=== PATIENT | female | born 1950 | race Caucasian/White ===

== ENCOUNTER 2016-08-26 09:42 | Inpatient (IN) | payer OTHER ==
[~2016-08-26] VITALS: Ht 165.1 cm; Wt 75.7 kg
--- NOTE | ~2016-08-26 | EKG ---
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 08/27/16 0828 04 04 Ulises Paniagua MD, FAC /EPI
--- NOTE | ~2016-08-26 | HC ---
[facility] [place] [address] CONSULTATION Name: LUPE DOSHI Room #: 459-P ADM IN M.R.#: [id number] Admission: 08/26/16 Attend Phys: Mahamed Garnett MD Discharge: Date of : 50 Report #: [id number] THIS REPORT FOR: //name// CC: Mir Garnett HISTORY OF PRESENT ILLNESS: The patient was 66-year-old with cavitary left lung lesion. The patient was a 66-year-old diagnosed in April with systemic lupus erythematosus. Placed on prednisone and has been slowly weaning down to 10 mg a day. She still has not felt well since her hospitalization. She has intermittent night sweats and low grade fever. Over the last several weeks, she has had progressive pain in her left shoulder. Imaging studies showed a cavitary lesion in her left lung. I have not been able to visualize this CT scan. She was scheduled to have another CT scan with contrast today, but her creatinine was up to 1.8 and this was put on hold. She has had mild weight loss. No hemoptysis. Minimal cough, no sputum production. ALLERGIES: NAPROSYN, DOXYCYCLINE. MEDICATIONS: As noted on her OCT. She was on oral antibiotics. She did not know the nature of it. She has been on that for approximately 2 weeks. PAST MEDICAL HISTORY, FAMILY HISTORY, AND SOCIAL HISTORY: Unchanged from her history and physical. It is noted that she did have right lung biopsy in 2013, which revealed diffuse nodular lymphoid, hyperplasia involving the right upper lobe. She also at that time grew Aspergillus from her bronchoscopy. There was no positive pathology for fungus or AFB and cultures of lymph node from that surgery was negative as well. The patient lives around [place], [place]. She is a past smoker with minimal alcohol intake. She was also diagnosed with hepatitis C genotype 1a, but has not been on any treatment nor she had any further workup for this. FAMILY HISTORY: Noncontributory. SOCIAL HISTORY: As noted above, has remained fairly active. No HIV risk factors. Her HIV antibody in 2013 was negative. REVIEW OF SYSTEMS: She has had no peripheral edema. No nausea, vomiting, diarrhea, dysuria or frequency. PHYSICAL EXAMINATION: VITAL SIGNS: She is afebrile, hemodynamically stable. GENERAL: She is alert and cooperative and pleasant, in no acute distress. SKIN: Unremarkable. LYMPH: Unremarkable. [address] [address] CONSULTATION Name: LUPE DOSHI Room #: 459-P [facility] IN [facility].#: [id number] Admission: 08/26/16 Attend Phys: Mahamed Garnett MD Discharge: Date of : 50 Report #: [id number] HEENT: Unremarkable. NECK: Supple. LUNGS: Clear. HEART: Regular without murmur, gallop or rub. ABDOMEN: Soft, nontender, no hepatosplenomegaly or mass. EXTREMITIES: Unremarkable. LABORATORY STUDIES: Troponin negative. Lactic acid 1.1. Sedimentation rate 55. Legionella urine antigen and strep pneumo urine antigen negative. Ultrasound of the right upper extremity was negative for DVT. Urinalysis unremarkable. Chest x-ray, no acute pulmonary infiltrates. ABG showed a pO2 of 68, pCO2 of 46, pH 7.37, creatinine 1.8. Liver function test normal, no CBC has been ordered yet. IMPRESSION: A 66-year-old with by report a cavitary left lung lesion with ongoing left shoulder pain, etiology is yet to be determined. She has been on corticosteroids for lupus. Recommend further workup for infectious causes. We will repeat her serologic studies. Check a T-SPOT and repeat her human immunodeficiency virus studies. Likely need tissue diagnosis. <ELECTRONICALLY SIGNED> By: Robin Shpiley MD 08/27/16 1045 24 [id number] Robin Shipley MD /nt
--- NOTE | ~2016-08-26 | 2DMMODE ---
[facility] [place] [address] 2 D/M-MODE ECHOCARDIOGRAM Name: JADA ALFORDNEVALUPE Gagandeep Room #: 459-P ADM IN M.R.#: [id number] Admission: 08/26/16 Attend Phys: Lizzette Daley Discharge: Date of : 50 Date of Service: 08/27/16 1541 Report #: [id number] THIS REPORT FOR: //name// Transthoracic Echocardiography Ordering physician: Mario Quintana Referring physician: Mario Quintana Richard R. Smith, Timothy W. Improvement Leader: Maribel Yap Indications/History: Septic emboli to lungs. Hx: HOCM, COPD, DM BP: 160 / HR: 72bpm Height: 65in Weight: 167.6lb 54 Study data: M-mode, complete 2D, complete spectral Doppler, and color Doppler. Location: Bedside. Routine. Image quality was adequate. 2D measurements Normal Normal LVID ED 45mm 36-57 IVS ED 14.3mm 6-11 LVID ES 26.5mm 23-40 LVPW ED 11.8mm 6-11 LA volume 26ml/m2 16-28 AoRoot diam 35.1mm 21-37 index ED LVOT diameter 21mm 18-23 Findings: Left ventricle: The cavity size was normal. Wall thickness was increased in a pattern of moderate LVH. Systolic function was hyperdynamic. The estimated ejection fraction was in the range of 70% to 75%. Wall motion was normal. Dynamic left ventricular outflow tract gradient with a peak velocity at rest 6.3m/s (158mmHg) increasing with valsalva to 200mmHg. Right ventricle: The cavity size was normal. Systolic function was normal. Right atrium: The atrium was normal in size. Left atrium: The atrium was normal in size. Volume index: [facility] [address] [place] [address] 2 D/M-MODE ECHOCARDIOGRAM Name: LUPE DOSHI Room #: 459-P [facility] IN ..#: [id number] Admission: 08/26/16 Attend Phys: Lizzette Daley Discharge: Date of : 50 Date of Service: 08/27/16 1541 Report #: [id number] 26ml/m2 (S). Aortic valve: Mildly calcified leaflets. Doppler: There was no stenosis. No regurgitation. Peak velocity: 229.2cm/s (S). Peak gradient: 21mm Hg (S). Mitral valve: Structurally normal valve. There was systolic anterior motion of the mitral valve. Doppler: There was no evidence for stenosis. Difficult to assess due to eccentric jet; mild to moderate regurgitation. Peak E-wave velocity: 127.8cm/s. Peak gradient: 6.5mm Hg (D). Peak A-wave velocity: 158cm/s. Tricuspid valve: Structurally normal valve. Doppler: There was no evidence for stenosis. Trivial regurgitation. Regurgitant peak velocity: 325.8cm/s. Peak RV-RA gradient: 42mm Hg (S). Pulmonic valve: Structurally normal valve. Doppler: There was no evidence for stenosis. Trivial regurgitation. Pericardium: There was no pericardial effusion. Aorta: Aortic root: The aortic root was normal in size. Pulmonary artery: Systolic pressure was estimated to be 45mm Hg. Diastolic function: Doppler parameters are consistent with abnormal left ventricular relaxation (grade 1 diastolic dysfunction). Systemic veins: Inferior vena cava: The vessel was normal in size; the respirophasic diameter changes were in the normal range (= 50%). Conclusions 1. Left ventricle: The cavity size was normal. Wall thickness was increased in a pattern of moderate LVH. Systolic function was hyperdynamic. The estimated ejection fraction was in the range of 70% to 75%. Wall motion was normal. Dynamic left ventricular outflow tract gradient with a peak velocity at rest 6.3m/s (158mmHg) increasing with valsalva to 200mmHg. Doppler parameters are consistent with abnormal left ventricular relaxation (grade 1 diastolic dysfunction). 2. Aortic valve: Mildly calcified leaflets. There was no stenosis. No regurgitation. 3. Mitral valve: Structurally normal valve. There was systolic anterior motion of the mitral valve. Difficult to assess due to eccentric jet; mild to moderate [facility] [address] [place] [address] 2 D/M-MODE ECHOCARDIOGRAM Name: LUPE DOSHI Gagandeep Room #: 459-P [facility] IN ..#: [id number] Admission: 08/26/16 Attend Phys: Lizzette Daley Discharge: Date of : 50 Date of Service: 08/27/16 1541 Report #: [id number] regurgitation. 4. Pericardium, extracardiac: There was no pericardial effusion. 5. Pulmonary arteries: Systolic pressure was estimated to be 45mm Hg. <ELECTRONICALLY SIGNED> By: Ulises Paniagua MD, [facility] 08/27/16 1737 1541 1737 Ulises Paniagua MD, FACC /denny
--- NOTE | ~2016-08-26 | HC ---
[facility] [place] [address] CONSULTATION Name: LUPE DOSHI Room #: 459-P [facility] IN M.R.#: [id number] Admission: 08/26/16 Attend Phys: Mahamed Garnett MD Discharge: 09/04/16 Date of : 50 Report #: [id number] THIS REPORT FOR: //name// CC: Mir Garnett DATE OF SERVICE: 08/26/2016 REASON FOR CONSULTATION: Cavitary infiltrates. IMPRESSION: Cavitary infiltrates. The main infiltrate is better than prior. On 08/11/2016 there are a few areas that are worse. She complains of pain in left upper chest, occasional fevers, no hemoptysis. No history of DVT or PE. Anemia. HOME MEDICATIONS: Included magnesium, ____, Augmentin, prednisone, lisinopril, hydrocodone, lorazepam, Adderall, amlodipine, ____, Requip, Symbicort, albuterol. PAST MEDICAL HISTORY: Included COPD, RUBIN, asthma, rheumatoid arthritis, lupus, thyroid disease, a lung biopsy showed diffuse nodular lymphoid hyperplasia, chronic pain, restless legs, diabetes, hypertension, depression, neuropathy, hypothyroidism. PAST SURGICAL HISTORY: In the past included tonsillectomy, adenoidectomy, hysterectomy, spine surgery, appendectomy, 10/2012 showed right upper lobe biopsy. FAMILY HISTORY: Lung CA, hyperlipidemia. SOCIAL HISTORY: Positive tobacco in past. No significant ETOH. 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 ALLERGIES: ALEVE AND DOXYCYCLINE. REVIEW OF SYSTEMS: Decreased hearing, sore tongue, wears glasses, short of breath, cough, occasional whitish phlegm, may have had an episode of hemoptysis a week ago. Heart was irregular, positive peripheral edema, some difficulty swallowing, negative nocturia, positive headache. FVC was 1.85, FEV1 of 1.06, 43% predicted. On 08/18, white count 11.08, hemoglobin 8.7, platelets 304, sed rate 55. ____ sed rate was 28, magnesium 1.5. Sed rate on 06/10 showed 18. C-reactive protein was 2. ABG showed pH 7.375, pCO2 of 46, pO2 of 69 on room air. Echo did not show regurgitation. Dr. Bentley's note from 07/21 showed history of systemic lupus, on Plaquenil, meloxicam, and prednisone when last seen. [address] [address] CONSULTATION Name: LUPE DOSHI Room #: 459-P DIS IN M.R.#: [id number] Admission: 08/26/16 Attend Phys: Mahamed Ganrett MD Discharge: 09/04/16 Date of : 50 Report #: [id number] We will follow closely with you. <ELECTRONICALLY SIGNED> By: Kylee Ludwig MD 09/16/16 2234 1559 13 Kylee Ludwig MD /jose m
--- NOTE | ~2016-08-26 | HC ---
[facility] [address] [place] [address] CONSULTATION Name: LUPE DOSHI Room #: 459-P ADM IN M.R.#: [id number] Admission: 08/26/16 Attend Phys: Mahamed Garnett MD Discharge: Date of : 50 Report #: [id number] THIS REPORT FOR: //name// CC: Oly Garnett MD REASON FOR CONSULTATION: Anemia. 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 She eats red meat two to three times per week. She is aware of some slight hemorrhoidal bleed in her tissue paper, but no melena, hematochezia, hemoptysis or hematuria. Last EGD and colonoscopy was done in [place] about 10 years ago, reportedly normal. No family history of anemia. Note that in reviewing the lab, her hemoglobin, which have been so in the lows over the last several years, maybe in the 10 range, has dropped down to 8.5; MCV that had been maybe 92 and 88 is now down to 79. Recent iron levels show a percent saturation of 6, iron 19, TIBC of 341, very consistent with severe iron deficiency, also ferritin of 19, folic acid 14.4, vitamin B12 of 383. Recent CMP showed a creatinine of 1.4 with an EGFR between 38 and 55. Bilirubin normal, retic count not available. The patient has been more fatigued lately, was admitted with a finding of cavitary infiltrate. She also has gram negative rods in her blood and is concerned that this may be septic emboli. REVIEW OF SYSTEMS: The patient had had some slight may be not exactly fevers, but it felt slightly warm, has had shortness of air related to her sleep apnea and COPD and asthma. No significant weight loss recently. No new skin rashes. FAMILY MEDICAL HISTORY: Father had dementia and hypertension. Mother had lung cancer. One brother from a motor vehicle accident. One sister with hypertension. Four children, some have asthma. Currently, she lives in [place] and stopped smoking in 2002. No significant alcohol, no street drugs. ALLERGIES: To ALEVE and DOXYCYCLINE. PAST MEDICAL HISTORY: Notable for the obstructive sleep apnea that she uses oxygen at night, not CPAP, also COPD, rheumatoid arthritis/lupus overlapped, hypothyroidism, past lung biopsy showing nodular lymphoid hyperplasia, restless legs, type 2 diabetes, hypertension, neuropathy, history of [facility] [address] [place] [address] CONSULTATION Name: JADA AYALALUPE Gagandeep Room #: 459-P [facility] IN M.R.#: [id number] Admission: 08/26/16 Attend Phys: Mahamed Garnett MD Discharge: Date of : 50 Report #: [id number] spotted fever. PAST SURGICAL HISTORY: Included tonsillectomy and adenoidectomy, oophorectomy and hysterectomy for large ovarian cyst, appendectomy, right lung biopsy October 2012. CURRENT MEDICATIONS: Include amelioride 10 mg daily, Zosyn 3.375 mg IV q. 6 hours, pantoprazole 40 daily, prednisone 10 daily, Lovenox 40 mg at bedtime, docusate 100 b.i.d., magnesium 120 mg b.i.d., ropinirole 4 mg b.i.d., amitriptyline 10 mg at bedtime p.r.n., lorazepam 1 mg at bedtime p.r.n., ipratropium and albuterol q. 4 hours 3 mL respiratory therapy, albuterol q.i.d. p.r.n., MiraLax 17 grams p.r.n., Dulcolax p.r.n., fentanyl p.r.n. PHYSICAL EXAMINATION: VITAL SIGNS: Weight is 167 pounds, which is 75.7 kilograms, height is 5 feet 5 inches or 165 cm. The patient currently is using 3 liters of oxygen at night. NEUROLOGICAL: The patient is alert, appears to be a reliable historian. LUNGS: Clear. HEART: Regular rate. ABDOMEN: Soft. EXTREMITIES: Without clubbing, cyanosis or edema. ASSESSMENT AND PLAN: 1. Anemia, iron deficient. Discussed with patient will make plans for IV iron and consult GI, this is consistent with iron deficiency anemia. We will also check EPO level. She may be having a chronic kidney component. 2. Gram-negative rods and cavitary lesion, per infectious disease. 3. Hypertension. Meds per others. 4. Asthma, obstructive sleep apnea, chronic obstructive pulmonary disease. Meds per others. 5. Question of rheumatoid arthritis and lupus. Prednisone, Tien Box to see the patient. 6. Neuropathy. Continues meds for that. We will follow with you. <ELECTRONICALLY SIGNED> By: Mir Rosas MD 08/31/16 0737 0841 1046 Mir Rosas MD /nt
--- NOTE | ~2016-08-26 | S ---
[facility] [place] [address] SURGICAL PATH RPT PROCEDURE Name: LUPE DOSHI Room #: 459-P ADM IN M.R.#: [id number] Admission: 08/26/16 Date of : 50 Discharge: Report #: [id number] Path Case #: [id number] PATHOLOGY REPORT COLLECTION DATE: 08/27/2016 RECEIVED DATE: 08/27/2016 SUBMITTING PHYS: Dr. Kylee Ludwig OTHER PHYS: Dr. Mahamed Dumont SPECIMEN(S) RECEIVED: A.Peripheral smear * * * * * * * * * * * * FINAL DIAGNOSIS: Peripheral blood smear: - Moderate to severe microcytic anemia. (see comment) COMMENT: Overall the peripheral blood has moderate to severe microcytic anemia. WBC and platelets are within the normal reference ranges. The etiology of the findings is unclear based entirely on slide review. Potential causes of microcytic anemia include iron deficiency and thalassemia. Other potential causes of anemia include anemia of chronic disease, treated and/or compensated vitamin and mineral deficiencies, acute blood loss, dilutional and primary bone marrow disorders. Correlation with clinical history and additional laboratory data is recommended. (CLW:all; d/t: 08/27/2016) PATHOLOGIST: Bela Kaur M.D. REPORT ELECTRONICALLY SIGNED BY: Bela Kaur M.D. DATE/TIME: 08/27/2016 16:43 * * * * * * * * * * * * MICROSCOPIC DESCRIPTION: CBC Data (08/27/16): WBC 8,300/uL, RBC 3.48, Hgb 8.5 g/dL, Hct 27.5%, MCV 79.0 fl, MCH 24.5 pg, MCHC 31.0, RDW 15.8%, platelet count 200K/uL. Automated white blood cell differential: segs 75.4%, lymphs 18.4%, monos 4.9%, eos 0.3%, and basos 1.0%. Peripheral Blood Smear: Cytomorphological examination of the Ness's stained peripheral blood smear confirms the provided data. Red blood cells show moderate to severe microcytic anemia with mild anisocytosis. No significant [address] [address] SURGICAL PATH RPT PROCEDURE Name: LUPE DOSHI Room #: 459-P [facility] IN [facility].#: [id number] Admission: 08/26/16 Date of : 50 Discharge: Report #: [id number] Path Case #: [id number] poikilocytosis is identified. No schistocytes or microspherocytes are seen. White blood cells are predominantly segmented neutrophils and are without significant dyspoiesis or significant left shift. Lymphocytes are predominantly small, round and mature appearing with condensed chromatin and scant cytoplasm with admixed large granular lymphocytes. Monocytes are mature. Platelets are adequate in number and mainly normal in morphology with rare larger platelets noted. Occasional hypersegmented neutrophils are noted. CLINICAL HISTORY: 66-year-old woman with anemia. Morphologic review of the peripheral blood smear is requested by the patient's physician. INITIAL CPT CODE(S): A; [place] Professional services performed by [facility] at [facility] [address], [place] [address] Technical services performed by [facility] at [address] [place] [address], [address], [place] [address]. [facility] [address] [place] [address] PHONE: [phone] DIRECTOR: Eduardo Cruz M.D. * * * END OF REPORT * * *
--- NOTE | ~2016-08-26 | S ---
[facility] [place] [address] SURGICAL PATH RPT PROCEDURE Name: LUPE HENSON Room #: 459-P ADM IN M.R.#: [id number] Admission: 08/26/16 Date of : 50 Discharge: Report #: [id number] Path Case #: [id number] PATHOLOGY REPORT COLLECTION DATE: 09/02/2016 RECEIVED DATE: 09/03/2016 SUBMITTING PHYS: Dr. Slime Ruiz OTHER PHYS: Dr. Mir Garnett SPECIMEN(S) RECEIVED: A.Bx gastritis B.Polyp rectum * * * * * * * * * * * * FINAL DIAGNOSIS: A. "Bx gastritis", biopsy: - Gastric mucosa with mild reactive changes and mild chronic inflammation. - Negative H. pylori immunohistochemical stain (block A1); control reacted appropriately. B. "Polyp rectum", biopsy: - Hyperplastic polyp. (CLW:jaelyn; d/t: 09/04/2016) PATHOLOGIST: Bela Kaur M.D. REPORT ELECTRONICALLY SIGNED BY: Bela Kaur M.D. DATE/TIME: 09/04/2016 12:20 * * * * * * * * * * * * GROSS PATHOLOGY: A. Received in formalin labeled "Lupe Henson and bx gastritis," are 2 segments of alejandro soft tissue measuring 0.9 x 0.2 x 0.2 cm in aggregate dimensions and measuring 0.4 and 0.5 cm in maximum dimension. The specimen is submitted entirely in cassette A1. B. Received in formalin labeled "Lupe Henson and polyp rectum," is a segment of alejandro soft tissue measuring 0.5 cm in maximum dimension. The specimen is submitted entirely in cassette B1. (TTL; 09/03/2016) CLINICAL HISTORY: Anemia, positive C. difficile INITIAL CPT CODE(S): A; 445[address], [address] [facility] [address] [place] [address] SURGICAL PATH RPT PROCEDURE Name: LUPE HENSON Room #: 459-P ADM IN ..#: [id number] Admission: 08/26/16 Date of : 50 Discharge: Report #: [id number] Path Case #: [id number]; [id number] Professional services performed by [facility] at [address] , [place] [address] Technical services performed by [facility] at [address] [place] [address], [place] [address]. [facility] [address] [place] [address] PHONE: [phone] DIRECTOR: Eduardo Cruz M.D. * * * END OF REPORT * * *
--- NOTE | ~2016-08-26 | P ---
[facility] [place] [address] PROCEDURE REPORT Name: LUPE DOSHI Room #: 459-P ADM IN M.R.#: [id number] Admission: 08/26/16 Attend Phys: Mahamed Garnett MD Discharge: Date of : 50 Report #: [id number] THIS REPORT FOR: //name// CC: Mir Linares MD DATE OF SERVICE: 09/02/2016 PROCEDURE #1: EGD with biopsies. PATIENT OF: Mir Dumont DO and Mahamed Garnett MD. INDICATION FOR PROCEDURE: Evaluate for possible sources of iron deficiency anemia. CONSENT: An informed consent for this procedure was obtained prior to the administration of any medication. The risks of the procedure, which include bleeding, perforation, infection, complications of sedation, and the possibility I could miss something, have been explained to the patient, and she has indicated her consent by signing. DESCRIPTION OF PROCEDURE: Propofol was slowly titrated before and during this procedure for the patient's comfort by the anesthesia service. The [employer] upper videoscope was introduced through the upper esophageal sphincter and advanced under direct visualization to the descending duodenum. Findings are noted on withdrawal of the scope. The duodenal mucosa appears normal, throughout its entirety. No source of blood loss was seen here. Pylorus, normal mucosa. Antrum, mild patchy erythema. Body, mild patchy erythema. Cardia and fundus, normal mucosa. Retroflexed view did not reveal any hiatal hernia at this time. Biopsies were obtained from the antrum and body of the stomach for histopathology to evaluate for possible Helicobacter pylori infection. The scope was withdrawn into the esophagus. The z-line is appropriately located at the top of the gastric folds and appears normal. The esophageal mucosa appears normal throughout its entirety. The scope was withdrawn. The patient was turned for colonoscopy. IMPRESSION: 1. Diffuse patchy gastric erythema, some nodularity. Biopsies pending for histopathology. 2. Normal esophagus. 3. Normal duodenum. RECOMMENDATIONS: To await those biopsy results and we will proceed with colonoscopy at this time. [facility] [address] [place] [address] PROCEDURE REPORT Name: LUPE DOSHI Room #: 459-P [facility] IN .R.#: [id number] Admission: 08/26/16 Attend Phys: Mahamed Garnett MD Discharge: Date of : 50 Report #: [id number] Thank you very much once again for allowing me to participate in her care. PROCEDURE #2: Colonoscopy with biopsy. CONSENT: An informed consent for this procedure was obtained prior to the administration of any medication. The risks of the procedure which include bleeding, perforation, infection, complications of sedation, and the possibility I could miss something have been explained to the patient, and she has indicated her consent by signing. DESCRIPTION OF PROCEDURE: Propofol was slowly titrated before and during this procedure, and the EGD that preceded it. The [employer] colonoscope was introduced through the anal sphincter and advanced under direct visualization to the terminal ileum. Findings are noted on withdrawal of the scope. Terminal ileum: Mucosa appears normal. Cecum: Normal mucosa. Ascending colon: Normal mucosa. Hepatic flexure: Normal mucosa. Transverse colon: Normal mucosa. Splenic flexure: Normal mucosa. Descending colon: Normal mucosa. Sigmoid colon: A few uncomplicated diverticula noted in the sigmoid colon. Rectum: There is a small 4 mm polyp removed in toto with the regular biopsy forceps, and sent to pathology lab. Good hemostasis was noted after that polypectomy. Retroflexed view in the rectum did not reveal any other abnormalities. The scope was withdrawn. The patient went to the recovery area in stable condition. She tolerated the procedure well. IMPRESSION: 1. Normal colonoscopic exam to the terminal ileum except for a few uncomplicated sigmoid diverticula and a single rectal polyp, sized 4 mm, removed as above. The etiology of the patient's iron deficiency anemia is not clear from this exam. I would recommend proceeding with an M2A capsule study now to evaluate for small bowel source of blood loss and to await the biopsy results. Thank you very much once again for allowing me to participate in her care. <ELECTRONICALLY SIGNED> By: Slime Ruiz DO 09/03/16 1054 [id number] [id number] Slime Ruiz DO /nt
[~2016-08-26 09:42] MED LIST: ACCUNEB SO1.25 MG/1 INH; ACETAMINOPHEN325 M1 PO; ADDERALL 30 MG30 MG PO; AMITRIPTYLINE H10 M1 PO; AMLODIPINE BESY10 MG PO; ATIVAN1 MG PO; B COMPLETE1 EAC1 PO; BACLOFEN 10MG T10 MG PO; BACTRIM 400-801 EACH PO; BUDESONIDE0.25 MG/2 INH; CELEXA 20 MG TA20 M1 PO; DALIRESP500 MCG PO; DIFLUCAN100 MG PO; DOCUSATE SODIU100 MG PO; DUONEB 2.5-0.5 M3 ML INH; ESTRACE1 MG PO; FENTANYL PA50 MCG/HR TP; FISH OIL 1,0001 EAC5 PO; FLAXSEED OIL1000 M2; GLIPIZIDE5 MG PO; GLUCOPHAGE1000 MG PO; GLYCOLAX POWDER17 G1 PO; HUMALOG100 UNIT/1 SUBQ; HYDROCHLOROTHIA50 MG PO; HYDROCODON-ACE1 EAC5 PO; KLOR-CON 1010 MEQ PO; LASIX 20 MG TAB20 MG PO; LEVAQUIN 500 M500 M2 PO; LISINOPRIL20 MG PO; MAG DELAY64 MG PO; MAG6464 MG PO; MELOXICAM7.5 MG PO; METFORMIN HCL1000 MG PO; MIRTAZAPINE15 M2 PO; MUCINEX600 MG PO; MULTI VITAMIN1 EACH PO; NEURONTIN 300300 M1 PO; NEXIUM20 M1 PO; NYSTATIN 1100000 U/M SW&SWALLOW; OXYCODONE HCL15 MG PO; PREDNISONE 20 M20 M1 PO; PROAIR HFA8.5 GM INH; REQUIP 0.25 M0.25 M1 PO; REQUIP 0.25 M0.25 MG PO; SENNA-LAX8.6 MG PO; SLOW-MAG64 MG PO; SPIRIVA INH; SYNTHROID100 MCG PO; TEMAZEPAM30 MG PO; VENTOLIN HFA INH8 GM INH; VITAMIN D1000 UNI1 PO
[2016-08-26 13:25] VITALS: BP 116/48
[2016-08-26 13:57] LABS: ABG SAMPLE TYPE ARTERIAL; FIO2 21 %; HCO3 26.6 mmol/L (22.0-26.0); LACTATE 2.09 mmol/L (0.5-2.0); O2(CT) 13.4 mL/dL (15.0-23.0); PCO2 46.5 mmHg (35.0-45.0); PO2 68.7 mmHg (80.0-100.0); STICK SITE L.RADIAL; pH 7.375 (7.360-7.450); sO2 93.3 % (92.0-98.0)
[2016-08-26 14:41] LABS: URINE BILIRUBIN NEGATIVE (Negative); URINE BLOOD NEGATIVE (Negative); URINE COLOR YELLOW; URINE GLUCOSE-RANDOM* NEGATIVE (Negative); URINE KETONES NEGATIVE (Negative); URINE LEUKOCYTES-REFLEX NEGATIVE (Negative); URINE PROTEIN (DIPSTICK) NEGATIVE (Negative); URINE UROBILINOGEN 0.2 E.U./dl (0.2-1.0)
[2016-08-26] MEDS ORDERED: ALBUTEROL2.5 MG/0.5 INH (14:44)
[2016-08-26] MEDS ORDERED: SYMBICORT160 MCG/4. INH (14:45)
[2016-08-26] MEDS ORDERED: DULCOLAX5 MG PO (14:46)
[2016-08-26] MEDS ORDERED: MAG6464 MG PO (14:52)
[2016-08-26] MEDS ORDERED: PREDNISONE 10 M10 MG PO (14:53)
[2016-08-26 16:55] LABS: ALBUMIN 3.1 g/dL (3.4-5.0); CALCIUM 9.4 mg/dL (8.5-10.1); CREATININE 1.8 mg/dL (0.6-1.3); POTASSIUM 4.7 mmol/L (3.5-5.1); TOTAL BILIRUBIN 0.2 mg/dL (<0.1-1.0); TOTAL PROTEIN 7.5 g/dL (6.4-8.2)
[2016-08-26 20:00] VITALS: BP 117/46
[2016-08-27] VITALS: BP 135/45
[2016-08-27 00:12] VITALS: BP 113/50
[2016-08-27 05:52] LABS: ABSOLUTE NEUTROPHILS 6.3 thou/uL (1.4-8.2); EOSINOPHILS 0.3 % (0.0-3.0); HEMATOCRIT 27.5 % (37.0-47.0); HEMOGLOBIN 8.5 gm/dL (12.0-15.0); LYMPHOCYTES 18.4 % (24.0-44.0); MCH 24.5 pg (26.0-34.0); MONOCYTES 4.9 % (1.0-8.0); PLATELET COUNT 200 thou/uL (150-400); POLYS 75.4 % (36.0-66.0); RBC 3.48 mil/uL (4.20-5.00); RDW 15.8 % (10.5-14.5); WBC 8.3 thou/uL (4.0-11.0)
[2016-08-27 05:59] LABS: MANUAL DIFF NO
[2016-08-27 06:10] LABS: ALBUMIN 2.9 g/dL (3.4-5.0); CALCIUM 9.1 mg/dL (8.5-10.1); CREATININE 1.4 mg/dL (0.6-1.3); MAGNESIUM 1.5 mg/dL (1.8-2.4); POTASSIUM 4.2 mmol/L (3.5-5.1); TOTAL BILIRUBIN 0.2 mg/dL (<0.1-1.0); TOTAL PROTEIN 6.9 g/dL (6.4-8.2)
[2016-08-27 09:37] VITALS: BP 144/64
[2016-08-27 13:34] VITALS: BP 160/54
[2016-08-27 14:10] LABS: HIV ANTIBODY Non Reactive (Non Reactive)
[2016-08-27 14:45] VITALS: BP 146/72
[2016-08-27 19:08] LABS: % SATURATION 6 % (15-55); FOLIC ACID 14.4 ng/mL (>3.0); IRON 19 ug/dL (27-139); TIBC 341 ug/dL (250-450); UIBC 322 ug/dL (118-369)
[2016-08-27 21:23] VITALS: BP 153/50
[2016-08-28 05:19] VITALS: BP 128/60
[2016-08-28 07:07] LABS: ALBUMIN 2.6 g/dL (3.4-5.0); CALCIUM 8.7 mg/dL (8.5-10.1); CREATININE 1.2 mg/dL (0.6-1.3); PHOSPHORUS 2.4 mg/dL (2.5-4.9); POTASSIUM 4.3 mmol/L (3.5-5.1)
[2016-08-28 07:21] VITALS: BP 146/60
[2016-08-28 08:47] LABS: MAGNESIUM 1.8 mg/dL (1.8-2.4)
[2016-08-28 12:10] VITALS: BP 147/58
[2016-08-28 15:07] LABS: c-ANCA <1:20 titer (Neg:<1:20); p-ANCA <1:20 titer (Neg:<1:20)
[2016-08-28 16:09] VITALS: BP 157/62
[2016-08-28 18:06] LABS: BLASTOMYCES-IMMUNODIFF Negative (Neg:<1:1); COCCIDIOIDES-IMMUNODIFF Negative (Neg:<1:1); HISTOPLASMA-IMMUNODIFF Negative (Neg:<1:1)
[2016-08-28 21:10] VITALS: BP 168/69
[2016-08-29 04:44] VITALS: BP 170/76
[2016-08-29 05:07] LABS: URINE MAGNESIUM-mg/24hr 178.2 mg/24 hr (12.0-293.0); URINE MAGNESIUM-mg/dl 8.1 mg/dL (Not Estab.)
[2016-08-29 08:45] LABS: ALBUMIN 2.7 g/dL (3.4-5.0); CALCIUM 9.1 mg/dL (8.5-10.1); CREATININE 1.1 mg/dL (0.6-1.3); MAGNESIUM 1.5 mg/dL (1.8-2.4); POTASSIUM 4.8 mmol/L (3.5-5.1)
[2016-08-29 09:48] VITALS: BP 157/74
[2016-08-29 12:08] VITALS: BP 145/65
[2016-08-29 15:33] VITALS: BP 144/72
[2016-08-29 17:10] LABS: ASPERGILLUS FLAVUS-ID Negative (Neg:<1:1); ASPERGILLUS FUMIGATUS-ID Negative (Neg:<1:1); ASPERGILLUS NIGER-ID Negative (Neg:<1:1)
[2016-08-29 20:35] VITALS: BP 174/92
[2016-08-30 04:18] VITALS: BP 145/67
[2016-08-30 05:45] LABS: HEMATOCRIT 30.4 % (37.0-47.0); HEMOGLOBIN 9.6 gm/dL (12.0-15.0); MCH 24.6 pg (26.0-34.0); MCHC 31.5 % (28.0-37.0); RBC 3.9 mil/uL (4.20-5.00); RDW 15.8 % (10.5-14.5); WBC 7.4 thou/uL (4.0-11.0)
[2016-08-30 08:30] VITALS: BP 138/67
[2016-08-30 09:09] LABS: ALBUMIN 3.1 g/dL (3.4-5.0); CALCIUM 9.6 mg/dL (8.5-10.1); CREATININE 1.1 mg/dL (0.6-1.3); MAGNESIUM 1.8 mg/dL (1.8-2.4); PHOSPHORUS 2.5 mg/dL (2.5-4.9); POTASSIUM 5.5 mmol/L (3.5-5.1)
[2016-08-30 12:00] VITALS: BP 141/67
[2016-08-30 16:30] VITALS: BP 141/67
[2016-08-30 20:00] VITALS: BP 148/74
[2016-08-31 04:00] VITALS: BP 127/61
[2016-08-31 07:35] VITALS: BP 109/59
[2016-08-31 07:44] LABS: CALCIUM 9.1 mg/dL (8.5-10.1); CREATININE 1.1 mg/dL (0.6-1.3); PHOSPHORUS 3.6 mg/dL (2.5-4.9); POTASSIUM 4.7 mmol/L (3.5-5.1)
[2016-08-31 09:20] LABS: NIL (NEGATIVE) CONTROL SPOT CT 1; PANEL A SPOT CT 1; PANEL B SPOT CT 0; T-SPOT.TB Negative
[2016-08-31 09:21] LABS: POSITIVE CONTROL SPOT COUNT > 20
[2016-08-31 11:18] VITALS: BP 114/94
[2016-08-31 15:56] VITALS: BP 136/61
[2016-08-31 20:26] VITALS: BP 155/60
[2016-09-01 03:08] VITALS: BP 151/54
[2016-09-01 06:57] LABS: ALBUMIN 3.1 g/dL (3.4-5.0); CALCIUM 9.3 mg/dL (8.5-10.1); CREATININE 0.9 mg/dL (0.6-1.3); MAGNESIUM 1.5 mg/dL (1.8-2.4); PHOSPHORUS 3.6 mg/dL (2.5-4.9); POTASSIUM 5.1 mmol/L (3.5-5.1)
[2016-09-01 08:14] VITALS: BP 133/75
[2016-09-01 13:09] VITALS: BP 144/58
[2016-09-01 15:24] VITALS: BP 123/53
[2016-09-01 20:09] VITALS: BP 141/59
[2016-09-02 05:30] VITALS: BP 149/62
[2016-09-02 08:00] VITALS: BP 133/66
[2016-09-02 16:14] VITALS: BP 142/95
[2016-09-02 19:29] VITALS: BP 154/78
[2016-09-03 04:16] VITALS: BP 152/55
[2016-09-03 08:00] VITALS: BP 153/66
[2016-09-03] MEDS ORDERED: FLAGYL500 MG PO ×2 (10:56→11:52)
[2016-09-03] MEDS ORDERED: BENAZEPRIL HCL20 MG PO (10:56)
[2016-09-03] MEDS ORDERED: OXYCODONE HCL15 MG PO (10:56)
[2016-09-03] MEDS ORDERED: MIDAMOR 5MG TABL5 M1 PO (10:57)
[2016-09-03] MEDS ORDERED: PREDNISONE 5 MG5 M1 PO (10:57)
[2016-09-03] MEDS ORDERED: MAGNESIUM OXID400 MG PO (10:57)
[2016-09-03] MEDS ORDERED: CIPRO500 MG PO ×2 (10:58→11:52)
[2016-09-03 11:54] LABS: ALBUMIN 3.4 g/dL (3.4-5.0); CALCIUM 10.1 mg/dL (8.5-10.1); CREATININE 1.1 mg/dL (0.6-1.3); MAGNESIUM 1.6 mg/dL (1.8-2.4); POTASSIUM 5.8 mmol/L (3.5-5.1)
[2016-09-03 12:50] VITALS: BP 146/53
[2016-09-03 18:13] LABS: CALCIUM 10.2 mg/dL (8.5-10.1); CREATININE 1.1 mg/dL (0.6-1.3); POTASSIUM 5.8 mmol/L (3.5-5.1)
[2016-09-03 19:34] VITALS: BP 134/83
[2016-09-04 04:05] VITALS: BP 114/67; BP 129/54
[2016-09-04 05:41] LABS: HEMATOCRIT 30.7 % (37.0-47.0); HEMOGLOBIN 9.7 gm/dL (12.0-15.0); MCH 25.5 pg (26.0-34.0); MCHC 31.6 % (28.0-37.0); MCV 80.5 fL (80.0-100.0); RBC 3.82 mil/uL (4.20-5.00); RDW 16.9 % (10.5-14.5); WBC 7.1 thou/uL (4.0-11.0)
[2016-09-04 06:33] LABS: CALCIUM 9.2 mg/dL (8.5-10.1); CREATININE 1.1 mg/dL (0.6-1.3); MAGNESIUM 1.4 mg/dL (1.8-2.4); PHOSPHORUS 3.7 mg/dL (2.5-4.9); TOTAL BILIRUBIN 0.2 mg/dL (<0.1-1.0)
[2016-09-04 08:30] VITALS: BP 119/47
[2016-09-04] MEDS ORDERED: LOPRESSOR25 PO (10:32)
[2016-09-04 11:26] VITALS: BP 124/55
[2016-09-04 12:05] VITALS: BP 124/55
[2016-09-08] MEDS ORDERED: REQUIP2 MG PO ×2 (00:55→01:00)
[2016-09-16] MEDS ORDERED: LANTUS100 UNIT/M SUBQ (10:48)
[2016-09-16] MEDS ORDERED: PREDNISONE10 MG PO (10:48)
[2016-09-16] MEDS ORDERED: HYDROCODONE-CH473 M1 PO (10:48)
[2016-09-16] MEDS ORDERED: OXYCODONE HCL 55 MG PO (10:48)
[2016-09-16] MEDS ORDERED: ATIVAN1 MG PO (10:48)
[2016-09-16] MEDS ORDERED: NYSTATIN 1100000 U/M SW&SWALLOW (10:48)
[2016-09-16] MEDS ORDERED: ADDERALL 20 MG20 M1 PO (10:48)
[2016-09-16] MEDS ORDERED: PIPERACIL-TA3.375 G1 IV (15:24)
[2016-09-16] MEDS ORDERED: VANCO 1 GR1 GM/250 M IVPB (15:25)
[2016-09-16] MEDS ORDERED: VANCOMYCIN100 MG/ML PO (15:26)
== END 2016-09-04 12:53 | disposition home or self-care (01) | DRG 871 ==
LOC: 4W 09:42
PROVIDERS: Hospitalist; Internal Medicine; Internal Medicine Pulmonary Disease; Nurse Practitioner Adult Health; Specialist
DX: A41.9 Sepsis, unspecified organism (principal); J15.1 Pneumonia due to Pseudomonas; N17.0 Acute kidney failure with tubular necrosis; A04.7 Enterocolitis due to Clostridium difficile; E44.0 Moderate protein-calorie malnutrition; B19.20 Unspecified viral hepatitis C without hepatic coma; K59.00 Constipation, unspecified; M48.06 Spinal stenosis, lumbar region; E87.5 Hyperkalemia; D63.8 Anemia in other chronic diseases classified elsewhere; K62.1 Rectal polyp; K57.30 Diverticulosis of large intestine without perforation or abscess without bleeding; K29.50 Unspecified chronic gastritis without bleeding; J44.9 Chronic obstructive pulmonary disease, unspecified; G47.33 Obstructive sleep apnea (adult) (pediatric); D50.9 Iron deficiency anemia, unspecified; E11.22 Type 2 diabetes mellitus with diabetic chronic kidney disease; J45.909 Unspecified asthma, uncomplicated; M79.7 Fibromyalgia; F41.9 Anxiety disorder, unspecified; E83.42 Hypomagnesemia; N18.3 Chronic kidney disease, stage 3 (moderate); M06.9 Rheumatoid arthritis, unspecified; G25.81 Restless legs syndrome; I12.9 Hypertensive chronic kidney disease with stage 1 through stage 4 chronic kidney disease, or unspecified chronic kidney disease; M32.9 Systemic lupus erythematosus, unspecified; F32.9 Major depressive disorder, single episode, unspecified; E11.42 Type 2 diabetes mellitus with diabetic polyneuropathy; E03.9 Hypothyroidism, unspecified; Z87.891 Personal history of nicotine dependence; Z90.710 Acquired absence of both cervix and uterus; Z90.49 Acquired absence of other specified parts of digestive tract; Z98.890 Other specified postprocedural states; Z88.8 Allergy status to other drugs, medicaments and biological substances; Z80.1 Family history of malignant neoplasm of trachea, bronchus and lung; Z83.49 Family history of other endocrine, nutritional and metabolic diseases; Z68.27 Body mass index [BMI] 27.0-27.9, adult
CPT/HCPCS: 10045; 62110; 62900

== ENCOUNTER 2017-03-29 17:41 | Inpatient (IN) | payer OTHER ==
[~2017-03-29] VITALS: Ht 162.6 cm; Wt 76.7 kg
--- NOTE | ~2017-03-29 | HC ---
[facility] [address] [place] [address] CONSULTATION Name: LUPE DOSHI Room #: 311-P ADM IN M.R.#: [id number] Admission: 03/29/17 Attend Phys: Demarcus Weinberg MD Discharge: Date of : 50 Report #: [id number] THIS REPORT FOR: //name// CC: Demarcus Dumont DATE OF SERVICE: 04/07/2017 Glucoses decreasing with insulin readjustment including higher dose of bedtime Glargine. FBS lower at 189. Highest glucose ____ 362 at 0700. Total insulin dosage yesterday increased to 83 units. By: 0837 1014 Leon Vasquez MD /nt
--- NOTE | ~2017-03-29 | HC ---
[facility] [place] [address] CONSULTATION Name: JADA ALFORDMIGUELINALUPE HARDY Room #: 311-P ADM IN M.R.#: [id number] Admission: 03/29/17 Attend Phys: Demarcus Weinberg MD Discharge: Date of : 50 Report #: [id number] THIS REPORT FOR: //name// CC: Demarcus Dumont Patient of Dr. Weinberg, room 311. SUBJECTIVE: One of multiple admissions for this 67-year-old white female with a variety of medical problems including diabetes mellitus out of control due to high dose corticosteroids. The patient's prior history has been well documented up to the present. From an endocrine standpoint, the patient states she has had diabetes for at least 30 years and has been on insulin only when hospitalized or placed on high dose corticosteroids for pulmonary insufficiency. At home, the patient has been on what appears to be 2000 mg of metformin per day. She was recently started on what she states was a long-acting insulin, apparently 10 or 15 units b.i.d. Her medical record states she has been on 10 units of glargine once daily; however, details are not known. It is not clear whether the patient has been on any specific diet, glucose monitoring regimen or what her degree of prior control is. The patient is very clear on certain aspects, but somewhat hazy or evasive on multiple aspects of her diabetes control. Since hospitalization with high dose corticosteroids, the patient has been on Levemir insulin and very high dose lispro, both t.i.d. She is managed by sliding scale with blood sugars as high as the 500s. There is no recent hemoglobin A1c to document prior glucose control. Current corticosteroid dosage is 20 mg of prednisone b.i.d. CURRENT MEDICATIONS: Include hydromorphone, oxybutynin, fentanyl, oxycodone, amiloride, ropinirole, dextroamphetamine, amlodipine, metoprolol, lorazepam, clotrimazole, albuterol, enoxaparin, acetaminophen, p.r.n. nitroglycerin, ondansetron, amoxicillin/clavulanic acid, insulin as mentioned above and possibly other medications. Otherwise, there is no pertinent endocrine history to report at this time. OBJECTIVE: LABORATORY DATA: Sodium , potassium 4.8, chloride 96, CO2 26, creatinine 1.1. Glucoses are variable as high as 500, most recent lab glucose is 348, SGOT 27, amylase 113, lipase 296, bilirubin 0.8, calcium 9.2, phosphorus 3.7, magnesium 1.3, uric acid 6.6. Alkaline phosphatase 63, SGPT 28, total protein 8.1, albumin 3.2. PHYSICAL EXAMINATION: GENERAL: Well-nourished, well-developed 67-year-old white female in no acute distress. The patient is alert and oriented times 3; however, at one point stated to have a nice weekend, even though it was Wednesday. As mentioned, she is [address] [address] CONSULTATION Name: JADALUPE CUMMINGS Room #: 311-P [facility] IN [facility]#: [id number] Admission: 03/29/17 Attend Phys: Demarcus Weinberg MD Discharge: Date of : 50 Report #: [id number] occasionally either unclear or evasive regarding certain medical facts and is otherwise fairly lucid. VITAL SIGNS: Height is reported to be 5 feet 4 inches, weight 160 pounds. The patient is afebrile, heart rate 70 and regular, blood pressure 170/90. SKIN: Warm and moist without abnormality. HEENT: PERRL. NECK: Supple, without masses, tenderness or thyromegaly. CHEST: Shows scattered rhonchi and coarse breath sounds throughout. HEART: Regular rhythm without murmurs, rubs or gallops. ABDOMEN: Benign, without masses, tenderness, organomegaly. Bowel sounds active. EXTREMITIES: Show no edema, cyanosis or clubbing. Peripheral pulses 2+ and equal bilaterally. NEUROLOGIC: Grossly intact, although there is questionable problem with mental status as mentioned above. ASSESSMENT: 1. Diabetes mellitus, aggravated by high dose corticosteroids. 2. Insulin resistance and hyperinsulinemia due to exogenous obesity, aggravated by high dose corticosteroids. PLAN: 1. Will evaluate prior control of hemoglobin A1c and fructosamine. 2. Will place the patient on appropriate mild caloric restriction, utilize linagliptin to stimulate endogenous insulin release and readjust insulin as needed for glucose control including use of glargine rather than detemir insulin as it is a true 24-hour basal insulin. The patient is not an appropriate candidate for reinitiation of metformin, although this would be definitely an appropriate therapy once steroids have been tapered and the patient has been discharged home. 3. Will continue to readjust insulin as needed to improve glucose control. Thank you very much for this consultation. I will continue to follow the patient with you in an attempt to improve and stabilize blood sugar. <ELECTRONICALLY SIGNED> By: Leon Vasquez MD 04/07/17 0839 1250 1811 Leon Vasquez MD /nt
--- NOTE | ~2017-03-29 | HC ---
[facility] [place] [address] CONSULTATION Name: LUPE DOSHI Room #: 311-P ADM IN M.R.#: [id number] Admission: 03/29/17 Attend Phys: Demarcus Weinberg MD Discharge: Date of : 50 Report #: [id number] THIS REPORT FOR: //name// CC: Demarcus Dumont DATE OF SERVICE: 04/02/2017 REASON FOR CONSULTATION: Salivary gland pain. HISTORY OF PRESENT ILLNESS: The patient is a 67-year-old female with history of lupus, COPD, diabetes, hypomagnesemia, who has had surgery about a month ago and a couple of weeks afterwards started having pain around her neck and her face and on her cheeks. She got hyperglycemic and has been admitted to the hospital. I have been asked to evaluate her salivary glands. PAST MEDICAL HISTORY: Most significantly for Car[place] spotted fever and lupus. She had been admitted and then transferred, she is now improved and she says that she thinks in the last 24 hours that her cheeks have gotten a little bit better. She was initially unable to open her mouth at all and now she is, and she has been eating things. PAST MEDICAL HISTORY: Otherwise, significant for cavitary lung disease, chronic pain, COPD, diabetes, hypertension. She had recent surgery on her right arm; she says it was from the cancer. ALLERGIES: ALEVE, DOXYCYCLINE. See her MAR for her active, very extensive medication list. PAST SURGICAL HISTORY: Total abdominal hysterectomy, bilateral salpingo-oophorectomy, cardiac catheterization, lung mass, thoracotomy, right breast biopsy, tonsillectomy and adenoidectomy. FAMILY HISTORY: Heart disease, diabetes, GI disorder. SOCIAL HISTORY: She is a former smoker of cigarettes, a pack a day for 20 years. REVIEW OF SYSTEMS: Significant for cheek pain, pain all over. PHYSICAL EXAMINATION: GENERAL: She is a well-developed female in no apparent distress. HEENT: Normocephalic. Pupils are equal. Nose: No active rhinorrhea. Oral cavity, she can open her mouth. She has dry mucous membranes. Evaluation of Kym duct and Stensen duct ____ minimal salivary flow. There is no active purulence. She is tender to palpation in the submandibular glands and in the [address] [address] CONSULTATION Name: JADA ALFORDMIGUELINALUPE HARDY Gagandeep Room #: 311-P ADM IN .R.#: [id number] Admission: 03/29/17 Attend Phys: Demarcus Weinberg MD Discharge: Date of : 50 Report #: [id number] parotid glands bilaterally, but there is no significant edema or inflammation upon palpation. She does not have any fluctuant areas that would suggest salivary gland abscess. Her submandibular calculus is seen on CT scan is probably quite old and she does not have obstruction of this gland. PLAN: She is going to continue IV hydration, IV antibiotic ____ massage and warm packs. Follow up with me as an outpatient. By: 1715 1754 Matt Perla MD /nt
--- NOTE | ~2017-03-29 | HC ---
[facility] [place] [address] CONSULTATION Name: LUPE DOSHI Room #: 311-P ADM IN M.R.#: [id number] Admission: 03/29/17 Attend Phys: Demarcus Weinberg MD Discharge: Date of : 50 Report #: [id number] THIS REPORT FOR: //name// CC: Demarcus Dumont REASON FOR CONSULTATION: Evaluation of possible [place] spotted fever. HISTORY OF PRESENT ILLNESS: The patient was a 67-year-old with underlying history of systemic lupus erythematosus diagnosed in July by Dr. Tien Bentley with hypomagnesemia, chronic pain syndrome, COPD, diabetes. She has been evaluated several times in the past. Most recently was seen in the outpatient clinic with fairly stable chronic disease with COPD, on steroids. My followup visit was for consideration treatment for hepatitis C. Her other issues had not been controlled reasonably well including her pain control. Therefore, this was put on hold. I discussed with her and her about pain management prior to any further treatment. Since then, she continues to have pain issues. She has been followed up in [place] by her primary care physician. Last week, she was having more problems with pain in her hips and a headache. Multiple serologies have been done over the last year for [place] spotted fever. She was placed on IV antibiotic therapy as an outpatient. She could not tell me the dose or the drug. came home the other night and noticed she was markedly worse, difficulty speaking, and was fairly lethargic. She was brought into the emergency room and later transferred to [facility]. There was some concern about narcotic overdose. The patient's today feels that her pillbox, however, was appropriately . No documented fever. She has noted some chills and sweats. No rash. She reports headache and neck pain along with left facial pain and ear pain. Mild odynophagia. No cough or sputum production. No nausea, vomiting or diarrhea. No abdominal pain. Her hips hurt; ankles hurt, right greater than left. No trauma. She has been on 5 mg of prednisone a day. PAST MEDICAL HISTORY: Significant for diagnosis of SLE. She had a right lung biopsy in 2012, which revealed diffuse nodular lymphoid hyperplasia involving the right upper lobe. She is growing Pseudomonas and Aspergillus from her cultures. She had a pseudomonas lung infection that was associated with suspected septic pulmonary emboli from previous central venous catheter. Hepatitis C genotype 1A, restless legs syndrome, asthma, past smoker, diabetes, hypertension, bronchitis, rheumatoid arthritis, degenerative arthritis, cervical spine surgery with fixation, appendectomy, dermatomal zoster, fibromyalgia, peripheral neuropathy, COPD, obstructive sleep apnea, chronic kidney disease, anxiety, right breast biopsies for benign disease. FAMILY HISTORY: Noncontributory. SOCIAL HISTORY: Past smoker, no significant alcohol intake. 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 REVIEW OF SYSTEMS: As noted above with no additions. ALLERGIES: NAPROSYN, DOXYCYCLINE. MEDICATIONS: She was given vancomycin and Zosyn in the emergency room in [place]. Other medications as noted on her OCT, which were reviewed. She is also on outpatient IV antibiotic therapy for this past week. PHYSICAL EXAMINATION: VITAL SIGNS: Afebrile, hemodynamically stable. GENERAL: She was alert and cooperative, at times appeared in extreme discomfort, although would later calm down and be reasonably comfortable, lying in bed. She was able to sit up, but is having some discomfort, seemed like mostly in her neck and her right hip. HEENT: Noted tenderness to the left parotid gland. The parotid duct had clear fluid, mild oral thrush. NECK: 1+ nuchal rigidity. LUNGS: Clear. HEART: Regular, without murmur. ABDOMEN: Soft, nontender, no hepatosplenomegaly or mass. EXTREMITIES: PICC line in the right upper extremity. Right hip was tender, mostly over the greater trochanter. She had reasonable range of motion. Left hip had reasonable range of motion. Ankles mildly tender, no definite synovitis. NEUROLOGIC: Otherwise nonfocal. LABORATORY DATA: In April 2016, [place] spotted fever, EIA was positive with negative IFA IgM and IgG. From 02/02/2017, EIA positive IgG 1:64. On 02/21/2017, IFA less than 1:64 IgG, equivocal IgM. On March 08, IgG 1:64, negative IgM. On March 17, IgG 1:128, equivocal IgM. On March 18, 1:64 IgG, equivocal IgM. CT scan of the head unremarkable yesterday. CT of the neck showed postoperative change for her fusion and a left submandibular gland calculus. Chest x-ray, no acute infiltrates. WBC 11.9, hemoglobin 13.6, platelet count 247,000. Sodium 133, potassium 3.6, bicarbonate 30, creatinine 0.9, glucose 262. Liver function test normal. Urinalysis; 2+ protein, trace ketones, 1+ blood, few bacteria and yeast. Blood cultures are negative to date. Urine culture negative to date. IMPRESSION: A 67-year-old with a diagnosis of autoimmune disease, systemic lupus erythematosus has been labeled as well as rheumatoid arthritis in the past. She has chronic pain syndrome and a lot of fibromyalgia and arthritis symptoms. Her current presentation to me does not fit [place] spotted fever. She has had over the last year 6 serologies checked, all of which have been either equivocal or low level positive. She does have some parotid gland [facility] [address] [place] [address] CONSULTATION Name: LUPE DOSHI Room #: 311-P ADM IN [facility].#: [id number] Admission: 03/29/17 Attend Phys: Demarcus Weinberg MD Discharge: Date of : 50 Report #: [id number] tenderness, but no evidence of purulent drainage. She has oral thrush without evidence of other mucositis. She has underlying hepatitis C, which has not been treated yet. She also has chronic narcotic use. She has also had director long term care corticosteroid, which was tapered down most recently. I am concerned that we are dealing more with narcotic withdrawal and chronic pain as well as arthritis, possibly systemic lupus erythematosus flare. PLAN: I would recommend withholding antibiotic therapy. No indication to treat for [place] spotted fever. We will have rheumatology evaluate and will put her back on hydrocortisone to supplement for now. Would have pain management evaluate. We will obtain inflammatory markers and reassess in next 24 hours. <ELECTRONICALLY SIGNED> By: Robin Shipley MD 04/01/17 0823 1727 1956 Robin Shipley MD /nt
--- NOTE | ~2017-03-29 | HC ---
[facility] [place] [address] CONSULTATION Name: LUPE DOSHI Gagandeep Room #: 311-P ADM IN M.R.#: [id number] Admission: 03/29/17 Attend Phys: Demarcus Weinberg MD Discharge: Date of : 50 Report #: [id number] THIS REPORT FOR: //name// CC: Demarcus Dumont DATE OF SERVICE: 04/06/2017 Readjusting diet and insulin doses including switching to bedtime Glargine, which is a true 24-hour basal insulin. Glucoses significantly low including blood sugars in the 100s yesterday evening. FBS still elevated, but improved at 362. Hemoglobin A1c highly elevated at 11.5%. Utilizing linagliptin to decrease insulin requirement. <ELECTRONICALLY SIGNED> By: Leon Vasquez MD 04/07/17 0839 1158 1300 Leon Vasquez MD /nt
--- NOTE | ~2017-03-29 | EKG ---
[address] [address] ELECTROCARDIOGRAM REPORT Name: LUPE DOSHI Room #: 311-P [facility] IN ..#: [id number] Admission: 03/29/17 Attend Phys: Demarcus Weinberg MD Discharge: Date of : 50 Report #: [id number] THIS REPORT FOR: //name// 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
[~2017-03-29 17:41] MED LIST changes: +ADDERALL 20 MG20 M1 PO; +ALBUTEROL2.5 MG/0.5 INH; +BENAZEPRIL HCL20 MG PO; +CIPRO500 MG PO; +DULCOLAX5 MG PO; +FLAGYL500 MG PO; +HYDROCODONE-CH473 M1 PO; +LANTUS100 UNIT/M SUBQ; +LOPRESSOR25 PO; +MAGNESIUM OXID400 MG PO; +MIDAMOR 5MG TABL5 M1 PO; +OXYCODONE HCL 55 MG PO; +PIPERACIL-TA3.375 G1 IV; +PREDNISONE 10 M10 MG PO; +PREDNISONE 5 MG5 M1 PO; +PREDNISONE10 MG PO; +REQUIP2 MG PO; +SYMBICORT160 MCG/4. INH; +VANCO 1 GR1 GM/250 M IVPB; +VANCOMYCIN100 MG/ML PO
[2017-03-29 20:40] VITALS: BP 159/90
[2017-03-29 22:37] LABS: ABSOLUTE NEUTROPHILS 10.9 thou/uL (1.4-8.2); BASOPHILS 0.6 % (0.0-2.0); EOSINOPHILS 0.2 % (0.0-3.0); HEMATOCRIT 43.4 % (37.0-47.0); HEMOGLOBIN 14.4 gm/dL (12.0-15.0); LYMPHOCYTES 19.3 % (24.0-44.0); MCH 27.5 pg (26.0-34.0); MCHC 33.3 g/dL (28.0-37.0); MCV 82.6 fL (80.0-100.0); MONOCYTES 8.6 % (1.0-8.0); PLATELET COUNT 277 thou/uL (150-400); POLYS 71.3 % (36.0-66.0); RBC 5.25 mil/uL (4.20-5.00); RDW 14.4 % (10.5-14.5); WBC 15.3 thou/uL (4.0-11.0)
[2017-03-29 22:40] LABS: MANUAL DIFF NO
[2017-03-29 22:46] LABS: CALCIUM 10.6 mg/dL (8.5-10.1); CREATININE 1.1 mg/dL (0.6-1.0); POTASSIUM 4.1 mmol/L (3.5-5.1)
[2017-03-29 22:52] LABS: ALBUMIN 3.6 g/dL (3.4-5.0); TOTAL BILIRUBIN 0.9 mg/dL (<0.1-1.0); TOTAL PROTEIN 8.9 g/dL (6.4-8.2)
[2017-03-30 00:15] VITALS: BP 144/83
[2017-03-30 04:35] VITALS: BP 161/76
[2017-03-30 04:57] LABS: URINE BILIRUBIN NEGATIVE (Negative); URINE BLOOD 1+ (Negative); URINE COLOR YELLOW; URINE GLUCOSE-RANDOM* 3+ (Negative); URINE KETONES TRACE (Negative); URINE LEUKOCYTES-REFLEX NEGATIVE (Negative); URINE PROTEIN (DIPSTICK) 2+ (Negative); URINE UROBILINOGEN 0.2 E.U./dl (0.2-1.0)
[2017-03-30 05:26] LABS: CASTS None Seen /LPF (None Seen); SQUAMOUS 4-10 Moderate /LPF (0-3); URINE WBC-REFLEX 0-5 Rare /HPF (0-5)
[2017-03-30 05:27] LABS: CRYSTALS None Seen /LPF (None Seen); URINE RBC 0-2 Rare /HPF (0-2); YEAST-REFLEX Present (None Seen)
[2017-03-30 06:37] LABS: HEMATOCRIT 40.5 % (37.0-47.0); HEMOGLOBIN 13.6 gm/dL (12.0-15.0); MCH 27.7 pg (26.0-34.0); MCHC 33.6 g/dL (28.0-37.0); MCV 82.5 fL (80.0-100.0); RBC 4.91 mil/uL (4.20-5.00); RDW 14.3 % (10.5-14.5); WBC 11.9 thou/uL (4.0-11.0)
[2017-03-30 06:55] LABS: ALBUMIN 3.2 g/dL (3.4-5.0); CALCIUM 10.1 mg/dL (8.5-10.1); CREATININE 0.9 mg/dL (0.6-1.0); POTASSIUM 3.6 mmol/L (3.5-5.1); TOTAL BILIRUBIN 0.8 mg/dL (<0.1-1.0); TOTAL PROTEIN 8.1 g/dL (6.4-8.2)
[2017-03-30 08:00] VITALS: BP 145/89
[2017-03-30] MEDS ORDERED: ATIVAN1 MG PO (09:58)
[2017-03-30] MEDS ORDERED: RESTORIL30 MG PO (10:05)
[2017-03-30 12:53] VITALS: BP 134/71
[2017-03-30 16:00] VITALS: BP 152/92
[2017-03-30 20:00] VITALS: BP 163/81
[2017-03-31 04:00] VITALS: BP 157/76
[2017-03-31 04:49] LABS: HEMATOCRIT 37.1 % (37.0-47.0); HEMOGLOBIN 12.4 gm/dL (12.0-15.0); MCHC 33.5 g/dL (28.0-37.0); MCV 83.5 fL (80.0-100.0); RBC 4.45 mil/uL (4.20-5.00); RDW 14.3 % (10.5-14.5); WBC 10.3 thou/uL (4.0-11.0)
[2017-03-31 04:53] LABS: CALCIUM 9.6 mg/dL (8.5-10.1); CREATININE 0.8 mg/dL (0.6-1.0); POTASSIUM 4.1 mmol/L (3.5-5.1)
[2017-03-31 07:26] VITALS: BP 178/87
[2017-03-31 15:23] VITALS: BP 150/84
[2017-03-31 19:18] VITALS: BP 148/89
[2017-04-01 03:50] VITALS: BP 120/72
[2017-04-01 16:07] VITALS: BP 164/87
[2017-04-01 19:11] LABS: URINE BILIRUBIN NEGATIVE (Negative); URINE BLOOD TRACE (Negative); URINE COLOR YELLOW; URINE GLUCOSE-RANDOM* 3+ (Negative); URINE KETONES NEGATIVE (Negative); URINE LEUKOCYTES-REFLEX NEGATIVE (Negative); URINE PROTEIN (DIPSTICK) NEGATIVE (Negative); URINE UROBILINOGEN 0.2 E.U./dl (0.2-1.0)
[2017-04-01 20:00] VITALS: BP 179/84
[2017-04-02 04:00] VITALS: BP 154/76
[2017-04-02 08:05] VITALS: BP 176/90
[2017-04-02 15:57] VITALS: BP 157/96
[2017-04-02 19:40] VITALS: BP 164/89
[2017-04-03 03:15] VITALS: BP 190/97
[2017-04-03 07:30] VITALS: BP 169/90
[2017-04-03 14:40] VITALS: BP 149/80
[2017-04-03 20:00] VITALS: BP 147/98
[2017-04-04 04:00] VITALS: BP 169/99
[2017-04-04 07:44] VITALS: BP 155/74
[2017-04-04 10:04] LABS: CALCIUM 9.2 mg/dL (8.5-10.1); CREATININE 1.1 mg/dL (0.6-1.0); MAGNESIUM 1.3 mg/dL (1.8-2.4); POTASSIUM 4.8 mmol/L (3.5-5.1)
[2017-04-04 16:10] VITALS: BP 149/87
[2017-04-04 19:45] VITALS: BP 140/68
[2017-04-05 05:07] VITALS: BP 109/51
[2017-04-05 09:35] VITALS: BP 172/99
[2017-04-05 17:50] VITALS: BP 138/76
[2017-04-05 19:39] VITALS: BP 136/73
[2017-04-06 04:28] VITALS: BP 132/83
[2017-04-06 05:43] LABS: GLYCOHEMOGLOBIN (HGB A1C) 11.5 % (4.8-5.6)
[2017-04-06 06:08] LABS: C-PEPTIDE 3.9 ng/mL (1.1-4.4)
[2017-04-06 08:00] VITALS: BP 128/65
[2017-04-06 16:00] VITALS: BP 151/72
[2017-04-06 19:10] VITALS: BP 150/77
[2017-04-07 04:26] VITALS: BP 113/58
[2017-04-07 09:01] VITALS: BP 139/82
[2017-04-07] MEDS ORDERED: DALIRESP500 MCG PO (10:42)
[2017-04-07] MEDS ORDERED: OXYBUTYNIN 5 MG5 M1 PO (11:02)
[2017-04-07] MEDS ORDERED: CLOTRIMAZOLE10 MG PO (11:02)
[2017-04-07] MEDS ORDERED: OXYCODONE HCL30 MG PO (11:02)
[2017-04-07] MEDS ORDERED: TRADJENTA5 MG PO (11:02)
[2017-04-07 11:15] VITALS: BP 139/82
[2017-04-07] MEDS ORDERED: PREDNISONE 10 M10 MG PO (11:30)
== END 2017-04-07 12:07 | disposition swing bed (61) | DRG 545 ==
LOC: 2N 17:41 → 3N 19:11
PROVIDERS: Hospitalist; Internal Medicine; Internal Medicine Endocrinology, Diabetes & Metabolism; Nurse Practitioner Family
DX: M32.9 Systemic lupus erythematosus, unspecified (principal); G92 Toxic encephalopathy; F11.20 Opioid dependence, uncomplicated; E11.65 Type 2 diabetes mellitus with hyperglycemia; G89.4 Chronic pain syndrome; J44.9 Chronic obstructive pulmonary disease, unspecified; G25.81 Restless legs syndrome; K11.5 Sialolithiasis; K11.20 Sialoadenitis, unspecified; T38.0X5A Adverse effect of glucocorticoids and synthetic analogues, initial encounter; E11.42 Type 2 diabetes mellitus with diabetic polyneuropathy; M06.9 Rheumatoid arthritis, unspecified; G47.33 Obstructive sleep apnea (adult) (pediatric); E11.22 Type 2 diabetes mellitus with diabetic chronic kidney disease; F41.9 Anxiety disorder, unspecified; I12.9 Hypertensive chronic kidney disease with stage 1 through stage 4 chronic kidney disease, or unspecified chronic kidney disease; E16.1 Other hypoglycemia; E66.09 Other obesity due to excess calories; B02.9 Zoster without complications; N18.2 Chronic kidney disease, stage 2 (mild); F32.9 Major depressive disorder, single episode, unspecified; D72.829 Elevated white blood cell count, unspecified; E83.42 Hypomagnesemia; Z90.49 Acquired absence of other specified parts of digestive tract; Z87.891 Personal history of nicotine dependence; Z88.1 Allergy status to other antibiotic agents; Z88.8 Allergy status to other drugs, medicaments and biological substances; Z90.722 Acquired absence of ovaries, bilateral; Z83.3 Family history of diabetes mellitus; Z68.29 Body mass index [BMI] 29.0-29.9, adult; Z90.710 Acquired absence of both cervix and uterus; Z91.19 Patient's noncompliance with other medical treatment and regimen; Z79.899 Other long term (current) drug therapy
CPT/HCPCS: 10096

== ENCOUNTER 2018-10-24 19:27 | Inpatient (IN) | payer OTHER ==
[~2018-10-24] VITALS: Ht 165.1 cm; Wt 81.4 kg
--- NOTE | ~2018-10-24 | HC ---
[facility] [place] [address] CONSULTATION Name: LUPE DOSHI Room #: 356-P ADM IN M.R.#: [id number] Admission: 10/24/18 ������������������ Attend Phys: Benjamin Jacob MD Discharge: ������������������ Date of : 50 Report #: [id number] THIS REPORT FOR: //name// CC: Benjamin Dumont She is in room 244 of the ICU. HISTORY OF PRESENT ILLNESS: This 68-year-old white female with longstanding history of chronic obstructive pulmonary disease is seen in Oncology consultation because of abnormality detected on her L1 vertebral body on recent CT scan. She has recently had worsening shortness of breath and was transferred from [facility] and has undergone a bronchoscopy at [facility] with Dr. Osullivan. She is a longstanding patient of Rober Hernández. She unfortunately is less than ideal historian. She did have a previous right breast biopsy performed in 2003 and reports that she did not receive any treatment following that excision and did not believe that it was cancerous. I am trying to obtain those records from [facility] where this was performed. She also had portion of her lung removed here at [facility]. This again was stated to be radiologic abnormality, but no evidence of malignancy was found and was merely inflammatory/scarred area. 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 She did not mention this event. He subsequently tried to review her records and obtained MRI. 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 She again did not undergo surgery or obtain any further evaluation or followup. Her major complaints have been related to her ongoing dyspnea and bronchospasm. PAST MEDICAL HISTORY: Significant for medically managed hypertension. She has diabetes and obesity. She has renal insufficiency, chronic heart and lung disease. SOCIAL HISTORY: She is a heavy prior smoker, though stopped a year ago. She is a nondrinker. FAMILY HISTORY: Not contributory. REVIEW OF SYSTEMS: Negative for any new or recent masses or pain. She denies hemoptysis. She is less short of breath now after the recent bronchoscopy and [facility] [address] [place] [address] CONSULTATION Name: LUPE DOSHI Room #: 356-P ADM IN [facility]#: [id number] Admission: 10/24/18 ������������������ Attend Phys: Benjamin Jacob MD Discharge: ������������������ Date of : 50 Report #: [id number] is receiving antibiotics inhalation therapy. PHYSICAL EXAMINATION: GENERAL: Shows alert, elderly female. Family was present. HEENT: Normocephalic. Her mouth is clear. NECK: Supple. CHEST: Shows wheezing. BREASTS: Reveal previous outer quadrant incision to be well healed. SKIN: Normal turgor. NEUROLOGIC: No focal localized signs. PSYCHIATRIC: Not agitated or confused. EXTREMITIES: Show no edema. LABORATORY DATA: Again, her CAT scan shows sclerotic/blastic lesion involving L1. She also has right hilar mass on chest CT scan. ASSESSMENT: Question metastatic malignancy. PLAN: With blastic bone changes, leading contender would be breast cancer, though she did not receive any treatment after the "lumpectomy" and I am trying to obtain her pathology reports and surgical operative note from [facility]. The lung excision here at [facility] was negative for malignancy. I am still trying to track down the sequential squamous cell cancer history that I found in the [facility] records, but have no supporting pathology reports and will continue to request these. I have ordered laboratory studies and if tumor markers, alkaline phosphatase, etc., are abnormal the more suspicious for malignant lesion to bone is opposed to Paget's. Other possibility would be needle biopsy for tissue diagnosis. Thanks for allowing me to see her in consultation and asking us to participate in her care. ��������������������������������������������� ���������������������������������������� By: ��������������������������������������������� 1543 0920 Riri Chaves MD /nt
[~2018-10-24 19:27] MED LIST changes: +ALBUTEROL2.5 MG/31 INH; +ATIVAN0.5 MG PO; +BACTRIM DS TAB1 EACH PO; +CLOTRIMAZOLE10 MG DISSOLVE; +CLOTRIMAZOLE10 MG PO; +DEXTROAMP-AMPHE30 MG PO; +IPRATROPIU0.2 MG/1 M INH; +LANTUS SUBQ; +MAGNESIUM500 MG PO; +NORCO 10-325 T1 EACH PO; +NORVASC10 MG PO; +OXYBUTYNIN 5 MG5 M1 PO; +OXYBUTYNIN 5 MG5 M2 PO; +OXYCODONE HCL30 MG PO; +PIOGLITAZONE15 MG; +PROAIR HFA8.5 GM PO; +RESTORIL15 MG PO; +RESTORIL30 MG PO; +ROPINIROLE HCL2 MG PO; +TRADJENTA5 MG PO
[2018-10-24 21:39] VITALS: BP 158/82
[2018-10-24] MEDS ORDERED: LANTUS100 UNIT/M SUBQ (22:40)
[2018-10-24] MEDS ORDERED: NORCO 10-325 T1 EACH PO (22:48)
--- NOTE | 2018-10-25 02:12 | NUR ---
PT ORIENTATED TO ROOM AND CALL LIGHT PT GIVEN MORPHINE FOR PAIN PT USED CALLLIGHT EFFECTIVELY NO ISSUES OVERNIGHT.
[2018-10-25 03:50] VITALS: BP 133/67
[2018-10-25 05:54] LABS: HEMATOCRIT 32.5 % (37.0-47.0); HEMOGLOBIN 10.5 gm/dL (12.0-15.0); MCH 25.7 pg (26.0-34.0); MCHC 32.2 g/dL (28.0-37.0); MCV 79.6 fL (80.0-100.0); RBC 4.09 mil/uL (4.20-5.00); RDW 16.8 % (10.5-14.5); WBC 5.3 thou/uL (4.0-11.0)
[2018-10-25 06:03] LABS: CALCIUM 9.5 mg/dL (8.5-10.1); CREATININE 1.2 mg/dL (0.6-1.0)
[2018-10-25 06:04] LABS: POTASSIUM 5.3 mmol/L (3.5-5.1)
[2018-10-25 07:22] VITALS: BP 161/97
[2018-10-25] MEDS ORDERED: ATIVAN0.5 MG PO (11:39)
[2018-10-25] MEDS ORDERED: PREDNISONE 5 MG5 M1 PO (11:41)
[2018-10-25] MEDS ORDERED: GLUCOPHAGE1000 MG PO (11:42)
[2018-10-25] MEDS ORDERED: NORVASC10 MG PO (11:43)
[2018-10-25] MEDS ORDERED: LOPRESSOR25 PO (11:43)
[2018-10-25] MEDS ORDERED: SEROQUEL 25 MG25 M1 PO (11:45)
[2018-10-25] MEDS ORDERED: LASIX 20 MG TAB20 MG PO (11:45)
[2018-10-25] MEDS ORDERED: WELLBUTRIN XL150 MG PO (11:47)
[2018-10-25] MEDS ORDERED: SPIRIVA RESPIMAT4 G1 PO (11:47)
[2018-10-25 13:47] VITALS: BP 126/69
--- NOTE | 2018-10-25 13:53 | NUR ---
PT ALERT AND ORIENTED TIMES FOUR. C/O PAIN PRN PAIN MEDICATIONS GIVEN WITH SOME RELEIF. PT 97%4L. PT TOLERATES MEDS AND MEALS. PT UP TO BSC WITH STANDBY ASSIST. FAMILY AT BEDSIDE. WILL CONTINUE TO MONITOR.
[2018-10-25 20:00] VITALS: BP 141/73
[2018-10-26] VITALS (28 sets, daily range): BP systolic 103–165; BP diastolic 40–86
[2018-10-26 00:49] LABS: URINE BILIRUBIN NEGATIVE (Negative); URINE BLOOD NEGATIVE (Negative); URINE CLARITY CLEAR; URINE COLOR YELLOW; URINE GLUCOSE-RANDOM* 3+ (Negative); URINE KETONES NEGATIVE (Negative); URINE LEUKOCYTES-REFLEX NEGATIVE (Negative); URINE NITRITE-REFLEX NEGATIVE (Negative); URINE PROTEIN (DIPSTICK) NEGATIVE (Negative); URINE SPECIFIC GRAVITY 1.015 (1.005-1.035); URINE UROBILINOGEN 0.2 E.U./dl (0.2-1.0)
[2018-10-26 05:16] LABS: HEMATOCRIT 33.2 % (37.0-47.0); HEMOGLOBIN 10.4 gm/dL (12.0-15.0); MCH 25.1 pg (26.0-34.0); MCHC 31.3 g/dL (28.0-37.0); MCV 80.2 fL (80.0-100.0); RBC 4.14 mil/uL (4.20-5.00); RDW 16.6 % (10.5-14.5); WBC 10.6 thou/uL (4.0-11.0)
[2018-10-26 05:35] LABS: CALCIUM 9.7 mg/dL (8.5-10.1); CREATININE 1.2 mg/dL (0.6-1.0)
[2018-10-26 05:45] LABS: POTASSIUM 5.5 mmol/L (3.5-5.1)
--- NOTE | 2018-10-26 08:04 | NUR ---
ASSESSMENT: CM REVIEWED CHART AND MET WITH PATIENT AT THE BEDSIDE. PT WAS ADMITTED WITH COPD EXACERBATION AND RIGHT LUNG MASS. PT REPORTS SHE LIVES AT HOME WITH HER ON A FARM. PT REPORTS HER IS GONE FOR WORK SOMETIMES A MONTH AT A TIME BUT HAS SUPPORTIVE FAMILY. PT REPORTS SHE WAS IN SERVICES WITH [facility] ([phone]) PRIOR TO ADMISSION BUT REVOKED IT TO COME IN THE HOSPITAL. CM CONTACTED [facility] AND FAXED UPDATED CLINICAL TO THEIR FAX [phone]. PT REPORTS SHE PLANS ON RETURNING BACK HOME WITH [facility] AT DISCHARGE. PT REPORTS BEING ON 2-3L OF OXYGEN AT [facility] AND REPORTS ALSO HAVE A NEBULIZER. PT STATES SHE WALKS INDEPENDENTLY BUT DOES HAVE A CANE AND WALKER AT HOME. PT REPORTS BEING INDEPENDENT WITH ADLS. CM WILL CONTINUE TO FOLLOW TO ASSIST NEEDED.
--- NOTE | 2018-10-26 08:30 | NUR ---
PROGRESS PT A/O X4 DENIES PAIN, UP WITH SBA VOIDING QS, LUNGS COARSE AND DIMINISHED. O2 AT 4 LITERS VIA NC, RT TX'S CONTINUE PLAN ON BRONCHOSCOPY TODAY CONSENT SIGNED AND ON CHART.
[2018-10-26] MEDS ORDERED: WELLBUTRIN XL150 MG PO (10:35)
[2018-10-26] MEDS ORDERED: MIDAMOR 5MG TABL5 M1 PO (10:35)
--- NOTE | 2018-10-26 13:48 | EKG ---
[address] [address] ELECTROCARDIOGRAM REPORT Name: LUPE DOSHI Room #: 451- ADM IN .R.#: [id number] ������������������ Admission: 10/24/18 ������������������ Attend Phys: Benjamin Jacob MD Discharge: ������������������ Date of : 50 Report #: [id number] ����������������������������������������������������������������� [id number] THIS REPORT FOR: //name// [facility] Test Date: 2018-10-26 Test Time: 12:47:14 Pat Name: LUPE AYALA Department: Room: 451 Gender: F [employer] Specialist: nga : 1950 Requested By: Oralia Zhao Order Number: [id number] MD: Thong Ferraro Measurements Intervals [place] Rate: 62 P: 27 VT: 146 QRS: 68 QRSD: 93 T: 63 QT: 392 QTc: 398 Interpretive Statements Sinus rhythm Baseline wander in lead(s) V2 Compared to ECG 06/27/2017 17:53:21 Left ventricular hypertrophy no longer present Electronically Signed On 10-26-2018 13:48:45 ANIMAL TRAINER by Thong Ferraro [email or web address] ��������������������������������������������� <ELECTRONICALLY SIGNED> ���������������������������������������� By: Thong Ferraro MD ��������������������������������������������� 10/26/18 1348 1247 1247 Thong Ferraro MD /EPI
--- NOTE | 2018-10-26 16:59 | NUR ---
PT HAD GONE FOR A BRONCHOSCOPY THIS AFTERNOON AND WAS TRANSFERED TO ROOM 244 FOR CONTINUED MONITORING.
[2018-10-26 18:43] LABS: BE(vivo) -5.5 mmol/L (-2 to +3); HCO3 24.9 mmol/L (22.0-26.0); PO2 98.4 mmHg (80.0-100.0); sO2 94.8 % (92.0-98.0)
[2018-10-26 19:08] LABS: PCO2 78.2 mmHg (35.0-45.0)
--- NOTE | 2018-10-26 19:31 | NUR ---
PATIENT ADMITTED FROM RECOVERY DEPARTMENT, ALERT AND ANXIOUS. PLACED ON BIPAP. ON LIGHT SEDATION. MOORE PATENT AND DRAINING, SINUS BRADYCARDIA ON OCEAN EXPORT AGENT. FAMILY UPDATED ON THE PLAN OF CARE. NO SIGNS OF ACUTE DISTRESS NOTED AT THIS TIME. WILL CONTINUE TO MONITOR.
[2018-10-26 21:58] LABS: BE(vivo) -4.2 mmol/L (-2 to +3); PCO2 59.6 mmHg (35.0-45.0); PO2 125.4 mmHg (80.0-100.0); sO2 97.8 % (92.0-98.0)
[2018-10-26 21:59] LABS: pH 7.222 (7.360-7.450)
[2018-10-27] VITALS (50 sets, daily range): BP systolic 90–169; BP diastolic 40–103
[2018-10-27 01:12] LABS: BE(vivo) -0.5 mmol/L (-2 to +3); PCO2 58.2 mmHg (35.0-45.0); PO2 78.9 mmHg (80.0-100.0); pH 7.284 (7.360-7.450)
[2018-10-27 05:31] LABS: BE(vivo) -0.1 mmol/L (-2 to +3); HCO3 27.3 mmol/L (22.0-26.0); PCO2 58.5 mmHg (35.0-45.0); PO2 220.8 mmHg (80.0-100.0); pH 7.287 (7.360-7.450); sO2 99.3 % (92.0-98.0)
[2018-10-27 06:27] LABS: HEMATOCRIT 32.1 % (37.0-47.0); HEMOGLOBIN 10.2 gm/dL (12.0-15.0); MCH 25.7 pg (26.0-34.0); MCHC 31.7 g/dL (28.0-37.0); MCV 80.9 fL (80.0-100.0); RBC 3.96 mil/uL (4.20-5.00); RDW 16.8 % (10.5-14.5); WBC 14.4 thou/uL (4.0-11.0)
[2018-10-27 06:36] LABS: CALCIUM 8.9 mg/dL (8.5-10.1); CREATININE 1.3 mg/dL (0.6-1.0)
--- NOTE | 2018-10-27 07:22 | NUR ---
PATIENT TRANSFERRED TO ICU PRIOR TO OT EVALUATION. WILL AWAIT NEW OT ORDERS ONCE PATIENT IS APPROPRIATE.
--- NOTE | 2018-10-27 07:45 | NUR ---
ASSUMED CARE OF PT AT 1900 ON 10/26/18. PT ON BIPAP AND ON PRECEDEX GTT. PT'S HR IN 40s, BP STABLE. PT AROUSABLE, BUT EXTREMELY DROWSY, WHILE SEDATED. WHEN SEDATION LOWERED, PT BECAME AGITATED. THIS MORNING, PT'S HR LOWERED TO LOW 40s. PRECEDEX GTT TITRATED DOWN SLOWLY, HR DID NOT IMPROVE. BY 0600, PT ALERT AND FOLLOWING COMMANDS. PRECEDEX GTT OFF. PT WANTED BIPAP MASK OFF, AND PT WAS SWITCHED TO 3L O2 PER NC. PT TOLERATING WELL SO FAR. ASSESSMENTS AND VITALS DOCUMENTED. WILL CONTINUE TO MONITOR.
--- NOTE | 2018-10-27 08:18 | NUR ---
Pt TRANSFERRED TO ICU LAST NIGHT. WILL NEED NEW PT ORDERS TO RESUME THERAPY SERVICES D/T TRANSFER TO HIGHER LEVEL OF CARE.
[2018-10-27 08:52] LABS: BE(vivo) 0.1 mmol/L (-2 to +3); HCO3 26.6 mmol/L (22.0-26.0); PCO2 52.4 mmHg (35.0-45.0); PO2 70.6 mmHg (80.0-100.0); sO2 92.8 % (92.0-98.0)
[2018-10-27 08:53] LABS: pH 7.324 (7.360-7.450)
--- NOTE | 2018-10-27 12:17 | NUR ---
CONSULTED TO PLACE A PICC FOR A PATIENT IN ICU. ORDER AND CONSENT NOTED. THE PROCEDURE WELL BENIFITS AND RISKS OF DVT AND INFECTION DISCUSSED AND SHE VERBALIZED UNDERSTANDING. THE RIGHT UPPER ARM BASILIC WAS WIDLEY PATENT. A #5F TRIPLE LUMEN POWER PICC WAS PLACED PER HOSPITAL POLICY AFTER A BEDSIDE TIMEOUT WAS COMPLETE. LINE WAS TRIMMED TO 39CM AND ADVANCED WITHOUT DIFFICULTY. A STAT CHEST XRAY WAS ORDERED FOR CONFIRMATION AND LINE SECURED. LINE NOTED PER RADIOLOGIST TO BE IN GOOD POSITION. LINE RELEASED FOR USE
--- NOTE | 2018-10-27 16:32 | NUR ---
NOTED TO BE QUITE ANXIOUS THIS AFTERNOON. PRN LORAZEPAM ADMINISTERED BUT IT WAS NOT EFFECTIVE. PATIENT STARTED COMPLAINING THAT SHE CANNOT BREATH. SHE FELT IF SHE WILL PASS OUT. RT CALLED FOR BREATHING TREATMENT AND SHE WAS PLACED IN A BIPAP. SHE IS TOLERATING WELL AT THIS TIME. SATURATION IS ABOVE 96%. EDUCATED PATIENT ON ENERGY CONSERVING METHODS SUCH SPEAKING SLOWLY AND TRYING NOT TO OVER EXERT HERSELF. FAMILY HERE TO VISIT THROUGH THE DAY. WILL CONT WITH PLAN OF CARE.
[2018-10-28] VITALS (22 sets, daily range): BP systolic 96–158; BP diastolic 40–87
[2018-10-28 05:53] LABS: HEMATOCRIT 30.8 % (37.0-47.0); HEMOGLOBIN 9.7 gm/dL (12.0-15.0); MCH 25.5 pg (26.0-34.0); MCHC 31.5 g/dL (28.0-37.0); MCV 80.8 fL (80.0-100.0); RBC 3.81 mil/uL (4.20-5.00); RDW 16.6 % (10.5-14.5); WBC 10.8 thou/uL (4.0-11.0)
[2018-10-28 06:04] LABS: CALCIUM 9.1 mg/dL (8.5-10.1); CREATININE 1.1 mg/dL (0.6-1.0); MAGNESIUM 2.1 mg/dL (1.8-2.4)
[2018-10-28 06:13] LABS: POTASSIUM 6.1 mmol/L (3.5-5.1)
--- NOTE | 2018-10-28 06:28 | NUR ---
PT AXO4. ON 4L NC. SOA WITH ACTIVITY. SR-SB, BP STABLE. AFEBRILE. VSS. C/O PAIN, MEDICATED FOR PAIN. ADEQUATE INTAKE AND OUTPUT. NO COMPLAINS PRESENTLY. PT SLOWLY PROGRESSING TOWARDS GOALS. WILL CONTINUE TO MONITOR.
[2018-10-28 10:07] LABS: ANTI-DNA SCREEN 1 IU/mL (0-9); ANTI-RNP <0.2 AI (0.0-0.9)
--- NOTE | 2018-10-28 13:12 | PATH ---
[facility] [address] [place] [address] PATHOLOGY RPT PROCEDURE Name: LUPE HENSNO Room #: 244-P ADM IN M.R.#: [id number] ������������������ Admission: 10/24/18 ������������������ Date of : 50 Discharge: Report #: [id number] Path Case #: [id number] [facility] Accession Number: [id number] . 01 Material submitted: . RLL BRONCH BIOPSY . 01 Clinical history: . COPD exacerbation, right lung mass . 02 Diagnosis: Lung, right lower lobe, bronchial biopsy: - Benign bronchial tissue with squamous metaplasia and moderate dense chronic inflammation along with reactive atypia. - No definite malignant epithelial cells present. (IUV:naila; 10/27/2018) QMS/10/27/2018 . 02 Electronically signed: . Kaleigh Aranda MD, Pathologist NPI- [id number] . 01 Gross description: . Received in formalin labeled "Lupe Henson, RLL biopsy," are multiple fragments of needle cores of alejandro soft tissue measuring 1.0 x 0.2 x 0.1 cm in aggregate dimensions. The specimen is filtered and submitted entirely in cassette A1. (TSD; 10/26/2018) TOB/TOB . 02 Pathologist provided ICD-10: J98.4 . 02 CPT . [id number] Specimen Comment: A courtesy copy of this report has been sent to Specimen Comment: [phone], , , . Specimen Comment: Report sent to ,DR COOL,DR VERA / DR SHIPMAN Specimen Comment: A duplicate report has been generated due to demographic updates. Performed at: [address] [id number] MD Jaden Wise MD Phone: [phone] Performed at: [address] [id number] [address] [address] PATHOLOGY RPT PROCEDURE Name: LUPE HENSON Room #: 244-P [place] IN M.R.#: [id number] ������������������ Admission: 10/24/18 ������������������ Date of : 50 Discharge: Report #: [id number] Path Case #: [id number] MD Kaleigh Aranda MD Phone: [phone]
[2018-10-28 15:06] LABS: CA 27.29 21.9 U/mL (0.0-38.6)
--- NOTE | 2018-10-28 16:03 | NUR ---
PT TRANSFERRED TO ICU 10/26/18 POST BRONCH AND WILL REMAIN IN ICU TODAY. NO W/E DC PLANNED. PT IS FROM HOME WITH [facility], REVOKED FOR ADMSSION AND PT PLANS TO RESUME HOSPICE SERVICES AT [place].
[2018-10-29] VITALS (7 sets, daily range): BP systolic 118–138; BP diastolic 54–88
[2018-10-29 05:12] LABS: BE(vivo) 2.7 mmol/L (-2 to +3); PCO2 60.2 mmHg (35.0-45.0); sO2 76.1 % (92.0-98.0)
[2018-10-29 05:14] LABS: PO2 45.1 mmHg (80.0-100.0); pH 7.316 (7.360-7.450)
[2018-10-29 06:41] LABS: HEMATOCRIT 30.3 % (37.0-47.0); HEMOGLOBIN 9.8 gm/dL (12.0-15.0); MCH 25.7 pg (26.0-34.0); MCHC 32.2 g/dL (28.0-37.0); RBC 3.79 mil/uL (4.20-5.00); RDW 16.5 % (10.5-14.5); WBC 9.3 thou/uL (4.0-11.0)
[2018-10-29 06:58] LABS: CALCIUM 8.9 mg/dL (8.5-10.1); CREATININE 1.2 mg/dL (0.6-1.0); POTASSIUM 5.7 mmol/L (3.5-5.1)
--- NOTE | 2018-10-29 07:09 | NUR ---
PT TRANSFERED TO ROOM 356 DURING SHIFT CHANGE, REPORT CALLED TO JIM SWANSON. PT WITH CRITICAL ABG, DR BOWDEN NOTIFIED BEFORE TRANSFER AND IS OK WITH PT TRANSFERING TO CCT, PT ALERT AND ORIENTED DURING TRANSFER, ON 5L O2. ALL PERSONAL BELONGINGS SENT WITH PT.
--- NOTE | 2018-10-29 18:48 | NUR ---
ASSUMED CARE OF PT AT SHIFT CHANGE. ASSESSMENTS CHARTED. MEDS GIVEN PER OCT. PT ALERT AND ORIENTED, VSS, C/O PAIN- MANAGED WITH PO AND IV PAIN MEDS. NO S/SX OF CARDIAC OR RESP DISTRESS NOTED. O2 SATS WNL ON 4L O2. PT SOB WITH EXERTION, RESOLVED WITH REST. DENIES CHEST PAIN, UP WITH 1 ASSIST, TOLERATES WELL. MOORE DC'D PER PHYSICIAN ORDER, PT URINE OUTPUT ADEQUATE. PT APPETITE ADEQUATE, DENIES N/V. DENIES CONCERNS AT THIS TIME. WILL CONTINUE TO MONITOR AND FOLLOW POC.
[2018-10-30 04:09] VITALS: BP 150/85
--- NOTE | 2018-10-30 04:39 | NUR ---
ASSUMED PT CARE AROUND 1900. A&OX4. C/O CHRONIC BACK PAIN. PT SLEPT MOST OF THE NIGHT. RESP EVEN AND UNLABORED. O2 SATS STABLE ON 4LNC. REFUSED BIPAP, PER RT. UP TO BSC TO VOID. VSS. SR, SB ON TELE. FALL PRECAUTIONS IN PLACE. PROGRESSING SLOWLY TOWARD POC GOALS. WILL CONTINUE TO MONITOR FURTHER.
[2018-10-30 06:37] LABS: HEMATOCRIT 29.4 % (37.0-47.0); HEMOGLOBIN 9.4 gm/dL (12.0-15.0); MCH 25.6 pg (26.0-34.0); MCHC 32.1 g/dL (28.0-37.0); MCV 79.5 fL (80.0-100.0); RBC 3.69 mil/uL (4.20-5.00); RDW 16.5 % (10.5-14.5)
[2018-10-30 06:47] LABS: CALCIUM 8.7 mg/dL (8.5-10.1); CREATININE 1.2 mg/dL (0.6-1.0); MAGNESIUM 1.8 mg/dL (1.8-2.4)
[2018-10-30 07:32] VITALS: BP 176/77
[2018-10-30 08:00] VITALS: BP 154/74
[2018-10-30 11:46] VITALS: BP 143/89
[2018-10-30 15:10] LABS: ADENOVIRUS Negative (Negative); INFLUENZA A Negative (Negative); INFLUENZA B Negative (Negative); METAPNEUMOVIRUS Negative (Negative); PARAINFLUENZA 1 Negative (Negative); PARAINFLUENZA 2 Negative (Negative); PARAINFLUENZA 3 Negative (Negative); RHINOVIRUS Negative (Negative); RSV A Negative (Negative); RSV B Positive (Negative)
[2018-10-30 16:23] VITALS: BP 156/70
--- NOTE | 2018-10-30 18:09 | NUR ---
ASSUMED PATIENT CARE AT 0700. A/O X4, ANXIOUS. SOB WITH EXERTION. C/O BACK PAIN. STB TO BSC. SLOWLY TOWARDS POC GOALS.
[2018-10-30 20:27] VITALS: BP 150/64
[2018-10-31 05:14] VITALS: BP 161/73
--- NOTE | 2018-10-31 06:29 | NUR ---
PT MAKING SLOW PROGRESS TOWARDS GOALS. PT LUNGS WHEEZING THROUGHOUT AND COARSE IN THE BASES. MORHPHINE GIVEN INITIALLY FOR PAIN AND SOA PT WAS MILDY TACHYPNEIC. PT DID STATE THAT THE DOSE HELPED HER RELAX. O2 AT 4L PER NC. PT WEARING BIPAP OVERNIGHT.
[2018-10-31 06:51] LABS: HEMATOCRIT 30.8 % (37.0-47.0); HEMOGLOBIN 9.8 gm/dL (12.0-15.0); MCH 25.5 pg (26.0-34.0); MCHC 31.9 g/dL (28.0-37.0); MCV 79.9 fL (80.0-100.0); RBC 3.86 mil/uL (4.20-5.00); RDW 16.4 % (10.5-14.5); WBC 9.3 thou/uL (4.0-11.0)
[2018-10-31 06:55] LABS: MAGNESIUM 1.8 mg/dL (1.8-2.4); POTASSIUM 5.2 mmol/L (3.5-5.1)
[2018-10-31 08:36] VITALS: BP 129/55
[2018-10-31 11:11] LABS: ANTI-DNA SCREEN 1 IU/mL (0-9); ANTI-RNP <0.2 AI (0.0-0.9)
[2018-10-31 11:44] VITALS: BP 132/60
[2018-10-31 12:07] LABS: CEA 2.7 ng/mL (0.0-4.7)
--- NOTE | 2018-10-31 15:44 | NUR ---
SW reviewed chart and spoke with nursing and attending physician. Pt was transferred to from ICU. Pt is not yet medically stable for discharge home. Plan is for pt to discharge home and resume hospice with [facility] at time of discharge. SW is following to assist as needed with discharge planning.
[2018-10-31 16:49] VITALS: BP 139/63
--- NOTE | 2018-10-31 17:55 | NUR ---
ASSUMED PATIENT CARE AT 0700. ANXIOUS, CRYING COULDN'T BREATH. ON 4L/NC SAT 94%. GENERLIZED TERRACE EDEMA, VSS. STB USE BSC. SLOWLY TOWARDS POC GOALS,
[2018-10-31 19:55] VITALS: BP 143/56
[2018-11-01 04:20] VITALS: BP 139/58
--- NOTE | 2018-11-01 06:27 | NUR ---
PT MAKING SLOW PROGRESS TOWARDS GOALS. LUNGS DIMINISHED AND WHEEZING THROUGHOUT. USED BIPAP OVERNIGHT FROM APPROXIMATELY 2300 TO 0300. NO SIGNIFICANT SOA EPISODES OBSERVED OR REPORTED BY PT.
[2018-11-01 08:05] VITALS: BP 158/73
[2018-11-01 11:45] VITALS: BP 150/66
--- NOTE | 2018-11-01 13:35 | NUR ---
Nutrition: pt admitted with SOA and seen for LOS. PMH: COPD, DM, HTN, lupus, partial Right pneumonectomy. Vertebral mass. Was on hospice prior to admit and will resume at D/C. Pt reports increased length of time required for her to chew/swallow but manages to eat most of meals. Prefers softer foods but denies need for modified diet. Knows how to order meals. Likes to have hs snack, agreed to glucerna at dinner and will save for snack. BG 187-271. On solumedrol, carb controlled diet. No significant weight changes. Low risk.
--- NOTE | 2018-11-01 13:40 | NUR ---
SW reviewed chart and spoke with nursing and attending physician. Awaiting pulmonary input at this time. Plan is for pt to discharge home and resume hospice services with [facility]. LUNA spoke with intake and faxed clinical updates for review. LUNA is following to assist as needed with discharge planning. [facility]--
--- NOTE | 2018-11-01 16:16 | NUR ---
ASSUMED PATIENT CARE AT 0700. PLEASANT AND CRYING. SOB WITH EXERTION. PAIN MEDS GIVEN NEEDS. VSS, AFEBRILE. SLOWLY TOWARDS POC GOALS.
[2018-11-01 16:29] VITALS: BP 143/70
[2018-11-01 20:30] VITALS: BP 162/62
[2018-11-02 05:05] VITALS: BP 149/60
--- NOTE | 2018-11-02 06:36 | NUR ---
PT MAKING SLOW PROGRESS TOWARDS GOALS. ON O2 AT 4L PER NC. DID ONLY USE BIPAP FOR APPROXIMATELY 4 HOUR OVERNIGHT. LUNGS SOUNDS WITH WHEEZING THROUGHOUT.
[2018-11-02 08:04] VITALS: BP 154/78
[2018-11-02 09:26] LABS: HEMATOCRIT 32.3 % (37.0-47.0); HEMOGLOBIN 10.2 gm/dL (12.0-15.0); MCH 25.4 pg (26.0-34.0); MCHC 31.6 g/dL (28.0-37.0); MCV 80.4 fL (80.0-100.0); RBC 4.01 mil/uL (4.20-5.00); RDW 16.7 % (10.5-14.5); WBC 13.5 thou/uL (4.0-11.0)
[2018-11-02 09:37] LABS: CALCIUM 8.9 mg/dL (8.5-10.1); CREATININE 1.2 mg/dL (0.6-1.0); MAGNESIUM 1.8 mg/dL (1.8-2.4); POTASSIUM 5.3 mmol/L (3.5-5.1)
--- NOTE | 2018-11-02 10:08 | PATH ---
[facility] [place] [address] PATHOLOGY RPT PROCEDURE Name: LUPE DOSHI Room #: 356-P ADM IN M.R.#: [id number] ������������������ Admission: 10/24/18 ������������������ Date of : 50 Discharge: Report #: [id number] Path Case #: [id number] Note [facility] Accession Number: [id number] TESTS RESULT FLAG UNITS REF RANGE LAB Clinician Provided Cytology Information No. of containers..01 Other (Miscellaneous) Source: RLL BRUSHTIP DIAGNOSIS: 02 RIGHT LOWER LOBE, BRUSHTIP INCONCLUSIVE. REACTIVE BRONCHIAL CELLS ARE PRESENT. REACTIVE CELLULAR CHANGES NOTED. COMMENT: Examination shows a few groups of cells with nuclear crowding, stratification, clumped chromatin and multiple nucleoli. Definitive features of malignancy are not present. These may represent reactive cellular changes in a background of inflammation. The scant nature precludes a definitive interpretation in lieu of the provided history of "mass". Please correlate clinically. Dr. Joanne. Marsha Bronson and Dr. Rosita De Leon have seen this case and concur with my diagnosis. Pathologist ICD10: 02 J44.9 Signed out by: Kaleigh Aranda MD, Pathologist NPI- [id number] Performed by: 01 Cristina Taurus, Supervisor Sample (ASCP) FLAG LEGEND: L-Low Normal,H-High Normal,LL-Alert Low,HH-Alert High <-Panic Low,>-Panic High,A-Abnormal,AA-Critical Abnormal Performed at: [facility] [address] [facility] [address] [facility] [address] [place] [address] Jaden Wise MD, [address] [address] Kaleigh Aranda MD, Specimen Comment: A courtesy copy of this report has been sent to Specimen Comment: [phone], . Specimen Comment: Report sent to and Specimen Comment: A duplicate report has been generated due to demographic updates. [address] [address] PATHOLOGY RPT PROCEDURE Name: LUPE DOSHI Room #: 356-P ADM IN ..#: [id number] ������������������ Admission: 10/24/18 ������������������ Date of : 50 Discharge: Report #: [id number] Path Case #: [id number] Performed at: 01 [facility] [place] [address], [place], [place] [id number] MD Jaden Wise MD Phone: [phone]
--- NOTE | 2018-11-02 10:08 | PATH ---
[facility] [address] [place] [address] PATHOLOGY RPT PROCEDURE Name: LUPE DOSHI Room #: 356-P ADM IN .R.#: [id number] ������������������ Admission: 10/24/18 ������������������ Date of : 50 Discharge: Report #: [id number] Path Case #: [id number] Note [facility] Accession Number: [id number] TESTS RESULT FLAG UNITS REF RANGE LAB Clinician Provided Cytology Information No. of containers..01 Other (Miscellaneous) Source: RLL BAL DIAGNOSIS: RLL BAL NEGATIVE FOR MALIGNANT CELLS. PULMONARY MACROPHAGES, BRONCHIAL EPITHELIAL CELLS AND INFLAMMATORY. Pathologist ICD10: 02 J44.9 Signed out by: Kaleigh Aranda MD, Pathologist NPI- [id number] Performed by: Cristian Condon, Tail Worker ([facility]) Gross description: 01 20ML, RED, CLOUDY /LCS FLAG LEGEND: L-Low Normal,H-High Normal,LL-Alert Low,HH-Alert High <-Panic Low,>-Panic High,A-Abnormal,AA-Critical Abnormal Performed at: [address] [place] [address] Jaden Wise MD, [address] [address] Kaleigh Aranda MD, Specimen Comment: A courtesy copy of this report has been sent to Specimen Comment: [phone], . Specimen Comment: Report sent to and Specimen Comment: A duplicate report has been generated due to demographic updates. Performed at: [address], [place], [place] [id number] MD Jaden Wise MD Phone: [phone]
--- NOTE | 2018-11-02 10:08 | PATH ---
[facility] [place] [address] PATHOLOGY RPT PROCEDURE Name: LUPE DOSHI Room #: 356-P ADM IN M.R.#: [id number] ������������������ Admission: 10/24/18 ������������������ Date of : 50 Discharge: Report #: [id number] Path Case #: [id number] Note [facility] Accession Number: [id number] TESTS RESULT FLAG UNITS REF RANGE LAB Clinician Provided Cytology Information No. of containers..01 Slide Source: 01 RLL BRUSHINGS DIAGNOSIS: 02 RIGHT LOWER LOBE, BRUSHINGS INCONCLUSIVE. REACTIVE BRONCHIAL CELLS ARE PRESENT. REACTIVE CELLULAR CHANGES NOTED. RED BLOOD CELLS ARE PRESENT. Comment: Examination shows sheets of cells with nuclear overlapping and multiple prominent chromocenters within the nuclei. High nuclear to cytoplasmic ratio or mitotic figures are not identified. The interpretation is limited by the air-drying artifact. Findings may be suggestive of reactive changes in a background of inflammation. Definitive neoplastic features are not identified although are considered in the differential diagnosis. Clinical correlation is required. History of lung mass is noted. This case was also reviewed by Dr. Marisela Bronson and Dr.Ambreen De Leon. Pathologist ICD10: 02 J44.9 Signed out by: Rafael Aranda MD, Pathologist NPI- [id number] Performed by: 01 Cristina Condon, Technical Operations Manager (ASCP) FLAG LEGEND: L-Low Normal,H-High Normal,LL-Alert Low,HH-Alert High <-Panic Low,>-Panic High,A-Abnormal,AA-Critical Abnormal Performed at: 01 [facility] [address] [place] [address] [address] [place] [address] Jaden Wise MD, [address] [address] Kaleigh Aranda MD, Specimen Comment: A courtesy copy of this report has been sent to Specimen Comment: [phone], . Specimen Comment: Report sent to and [address] [address] PATHOLOGY RPT PROCEDURE Name: LUPE DOSHI Room #: 356-P [facility] IN ..#: [id number] ������������������ Admission: 10/24/18 ������������������ Date of : 50 Discharge: Report #: [id number] Path Case #: [id number] Specimen Comment: A duplicate report has been generated due to demographic updates. Performed at: 01 [facility] [place] [address] [facility] [address] [address], [place], [place] [id number] MD Jaden Wise MD Phone: [phone]
[2018-11-02 11:45] VITALS: BP 147/66
--- NOTE | 2018-11-02 14:23 | HC ---
[facility] [place] [address] CONSULTATION Name: LUPE DOSHI Room #: 356-P ADM IN M.R.#: [id number] Admission: 10/24/18 ������������������ Attend Phys: Benjamin Jacob MD Discharge: ������������������ Date of : 50 Report #: [id number] THIS REPORT FOR: //name// CC: Benjamin Dumont DATE OF SERVICE: 11/01/2018 TYPE OF REPORT: Infectious diseases consultation. REASON FOR CONSULTATION: I was asked to evaluate concerning pneumonia. HISTORY OF PRESENT ILLNESS: The patient was a 68-year old underlying history of SLE, COPD, chronic corticosteroids and oxygen with chronic pain syndrome who was admitted on 10/24/2018 and transferred from [facility] with increased cough, congestion and hypoxia. Chest x-ray had revealed a new right hilar mass and CT scan showed collapse of her right middle lobe. She underwent bronchoscopy, which showed tracheomalacia and bronchomalacia. BAL was performed resulting in MRSA identified from the right lower lobe. She has residual infiltrate in this region. Continues to have cough with minimal sputum production. No pleuritic chest pain. No hemoptysis. She has had no travel. She has been on antibiotics since her admission. Now on vancomycin and Zosyn. No travel. Previously treated for pseudomonas cavitary pneumonia. She has had a previous partial pneumonectomy. This is for underlying fungal disease. She has remained on prednisone daily anywhere from 5-10 mg a day. ALLERGIES: NAPROSYN, TIZANIDINE and DOXYCYCLINE. MEDICATIONS: As noted on her MAR, which were reviewed. PAST MEDICAL HISTORY: In addition to the above of diabetes, heart disease, hypertension, cervical fusion and appendectomy. FAMILY HISTORY: Noncontributory. SOCIAL HISTORY: Smoker of cigarettes, hepatitis C positive. Previous HIV has been negative. REVIEW OF SYSTEMS: No nausea, vomiting or diarrhea. No headaches. No neurologic issues. A 10-point review of systems was negative other than what has been described above. PHYSICAL EXAMINATION: VITAL SIGNS: Afebrile and hemodynamically stable. GENERAL: She was alert and anxious, on oxygen at 4 liters per nasal cannula. [facility] [address] [place] [address] CONSULTATION Name: LUPE DOSHI Room #: 356-P [facility] IN .R.#: [id number] Admission: 10/24/18 ������������������ Attend Phys: Benjamin Jacob MD Discharge: ������������������ Date of : 50 Report #: [id number] She would cry intermittently during her evaluation. SKIN: Unremarkable with no rash or ulceration. No palpable adenopathy. HEENT: Eyes, without scleral icterus. Mouth, without mucositis or lesion. NECK: Supple, with no thyromegaly or mass. LUNGS: Decreased breath sounds anteriorly. She did have coarse breath sounds in the right mid posterior lower lung ware. No consolidation or rub identified. CARDIOVASCULAR: Heart was regular, without murmur, gallop or rub. ABDOMEN: Distended and nontender. No hepatosplenomegaly or mass. EXTREMITIES: Without cyanosis, clubbing or edema. NEUROLOGICAL: Cranial nerves intact. Strength in the upper and lower extremities is normal and symmetric. Sensation intact in the upper and lower extremities. LABORATORY STUDIES: Sodium 135, potassium 5.2, bicarbonate at 37 and creatinine 1. Hemoglobin 9.8; white count 9.3 and platelet count 266,000. RSV B positive. BAL, right lower lobe MRSA. RADIOLOGICAL DATA: Chest x-ray, right basilar infiltrate. CT scan of the chest showed right middle lobe collapse with associated adenopathy. IMPRESSION: Chronic obstructive pulmonary disease with exacerbation along with methicillin-susceptible Staphylococcus aureus pneumonia, right lower lobe along with respiratory syncytial virus B positive. This is in the setting of chronic corticosteroids, systemic lupus erythematosus, hypertension, diabetes, chronic pain syndrome and hepatitis C. Also, of note, in review of her CT scan, she had a sclerotic lesion involving L1 vertebral body. This is yet indeterminate. RECOMMENDATIONS: We will continue IV antibiotic therapy with vancomycin and Zosyn, pending final cultures. RSV in the setting of current immunosuppression. We will require isolation procedure. We will await final culture results. We will also await further workup of her vertebral lesion. We will evaluate further for hepatitis C treatment following dismissal. ��������������������������������������������� <ELECTRONICALLY SIGNED> ���������������������������������������� By: Robin Shipley MD ��������������������������������������������� 11/02/18 1423 [id number] Robin Shipley MD /nt
--- NOTE | 2018-11-02 15:46 | NUR ---
SW reviewed chart and spoke with nursing and attending physician. Workup continues for vertebral L1 lesion. Oncology following. Plan is for pt to discharge home and readmit to [facility]. SW is following to assist as needed with discharge planning.
--- NOTE | 2018-11-02 15:46 | NUR ---
Assumed care of patient at 0700. Vitals have been stable. Maintaining oxygen saturations on 4-5L NC, but does get very SOB easily, especially with exertion. Takes time to recover. Tearful at times, stating, I just want to breathe. Alert and oriented x4. Complaints of left shoulder, neck pain - treated with PRN Fentanyl and [place]. Patient states new pain regimen is helping. Up with SBA to BSC. Strength is good, but hard to recover from SOB. Calls appropriately. Voiding adequately. Right PICC line intact; started IVF and continued IV antibiotics. Attempting to progress towards POC. Will continue to monitor.
[2018-11-02 16:18] VITALS: BP 156/71
[2018-11-02 20:30] VITALS: BP 129/63
--- NOTE | 2018-11-03 03:27 | NUR ---
PATIENT IS SLOWLY PROGRESSING IN HER CARE PLAN. VITAL SIGNS STABLE WITH PATIENT HAVING NO COMPLAINTS OF NAUSEA. PATIENT DID COMPLAIN OF PAIN FREQUENTLY WHICH WAS TREATED TO VARYING DEGREES OF SUCCESS WITH MEDICATIONS AND NON PHARMACOLOGICAL INTERVENTION. ORIENTED BUT FORGETFUL, PATIENT WAS ABLE TO CALL APPROPRIATELY FOR REQUESTS AND PARTICIPATE IN CARE PLAN. BREATHING STABLE ON NASAL CANNULA AND BIPAP HS/NOC EVIDENCED BY CONTINUOUS SATURATION IN ACCEPTABLE RANGE. PATIENT DOES DESAT QUICKLY WITH ACTIVITY. PATIENT IS VERY ANXIOUS AT TIMES AND NURSE MADE BEST EFFORT TO PUT PATIENT AT EASE AND TREAT ANXIETY WITH ORDERED MEDICATION. UP MULTIPLE TIMES TO BEDSIDE COMMODE WITH ASSISTANCE INCIDENT FREE, PATIENT IS A HIGH FALL RISK BUT CAN BE IMPULSIVE AT TIMES DUE TO URGENCY. CONTINUE PLAN OF CARE.
[2018-11-03 04:00] VITALS: BP 115/71
[2018-11-03 05:14] LABS: HEMATOCRIT 30.1 % (37.0-47.0); HEMOGLOBIN 9.6 gm/dL (12.0-15.0); MCH 25.8 pg (26.0-34.0); MCV 80.6 fL (80.0-100.0); RBC 3.74 mil/uL (4.20-5.00); RDW 16.6 % (10.5-14.5); WBC 12.6 thou/uL (4.0-11.0)
[2018-11-03 05:32] LABS: CALCIUM 8.8 mg/dL (8.5-10.1); CREATININE 0.9 mg/dL (0.6-1.0); MAGNESIUM 1.8 mg/dL (1.8-2.4)
[2018-11-03 08:56] VITALS: BP 141/61
[2018-11-03 12:01] VITALS: BP 151/77
--- NOTE | 2018-11-03 15:24 | NUR ---
Assumed care of patient at 0700. Vitals have been stable. Maintaining oxygen saturations on 4L NC. Still SOB with minimal activity. Complaints of generalized pain, controlled well with Fentanyl and [place] PRN. Patient feeling anxious this afternoon - Ativan PRN. Also complaining of increasing SOB and swelling. States that was given Lasix before and this helped her breathing. Updated Dr. Chu. Okay to discontinue IVF and onetime dose of Lasix PO. Patient up with SBA to BSC. Voiding adequately. Attempting to progress towards POC. Will continue to monitor.
--- NOTE | 2018-11-03 16:41 | NUR ---
SW reviewed chart and spoke with nursing and attending physician. Pt is progressing towards goals for discharge. Discharge plan is for pt to return home with hospice. SW spoke with intake at [facility] to provide update. Home O2 and DME will need to be delivered to pt's home prior to discharge. Discharge is anticipated for tomorrow. SW is following to assist as needed with discharge planning.
--- NOTE | 2018-11-03 18:01 | NUR ---
ASSUMED CARE OF PT AT 0700. VITAL SIGNS STABLE. MAINTAINING OXYGEN SATURATIONS ON 4L NC. PATIENT EASILY SOB, ESPECIALLY WITH ACTIVITY. LUNG SOUNDS WHEEZY AND DIMINSHED THROUGHOUT. THIS AFTERNOON PATIENT COMPLAINED OF GENERALIZED PAIN, WHICH WAS SUCCESSFULLY CONTROLLED WITH PRN NORCO AND FENTANYL, AND PRN ATIVAN GIVEN FOR ANXIETY. PATIENT EXPLAINED SHE RECIEVED LASIX RECENTLY WHICH SHE FELT HELPED HER BREATHING. CALLED DR. ANDRES- ONE TIME DOSE ORDERED AND ADMINISTERED FOR SOB; CONTINUOUS FLUIDS STOPPED. PATIENT VOIDING FREQUNETLY TO BEDSIDE COMMODE WITH SBA. ABLE TO CALL OUT APPROPRIATELY. SLOWLY PROGRESSING TOWARDS GOALS. WILL CONTINUE TO MONITOR.
[2018-11-03 20:30] VITALS: BP 130/69
--- NOTE | 2018-11-04 03:56 | NUR ---
Pt. gets very anxious and easily frustrated missy when she had to get up to commode in a hurry and she's connected to O2,IV and sat monitor. Lorazepam given per her request to help her calm down with some help. Medicated for pain with some relief.She slept fair during the night. O2 at 4L/NC then BIPAP at 40% FIO2 once she started sleeping. Shortness of breath with exertion. Cont. on isolation , afebrile. Bed alarm on for safety , calls appropriately most of the time. Making progress towards care plan goals.
[2018-11-04 04:30] VITALS: BP 138/68
[2018-11-04 07:35] VITALS: BP 158/77
[2018-11-04 11:44] VITALS: BP 130/97
--- NOTE | 2018-11-04 14:11 | NUR ---
Assumed care of patient at 0700. Vitals have been stable. Maintaining oxygen saturations on 4L NC. Still SOB with activity, but patient does feel that breathing is improved today compared to yesterday. States that has been able to cough some mucus up - things are loosening up. Complaints of generalized pain, controlled well with PRN [place]. Encouraging patient to try to use PO pills for pain and use Fentanyl for breakthrough pain. Verbalizes understanding. Anxious at times, controlled well with PRN Ativan. Up with SBA. Patient is stating today that she does not feel comfortable returning home by herself ( is at home, but patient is home alone often), and would like to try some therapy or rehab. Updated case management. PT / OT evaluations ordered. Plan for patient to work with therapies over the weekend. Slowly progressing towards POC. Will continue to monitor.
--- NOTE | 2018-11-04 14:20 | NUR ---
SW reviewed chart and spoke with nursing and attending physician. Pt stated to staff that she now wants to go to rehab before returning home with hospice. Therapy evaluations ordered today and will be needed in order to get insurance authorization. LUNA met with pt at bedside to discuss discharge plan. Pt states that her goal is to eventually return home with hospice, but she wants to get better before going home. Pt reports that someone told her that she could go to [facility] for rehab before returning home. SW discussed framework of hospice services and that going to rehab would be aggressive care. Pt states that she is aware for hospice services/benefits, but is wanting to try to get better if she can. Pt states that a physician told her she would benefit from additional therapy. Pt is normally on 3L of O2. Pt currently on 5L. SW discussed pt's treatment goals. Pt continues to state that she wants to have hospice and not HH when she returns home, because they are able to provide her medications and DME. Pt states she is limited financially. SW explained the difference in [facility] v. SNF. Pt has been to the swing bed unit at [facility] in [place]. Pt states she does not think she is able to do the 3 hours of therapy that is required for inpt acute rehab. Pt agreeable with referral to [facility]. LUNA updated attending physician and nursing. Therapy will work with pt over the weekend. LUNA notified Director of therapy. LUNA udpated intake at [facility]. LUNA is following to assist as needed with discharge planning.
--- NOTE | 2018-11-04 14:37 | NUR ---
DISCHARGE PLAN. REFERRAL FAXED TO [facility] SWING BED UNIT PER PATIENT REQUEST. CALL PLACED TO [facility] SWING BED [facility]AMP SHADE [facility]WER. NOTIFIED [facility] OF PATIENT REFERRAL AND DISCHARGE NEEDS. [facility] TO REVIEW REFERRAL AND CONTACT KILEY ONCE COMPLETE. FOLLOWING TO ASSIST WITH DC NEEDS. UNIT CM/LUNA AWARE.
[2018-11-04 16:08] VITALS: BP 133/64
[2018-11-04 20:10] VITALS: BP 150/81
[2018-11-05 04:05] VITALS: BP 115/80
--- NOTE | 2018-11-05 04:19 | NUR ---
Patient making slow progress towards outcome goals. Anxiety and pain slowing down progress. Hydrocodone and Lorazepam given with some relief. Patient cautioned on Fentanyl use, encourage to taker Hydrocodone. Oxygenation optimal on 2L/NC. Tolerated BIPAP only or 3 hours. High fall risk, patient declined bed alarm on. Gait steady and patient calls for assistance appropriately.
[2018-11-05 11:31] VITALS: BP 127/103
[2018-11-05 16:18] VITALS: BP 140/69
--- NOTE | 2018-11-05 18:05 | NUR ---
Assumed care of Pt at 0700. Pt alert and oriented, in no acute distress. Breathing comfortably on supplemental oxygen. Refuses bed alarm but has steady gait. calls out appropriately. pain and anxiety well controlled with current med regimen. SR/SB on telemetry. will cont to monitor. good progress toward poc goals.
[2018-11-05 21:15] VITALS: BP 145/67
--- NOTE | 2018-11-06 02:17 | NUR ---
PATIENT IS ALERT AND ORIENTED. AT TIMES PATIENT CAN GET ANXIOUS. PATIENTS LBM WAS THE 16TH. PATIENT IS UP AD DOUG. PATIENT IS SINUS JEMAL ON TELE. PATIENTS PAIN IS CONTROLLED WITH MEDICATION. PATIENT IS ON 2LNC DURING THE DAY AND BIPAP HS. PATIENT IS PENDING REHAB WEDNESDAY. PATIENT IS ACHS. PATIENT IS RESTING COMFORTABLY IN BED WCM.
[2018-11-06 04:45] VITALS: BP 129/65
[2018-11-06 07:44] LABS: HEMOGLOBIN 9.9 gm/dL (12.0-15.0); MCH 26.2 pg (26.0-34.0); MCHC 31.9 g/dL (28.0-37.0); RBC 3.78 mil/uL (4.20-5.00); RDW 16.8 % (10.5-14.5)
[2018-11-06 07:57] LABS: CALCIUM 9.3 mg/dL (8.5-10.1); POTASSIUM 4.6 mmol/L (3.5-5.1)
[2018-11-06 09:34] VITALS: BP 117/66
[2018-11-06 12:32] VITALS: BP 124/61
[2018-11-06 15:42] VITALS: BP 126/60
[2018-11-06 20:07] VITALS: BP 134/69
--- NOTE | 2018-11-07 01:25 | NUR ---
PATIENT IS ALERT AND OREINTED. PATIENT IS UP AD DOUG AND CALLS APPROPIATLY. PATIENT IS IN ISO FOR MRSA RESP. PATIENTS PAIN AND ANXIETY ARE TREATED WITH MEDS. PATIENT TOLERATES RESP TREATMENTS WELL. PATIENT WOULD LIKE ANOTHER DECONGESTANT FOR EAR. LBM WAS THE . PATIENT IS ACHS ACCUCHECKS. PATIENT IS SINUS JEMAL NSR ON TELE. PATIENT IS ON 2L NC AND BIPAP HS. PENDING REHAB WEDNESDAY. PATIENT IS RESTING COFMORTABLY WCM.
[2018-11-07 04:30] VITALS: BP 142/78
[2018-11-07 07:58] VITALS: BP 130/70
[2018-11-07 11:39] VITALS: BP 131/54
[2018-11-07] MEDS ORDERED: NYSTATIN100000 UNI SW&SWALLOW (11:44)
[2018-11-07] MEDS ORDERED: LINEZOLID600 MG PO (11:44)
[2018-11-07] MEDS ORDERED: ENOXAPARIN40 MG/0.1 SUBQ (11:44)
[2018-11-07] MEDS ORDERED: MUCINEX600 MG PO (11:45)
[2018-11-07] MEDS ORDERED: PREDNISONE 20 M20 M1 PO (11:47)
[2018-11-07] MEDS ORDERED: LANTUS100 UNIT/M SUBQ (11:47)
--- NOTE | 2018-11-07 12:27 | NUR ---
SW reviewed chart and spoke with nursing and attending physician. Pt is medically stable for discharge. meeting planner faxed updated clinical and therapy notes to intake at [facility] swing bed unit. Will need insurance authorization. LUNA met with pt at bedside to provide update. Pt is aware and agreeable with discharge plan. Pt requests info on AD. SW will take pt an AD booklet later today. LUNA is following to assist as needed with discharge planning.
--- NOTE | 2018-11-07 12:33 | NUR ---
DP FAXED REFERRAL TO [facility] BED, DP ALSO SENT TODAY'S PT AND OT NOTES TO FACILITY.
[2018-11-07 15:17] VITALS: BP 128/75
--- NOTE | 2018-11-07 16:07 | NUR ---
Assumed care of Pt at 0700. Pt alert and oriented, in no acute distress. pain and anxiety well controlled with current med regimen. SB/SR on telemetry. calls out appropriately. breathing comfortably on supplemental oxygen, occasional wheezes. anticipate d/c to rehab pending insurance. will cont to monitor. good progress toward poc goals.
[2018-11-07 19:24] VITALS: BP 148/72
--- NOTE | 2018-11-08 00:55 | NUR ---
BIPAP NOT IN USE PT REFUSES IT. PT STATES, "IT CREATES A GREAT AMOUNT OF ANXIETY." PT REQUEST ALL PAIN MEDICATIONS AND LORAZEPAM. PT HR ARE JEMAL IN THE 45 AND AND UP. RT STILL GIVING TREATMENTS POC CALLS FOR. PT UP TO BATHROOM. HOURLY ROUNDING. PT SHOULD DC TOMORROW TO [facility] IN [place], [place].
[2018-11-08 04:05] VITALS: BP 143/66
[2018-11-08 07:40] VITALS: BP 98/54
--- NOTE | 2018-11-08 10:15 | NUR ---
ON-GOING ASSESSMENT: KILEY SPOKE WITH GABRIELE FROM [facility] WHO STATES THEY CAN CLINICALLY ACCEPT PATIENT AND HAVE SUBMITTED FOR INSURANCE AUTH. WAITING TO HEAR BACK AT THIS TIME.
[2018-11-08 11:20] VITALS: BP 134/48
--- NOTE | 2018-11-08 11:30 | NUR ---
[facility] will accept patient and has authorization. DP spoke to Adiel and patient will dc today. DP will arrange transportation and then send updates and dc paperwork to [facility] (swing bed) fax to [phone], then call to give time. JESSIE asked Lizeth/ludmila patient care secretary to make chart copy for patient.
[2018-11-08] MEDS ORDERED: FENTANYL 0.50 MCG/ML IV PUSH (13:33)
--- NOTE | 2018-11-08 15:12 | NUR ---
Assumed care of Pt at 0700. Pt alert and oriented, anxious about discharging today. breathing comfortably on 2L NC. up w/ SBA. sinus demi on telemetry. vitals stable. physician notified about keeping picc line through transfer to [facility] - instructed to keep picc line for IV fentanyl. picked up w/ [employer] at approx 1500.
--- NOTE | 2018-11-08 15:32 | NUR ---
DISCHARGE NOTE: SW reviewed chart and spoke with nursing and attending physician. Pt is medically stable for discharge to [facility] swing bed unit. Insurance authorization obtained. landscape architect and planner coordinated. Chart copy requested. Nursing provided with info to call report. No additional SW needs identified at this time, but is available to assist should needs arise.
== END 2018-11-08 15:31 | DRG 177 ==
LOC: 4W 19:27 → ICU 21:35 → 4W 21:35 → ICU 10-26 16:46 → 3W 10-29 07:11
PROVIDERS: Hospitalist; Internal Medicine; Internal Medicine Hematology & Oncology; Nurse Practitioner Family; Pediatrics; ADMIT Hospitalist
PROC: 0BD68ZX Extraction of Right Lower Lobe Bronchus, Via Natural or Artificial Opening Endoscopic, Diagnostic (ICD-10-PCS; principal; 2018-10-26)
PROC: 5A09357 Assistance with Respiratory Ventilation, Less than 24 Consecutive Hours, Continuous Positive Airway Pressure (ICD-10-PCS; principal; 2018-10-26)
PROC: 0B9F8ZX Drainage of Right Lower Lung Lobe, Via Natural or Artificial Opening Endoscopic, Diagnostic (ICD-10-PCS; principal; 2018-10-26)
PROC: 05HY33Z Insertion of Infusion Device into Upper Vein, Percutaneous Approach (ICD-10-PCS; 2018-10-27)
PROC: 5A09357 Assistance with Respiratory Ventilation, Less than 24 Consecutive Hours, Continuous Positive Airway Pressure (ICD-10-PCS; 2018-10-27)
PROC: 5A09357 Assistance with Respiratory Ventilation, Less than 24 Consecutive Hours, Continuous Positive Airway Pressure (ICD-10-PCS; 2018-10-30)
PROC: 5A09357 Assistance with Respiratory Ventilation, Less than 24 Consecutive Hours, Continuous Positive Airway Pressure (ICD-10-PCS; 2018-10-31)
PROC: 5A09357 Assistance with Respiratory Ventilation, Less than 24 Consecutive Hours, Continuous Positive Airway Pressure (ICD-10-PCS; 2018-11-01)
PROC: 5A09357 Assistance with Respiratory Ventilation, Less than 24 Consecutive Hours, Continuous Positive Airway Pressure (ICD-10-PCS; 2018-11-02)
PROC: 5A09357 Assistance with Respiratory Ventilation, Less than 24 Consecutive Hours, Continuous Positive Airway Pressure (ICD-10-PCS; 2018-11-03)
PROC: 5A09357 Assistance with Respiratory Ventilation, Less than 24 Consecutive Hours, Continuous Positive Airway Pressure (ICD-10-PCS; 2018-11-04)
PROC: 5A09357 Assistance with Respiratory Ventilation, Less than 24 Consecutive Hours, Continuous Positive Airway Pressure (ICD-10-PCS; 2018-11-05)
PROC: 5A09357 Assistance with Respiratory Ventilation, Less than 24 Consecutive Hours, Continuous Positive Airway Pressure (ICD-10-PCS; 2018-11-06)
PROC: 5A09357 Assistance with Respiratory Ventilation, Less than 24 Consecutive Hours, Continuous Positive Airway Pressure (ICD-10-PCS; 2018-11-07)
PROC: 5A09357 Assistance with Respiratory Ventilation, Less than 24 Consecutive Hours, Continuous Positive Airway Pressure (ICD-10-PCS; 2018-11-08)
DX: J15.6 Pneumonia due to other Gram-negative bacteria (principal); J96.21 Acute and chronic respiratory failure with hypoxia; J96.22 Acute and chronic respiratory failure with hypercapnia; J44.1 Chronic obstructive pulmonary disease with (acute) exacerbation; G95.89 Other specified diseases of spinal cord; J44.0 Chronic obstructive pulmonary disease with (acute) lower respiratory infection; J15.211 Pneumonia due to Methicillin susceptible Staphylococcus aureus; E11.65 Type 2 diabetes mellitus with hyperglycemia; E11.22 Type 2 diabetes mellitus with diabetic chronic kidney disease; I12.9 Hypertensive chronic kidney disease with stage 1 through stage 4 chronic kidney disease, or unspecified chronic kidney disease; N18.3 Chronic kidney disease, stage 3 (moderate); E66.9 Obesity, unspecified; M32.9 Systemic lupus erythematosus, unspecified; G89.4 Chronic pain syndrome; B19.20 Unspecified viral hepatitis C without hepatic coma; F41.9 Anxiety disorder, unspecified; M06.9 Rheumatoid arthritis, unspecified; J45.909 Unspecified asthma, uncomplicated; G47.33 Obstructive sleep apnea (adult) (pediatric); G25.81 Restless legs syndrome; E11.42 Type 2 diabetes mellitus with diabetic polyneuropathy; M48.9 Spondylopathy, unspecified; D50.9 Iron deficiency anemia, unspecified; B95.62 Methicillin resistant Staphylococcus aureus infection as the cause of diseases classified elsewhere; F41.1 Generalized anxiety disorder; J22 Unspecified acute lower respiratory infection; Z68.29 Body mass index [BMI] 29.0-29.9, adult; Z87.891 Personal history of nicotine dependence; Z88.8 Allergy status to other drugs, medicaments and biological substances; Z90.49 Acquired absence of other specified parts of digestive tract; Z79.52 Long term (current) use of systemic steroids
CPT/HCPCS: 10047; 10078; 10879; 27000; 70005

== ENCOUNTER 2019-06-29 10:25 | Inpatient (IN) | payer OTHER ==
[~2019-06-29] VITALS: Ht 165.1 cm; Wt 80.7 kg
[2019-06-29] VITALS (46 sets, daily range): BP systolic 144–173; BP diastolic 52–81
--- NOTE | ~2019-06-29 | HC ---
[facility] [address] [place] [address] CONSULTATION Name: LUPE DOSHI Room #: 356-P ADM IN M.R.#: [id number] Admission: 06/29/19 Attend Phys: Mario Quintana Discharge: Date of : 50 Report #: [id number] THIS REPORT FOR: //name// CC: Mario Dumont DATE OF SERVICE: 07/03/2019 HISTORY OF PRESENT ILLNESS: The patient is a 69-year-old female admitted with severe hyperkalemia, ____, hypoxic, and agitated. She was life-flighted from [facility] to [facility]. She was noted to be in a junctional rhythm, sinus demi at 55. She had acute on chronic respiratory failure, COPD exacerbation as well as encephalopathy, toxic metabolic as well as potentially a hypoxic component. She was treated for chronic kidney disease stage 3. 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 The patient was on the mechanical ventilator until she was extubated yesterday. She continues in the intensive care unit. We are seeing her in rehabilitation medicine consultation. PAST MEDICAL HISTORY: Includes COPD, asthma, right lung lobectomy, lupus, chronic pain, right breast biopsy, right thumb repair, lung biopsy showing diffuse nodular lymphoid hyperplasia, rheumatoid arthritis, on chronic steroids, restless leg syndrome, fibromyalgia, peripheral neuropathy, diabetes mellitus type 2, Addy spotted fever, and MRSA. MEDICATIONS: Please see the full medication listing. ALLERGIES: NAPROXEN, TIZANIDINE, AND DOXYCYCLINE. SOCIAL HISTORY: She lives in a house with her . She is on 3 liters O2 at home. Did not utilize gait aids, was independent with ADLs. She lives with her in [place], [place]. travels for work. Her children are nearby. REVIEW OF SYSTEMS: She did have a right eye spontaneous conjunctival hemorrhage. Otherwise, no facial complaints. No headache. No chest pain, shortness of breath, abdominal discomfort at this time. Did not offer any complaints of bowel or bladder problems. No chilling. No focal extremity pain complaints. PHYSICAL EXAMINATION: GENERAL: A 69-year-old white female in no obvious distress. VITAL SIGNS: Last recorded temperature 98.4, pulse 61, respirations 18, blood pressure 149/65. The patient is alert. She does have a definite latency to her [facility] [address] [place] [address] CONSULTATION Name: LUPE DOSHI Room #: 356-P [facility]#: [id number] Admission: 06/29/19 Attend Phys: Mario Quintana Discharge: Date of : 50 Report #: [id number] responses, but will follow basic 1 step commands. HEENT: Facies appeared symmetric. She has the right eye conjunctival hemorrhage. EXTREMITIES: She has functional range of motion of the upper extremity. Strength is grade 4- to 3+/5. DTRs are trace to 1. Lower extremities, no focal calf swelling, functional range of motion, strength is grade 3+ to 4-/5. DTRs are trace to 1. PT and OT are ordered to evaluate. ASSESSMENT: A 69-year-old white female with the following problems list: 1. Toxic metabolic encephalopathy with possible hypoxic component, which appears to be improving. 2. Medical complexity with generalized debilitation. 3. Acute on chronic hypercapnic hypoxemic respiratory failure. 4. Chronic obstructive pulmonary disease exacerbation. 5. Acute on chronic renal failure. 6. Hyperkalemia. 7. History of disseminated Methicillin-resistant Staphylococcus aureus. 8. Chronic pain, on chronic narcotics. 9. Anxiety disorder. 10. Chronic kidney disease stage 3. 11. Diabetes mellitus type 2. 12. History of lupus with rheumatoid arthritis. 13. Hypertension. PLAN: Therapy evaluations are underway. We will be glad to see how the patient tolerates her therapies and be glad to follow along with you regarding her rehab therapy needs. By: 1421 0330 Leon Allred MD /nt
[~2019-06-29 10:25] MED LIST changes: +ENOXAPARIN40 MG/0.1 SUBQ; +FENTANYL 0.50 MCG/ML IV PUSH; +LINEZOLID600 MG PO; +NYSTATIN100000 UNI SW&SWALLOW; +SEROQUEL 25 MG25 M1 PO; +SPIRIVA RESPIMAT4 G1 PO; +WELLBUTRIN XL150 MG PO
[2019-06-29 12:24] LABS: BE(vivo) 8.8 mmol/L (-2 to +3); HCO3 36.2 mmol/L (22.0-26.0); PO2 389.4 mmHg (80.0-100.0); pH 7.334 (7.360-7.450); sO2 99.8 % (92.0-98.0)
[2019-06-29 12:27] LABS: PCO2 69.6 mmHg (35.0-45.0)
[2019-06-29 12:44] LABS: HEMATOCRIT 27.3 % (37.0-47.0); HEMOGLOBIN 7.9 gm/dL (12.0-15.0); MCH 20.3 pg (26.0-34.0); MCHC 28.8 g/dL (28.0-37.0); MCV 70.6 fL (80.0-100.0); RBC 3.87 mil/uL (4.20-5.00); RDW 18.7 % (10.5-14.5); WBC 8.7 thou/uL (4.0-11.0)
[2019-06-29 12:56] LABS: ALBUMIN 3.4 g/dL (3.4-5.0); CALCIUM 9.3 mg/dL (8.5-10.1); TOTAL BILIRUBIN 0.4 mg/dL (<0.1-1.0); TOTAL PROTEIN 6.5 g/dL (6.4-8.2)
[2019-06-29 13:02] LABS: POTASSIUM 6.6 mmol/L (3.5-5.1)
[2019-06-29 13:17] LABS: URINE BILIRUBIN NEGATIVE (Negative); URINE BLOOD 1+ (Negative); URINE CLARITY CLEAR; URINE COLOR YELLOW; URINE GLUCOSE-RANDOM* NEGATIVE (Negative); URINE KETONES NEGATIVE (Negative); URINE LEUKOCYTES NEGATIVE (Negative); URINE NITRITE NEGATIVE (Negative); URINE PROTEIN (DIPSTICK) NEGATIVE (Negative); URINE SPECIFIC GRAVITY 1.015 (1.005-1.035); URINE UROBILINOGEN 0.2 E.U./dl (0.2-1.0)
--- NOTE | 2019-06-29 13:25 | NUR ---
1200-DIRECT ADMIT FROM [facility] ARRIVED BY [facility]. PT ON KETAMINE GTT, STOPPED AFTER PT SETTLED INTO ICU BED. EXTRENAL PM ON W MA 30,RATE 60. HERE ON PT'S ARRIVAL-PM OFF FOR INTRINSIC RHYTHM PER W HR 50'S,SB W/O EVIDENCE OF ANY BLOCKS,W BPS~150'S. PM LEFT ATTATCHED BUT OFF.--VW 1330-ETT ADVANCED 2 CM p 1ST CXR. REPEAT CXR W TUBE IN BETTER POSITION. EKG DONE. LABS,BC X2,UA,MRSA SWAB,SP C&S SENT. IN TO SEE. SPOKE W SHORTLY p PT ARRIVED, ORDERS NOTED. DTR AT BEDSIDE.--VW
[2019-06-29 14:04] LABS: CASTS None Seen /LPF (None Seen); CRYSTALS None Seen /LPF (None Seen); SQUAMOUS 0-3 Few /LPF (0-3); URINE WBC None Seen /HPF (0-5)
[2019-06-29 14:05] LABS: BACTERIA None Seen /HPF (None Seen); URINE RBC 3-10 Few /HPF (0-2)
--- NOTE | 2019-06-29 15:04 | NUR ---
1345-CARE TURNED OVER TO KIKI SHEIKH.--VW
[2019-06-29 17:40] LABS: ALBUMIN 3.2 g/dL (3.4-5.0); CREATININE 1.8 mg/dL (0.6-1.0); TOTAL BILIRUBIN 0.3 mg/dL (<0.1-1.0); TOTAL PROTEIN 6.2 g/dL (6.4-8.2)
[2019-06-29 17:41] LABS: POTASSIUM 5.2 mmol/L (3.5-5.1)
--- NOTE | 2019-06-29 19:28 | NUR ---
TOOK OVER CARE AT 1345, PATIENT ON VENT AND NORESPONSIVE AT FIRST. AT ABOUT 1500 PATIENT BEGAN TO WAKE UP. SHE WAS THEN ABLE TO FOLLOW SOME SIMPLE COMMANDS AND NOD YES/NO TO QUESTIONS. PATIENT REMAINS IN SR-SB WITH RATES BETWEEN 48-64, BP STABLE. SPOKE WITH DR HERNANDEZ ABOUT PATIENTS LABS, NEW ORDERS RECEIVED TO GIVE 1 AMP OF D50, 10 UNITS OF REGULAR INSULIN, 1 AMP OF CALCIUM GLUCONATE AND 10MG HIGH DOSE ALBUTEROL TREATMENT FOR K OF 6.6 WHICH CAME DOWN TO 5.2. THE 5.2 K WAS CALLED TO DR HERNANDEZ AND NO NEW ORDERS RECEIVED. PATIENT CARE TURNED OVER TO YARELI SWANSON.
--- NOTE | 2019-06-29 22:34 | NUR ---
Patient started on Propofol drip. Spouse and Superintendent Plant Protection at bedside and updated on care plan. Patient RASS is currently -2 on 10 mcg/kg/min. VS stable and no distress noted. Will continue to monitor.
[2019-06-30] VITALS (24 sets, daily range): BP systolic 123–167; BP diastolic 51–74
[2019-06-30 05:03] LABS: HEMATOCRIT 23.4 % (37.0-47.0); HEMOGLOBIN 6.9 gm/dL (12.0-15.0); MCH 20.5 pg (26.0-34.0); MCHC 29.3 g/dL (28.0-37.0); RBC 3.34 mil/uL (4.20-5.00); RDW 18.5 % (10.5-14.5); WBC 4.6 thou/uL (4.0-11.0)
[2019-06-30 05:22] LABS: ALBUMIN 2.8 g/dL (3.4-5.0); CREATININE 1.2 mg/dL (0.6-1.0)
[2019-06-30 05:23] LABS: BE(vivo) 10.7 mmol/L (-2 to +3); HCO3 36.3 mmol/L (22.0-26.0); PCO2 55.9 mmHg (35.0-45.0); PO2 96.9 mmHg (80.0-100.0); sO2 97.4 % (92.0-98.0)
[2019-06-30 05:26] LABS: POTASSIUM 5.5 mmol/L (3.5-5.1)
[2019-06-30 05:52] LABS: TOTAL BILIRUBIN 0.3 mg/dL (<0.1-1.0); TOTAL PROTEIN 5.9 g/dL (6.4-8.2)
--- NOTE | 2019-06-30 05:52 | NUR ---
Due to a healthcare worker blood exposure, the post exposure protocol has been initiated.
--- NOTE | 2019-06-30 08:18 | HC ---
[facility] [place] [address] CONSULTATION Name: LUPE DOSHI Room #: 246-P [facility] IN M.R.#: [id number] Admission: 06/29/19 Attend Phys: Mario Quintana Discharge: Date of : 50 Report #: [id number] THIS REPORT FOR: //name// CC: Mario Dumont DATE OF SERVICE: 06/29/2019 ENDOCRINE CONSULTATION NOTE REASON FOR CONSULTATION: Uncontrolled type 2 diabetes mellitus. HISTORY OF PRESENT ILLNESS: This is a 69-year-old female patient whose medical background is noted for severe COPD, oxygen dependent with multiple hospitalizations in the past without issue, as well as cavitary lung disease, chronic kidney disease, hypertension, type 2 diabetes mellitus. The patient presented to [facility] with complaints of shortness of breath 2 days ago and was hospitalized, but then was found to have hyperkalemia at about 8.1 and was transferred here. Here, the patient required mechanical ventilation and is sedated. She is not able to be interviewed at this point in time due to the condition she is in and I reviewed her medical chart in detail as well as interviewed her sister who was present at bedside. The patient has been a diabetic for many years and is maintained on Lantus and Apidra, but the sister was unable to outline the doses of these insulin analogs. Also, while the sister does not know the fine details of the patient's glycemic pattern, she knows that the patient has been struggling with uncontrolled hyperglycemia, which tended to be severe here lately and it appears that the patient has elements of chronic kidney disease. In the context of severe hyperkalemia, the patient was given multiple doses of IV insulin in an attempt to control her potassium levels. The one blood sugar value that I have here is 168 mg/dL. REVIEW OF SYSTEMS: Cannot be obtained at this point in time, but what I had learned during my interview of her sister is, RESPIRATION: Progressive shortness of breath, cough, chest tightness. CARDIOLOGY: Hypertension, syncope, reported bradycardia of 29 beats per minute. GASTROINTESTINAL: Nausea, but no vomiting. NEUROLOGY: Unresponsiveness, loss of consciousness, but no seizure activity. PAST MEDICAL HISTORY: 1. Oxygen-dependent COPD with a baseline FEV1 of 0.8 liters, 37% predicted. 2. Asthma. 3. 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 4. Obstructive sleep apnea. [address] [address] CONSULTATION Name: JADA AYALALUPE Donis Room #: 246-P [facility] IN .R.#: [id number] Admission: 06/29/19 Attend Phys: Mario Quintana Discharge: Date of : 50 Report #: [id number] 5. Restless leg syndrome. 6. Lupus. 7. Rheumatoid arthritis. 8. Fibromyalgia. 9. Chronic kidney disease. 10. Hypertension. 11. Type 2 diabetes mellitus. 12. Chronic pain. 13. History of fungal lung mass, status post right lower lobectomy. 14. Chronic hypomagnesemia. 15. Anxiety. 16. Diabetic peripheral neuropathy. 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 18. Anemia. PAST SURGICAL HISTORY: Multiple thoracotomies, breast biopsy, tonsillectomy, adenoidectomy, cervical spine surgery, appendectomy. OUTPATIENT MEDICATIONS: Include Symbicort, Apidra, Lantus, Atrovent, Maurice, Ativan, Norvasc, metoprolol, Lasix, Seroquel, Midamor, Wellbutrin, Daliresp, prednisone 30 mg daily, Lovenox 40 mg daily. ALLERGIES: NAPROSYN, NSAIDS, TIZANIDINE, DOXYCYCLINE. FAMILY HISTORY: Noncontributory. SOCIAL HISTORY: She is an ex-smoker. She quit many years ago. Lives with her . No reported use of alcohol or illicit drugs. PHYSICAL EXAMINATION: GENERAL: female patient who is intubated and sedated. VITAL SIGNS: Blood pressure is 164/67 mmHg, heart rate is 48 beats per minute, respirations 14 per minute, temperature 36 degrees. CONSTITUTIONAL: The patient is intubated and sedated. HEENT: Anicteric sclerae. NECK: Supple. No JVD, no carotid bruits, no lymphadenopathy. CHEST: Noted for limited air entry bilaterally with scattered rales, wheezes, no crackles. HEART: Bradycardic, no murmurs or gallops. ABDOMEN: Soft and lax without tenderness or organomegaly. She has active bowel sounds. EXTREMITIES: Lower extremity exam edema. No skin breaks, ulcerations. Pedal pulses are faint. NEUROLOGIC: Sedated, cannot cooperate with neurological examination. SKIN: No rash, ulceration, discoloration or other major findings. LABORATORY DATA: The patient had one blood glucose value of 168 mg/dL. [address] [address] CONSULTATION Name: LUPE DOSHI Room #: 246-P ADM IN M.R.#: [id number] Admission: 06/29/19 Attend Phys: Mario Quintana Discharge: Date of : 50 Report #: [id number] Otherwise, sodium 134, potassium 6.6, chloride 98, CO2 of 36, anion gap 0, BUN 58, creatinine 2.0, AST 2411. Amylase 113, lipase 296. Total bilirubin 0.4, direct bilirubin 0.1, calcium 9.3, phosphorus 3.7, magnesium 1.8, uric acid 6.6, alkaline phosphatase 79, ALT 1648, total protein 6.5, albumin 3.4, eGFR 25. Lactic acid 2.1. CPK 39. White blood count 8.7, hemoglobin 7.9, hematocrit 27.3, platelets 203. Hemoglobin A1c in March 2017 was 11.5. TSH 0.905. ASSESSMENT AND PLAN: 1. Type 2 diabetes mellitus. As noted above, my current historic information about the patient is limited; however, it is pretty evident that she has had historically poor control of her diabetes as indicated by her hemoglobin A1c as well as the family reports of recent ongoing issues with severe hyperglycemia. The patient is insulin-dependent and utilizes a basal bolus regimen at home. There is not yet enough blood glucose data to better assess her glycemic outlook. There are reports of recurrent use of IV insulin for management of hyperkalemia. In the immediate setting, I will place the patient on Humalog supplemental scale, moderate intensity, monitor her blood glucose values every 6 hours and plan to devise basal insulin dose coverage based on her blood glucose pattern over the next several hours. Also, I requested a hemoglobin A1c to better assess her overall level of control. 2. Respiratory failure. The patient has extensive baseline pulmonary disease with multiple previous admissions for that purpose, multiple thoracotomies, oxygen dependent. She is currently mechanically ventilated. The Pulmonary Service is actively following. 3. Hyperkalemia. This has been severe resistant, but is improving down to 6.6. This might have to do at least partially with the fact that she was hypertensive for an undefined period of time. 4. Bradycardia, severe down to 29, likely associated with hypertension with manifestations of acute renal injury, hepatic injury, and hyperkalemia. The patient is being externally paced and her heart rate is settling in the 50-60 beats per minute range with sustained blood pressure of 144/70. 5. Adrenal insufficiency. The patient's medical background is also noted for fibromyalgia and lupus with a mention of chronic steroid therapy. I wonder if interruption of steroid intake had resulted in an outlook of renal insufficiency. I will collect a cortisol level and have the patient be covered with glucocorticoids for that purpose. I certainly appreciate this consultation by Dr. Gomez. I spent more than 35 minutes reviewing the patient's clinical care reports, laboratory data and other pertinent information from her electronic medical records over 35 minutes. <ELECTRONICALLY SIGNED> By: Dwight Jain MD 06/30/19 0818 1717 1825 Dwight Jain MD /nt
--- NOTE | 2019-06-30 12:25 | EKG ---
[place] [address] [facility] [place] [address] ELECTROCARDIOGRAM REPORT Name: LUPE DOSHI Room #: 246-P ADM IN M.R.#: [id number] Admission: 06/29/19 Attend Phys: Mario Quintana Discharge: Date of : 50 Report #: [id number] THIS REPORT FOR: //name// [facility] Test Date: 2019-06-29 Test Time: 13:30:40 Pat Name: LUPE AYALA Department: Room: 246 P Gender: F Compliance Specialist: Ky COOK : 1950 Requested By: Han Gomez Order Number: [id number] MD: John Sevilla Measurements Intervals [place] Rate: 48 P: 24 OH: 106 QRS: 48 QRSD: 98 T: 63 QT: 490 QTc: 438 Interpretive Statements Sinus bradycardia Short OH interval Borderline low voltage, extremity leads Abnormal R-wave progression, late transition Compared to ECG 10/26/2018 12:47:14 Short OH interval now present Sinus rhythm no longer present Electronically Signed On 06-30-2019 12:24:58 [employer] by John Sevilla [email or web address] <ELECTRONICALLY SIGNED> By: John Sevilla MD 06/30/19 1224 1330 1330 John Sevilla MD /EPI
--- NOTE | 2019-06-30 14:26 | NUR ---
INITIAL ASSESSMENT: LUNA reviewed chart and spoke with attending physician. Pt was transferred to [facility] from [facility] in [place] due to hyperkalemia. Pt is currently intubated and sedated. Pt with hx of lupus/COPD/DM. Pt has used [facility]. Pt has been to [facility] unit several times for post-acute services. Pt and spouse live in [place], [place]. Pt unable to answer questions. No family present at bedside. LUNA spoke with pt's spouse, Juan David, via phone. Introduced role of LUNA. Pt was admitted to [facility] on Wednesday, 06/26 and transferred to [facility] yesterday via [facility]. Prior to admission, pt was independent with ADLs. Pt does have a rollator walker. Pt has home O2 in place through [facility] [place]. Pt is normally on 2L, but has increased to 3-3.5L recently. Pt's PCP is Dr. Morgan Kwok in [place]. Juan David states that he travels for work. Their children live nearby and are able to assist pt as needed. LUNA confirmed that pt's insurance is Medicare Part A only at this time. Pt's [employer] policy which is through Juan David's employer lapsed on 06/21/19, but will be active again on 08/23/19. No weekend discharge planned. Pt to be extubated and then will need therapy evaluations. LUNA is following to assist as needed with discharge planning.
--- NOTE | 2019-06-30 18:33 | NUR ---
VAT CONSULTED FOR A PICC FOR THIS PT. A 4FRDBLPICC PLACED RUABRACHIAL AND CXR REVEALS THE TIP AT THE CAJ. FOR MORE DETAILS PLEASE SEE INSERTION NI
--- NOTE | 2019-06-30 19:46 | NUR ---
PATIENT WAKES UP AND FOLLOWS COMMANDS. WHEN SHE WAKES UP SHE BECOMES VERY AGGITATED AND RESTLESS, COMPLAINING OF PAIN. REASSURANCE PROVIDED. PER DR. DELEON, IF PATIENT NOT AGGITATED, BUT CALM AND COOPERATIVE TODAY, MAY TRIAL HER ON CPAP. THIS DID NOT HAPPEN TODAY SECONDARY TO ABOVE MENTIONED. PROPOFOL TITRATED BASED ON RASS SCORE. SHE IS ABLE TO TELL WHERE HER PAIN IS AND THAT PAIN MEDICATION HELPS. PICC LINE PLACED TODAY PER DR. DELEON ORDERS. PLAN IS FOR POSSIBLE WEANING TRIAL TOMORROW. FAMILY UPDATED ON PROGRESS OF CARE PLAN. PATIENT PROGRESSING TOWARDS PLAN OF CARE.
[2019-07-01] VITALS (21 sets, daily range): BP systolic 137–194; BP diastolic 48–77
[2019-07-01 00:05] LABS: HBsAG-EMPLOYEE EXPOSURE Negative (Negative); HCV AB-EMPLOYEE EXPOSURE 10.6 (0.0-0.9)
[2019-07-01 05:49] LABS: HEMATOCRIT 24.2 % (37.0-47.0); HEMOGLOBIN 7.1 gm/dL (12.0-15.0); MCH 20.6 pg (26.0-34.0); MCHC 29.5 g/dL (28.0-37.0); MCV 69.9 fL (80.0-100.0); RBC 3.46 mil/uL (4.20-5.00); RDW 18.7 % (10.5-14.5); WBC 4.7 thou/uL (4.0-11.0)
[2019-07-01 06:03] LABS: CALCIUM 8.1 mg/dL (8.5-10.1); POTASSIUM 5.2 mmol/L (3.5-5.1)
--- NOTE | 2019-07-01 07:31 | NUR ---
No significant changes in status overnight. Breath sounds still very diminished throughout. Suctioning small amounts of frothy white sputum after breathing tx's. Pt maintains RAAS score -2 on Propofol 80 mcg/kg/min. Has received Morphine and Versed to help with pain and discomfort on vent. Monitor sinus demi/sinus rhythm, rates 47 to 62.
[2019-07-01 11:59] LABS: BE(vivo) 9.1 mmol/L (-2 to +3); PCO2 49.5 mmHg (35.0-45.0); PO2 115.9 mmHg (80.0-100.0); pH 7.455 (7.360-7.450); sO2 98.3 % (92.0-98.0)
--- NOTE | 2019-07-01 18:04 | NUR ---
THIS AM PT ON HIGH DOSE OF PROPOFOL. PROPOFOL WEANED OFF AND CPAP TRIAL INITIATED. ABG'S DONE AND RESULTS CALLED TO DR DELEON. ORDER TO EXTUBATE. PT EXTUBATED AT 1245. O2 SATS STABLE ON FACE SHIELD. WEANING ABLE. TOLERATING CLEAR LIQUID DIET THIS AFTERNOON. FAMILY AT BEDSIDE AND UPDATED. PROGRESSING TOWARDS GOALS PER PLAN OF CARE.
[2019-07-02] VITALS (20 sets, daily range): BP systolic 127–175; BP diastolic 53–87
--- NOTE | 2019-07-02 05:18 | NUR ---
ASSUMED PT CARE AROUND 1900. PT WAS VERY ANXIOUS AND TEARFUL AT BEGINNING OF SHIFT. SHE WANTED HER FAMILY TO COME VISIT AND SHE WANTED TO GET OUT OF BED. PT WAS ABLE TO STATE HER NAME AND THAT SHE WAS IN THE HOSPITAL. OTHERWISE, SHE IS VERY CONFUSED. C/O BACK PAIN, WHICH IMPROVED WITH PAIN MEDICATION. PT HAS CONGESTED, NON-PRODUCTIVE COUGH. VSS. O2 SATS STABLE ON 2L NC. PT WAS GIVEN PRN ANXIETY MEDICATION WITH SOME IMPROVEMENT IN HER ANXIETY. PT SLEPT PART OF THE NIGHT. FALL PRECAUTIONS IN PLACE. PT RESTING QUIETLY IN BED AT THIS TIME. SHE IS LESS ANXIOUS AND TEARFUL THIS MORNING. PROGRESSING SLOWLY TOWARD POC GOALS. WILL CONTINUE TO MONITOR FURTHER.
[2019-07-02 05:39] LABS: HEMATOCRIT 27.4 % (37.0-47.0); HEMOGLOBIN 7.9 gm/dL (12.0-15.0); MCH 20.2 pg (26.0-34.0); MCHC 28.8 g/dL (28.0-37.0); MCV 70.1 fL (80.0-100.0); RBC 3.91 mil/uL (4.20-5.00); RDW 18.3 % (10.5-14.5)
[2019-07-02 05:48] LABS: CALCIUM 8.7 mg/dL (8.5-10.1); POTASSIUM 5.3 mmol/L (3.5-5.1)
--- NOTE | 2019-07-02 10:23 | NUR ---
Pt A, O x 4. NC w/ 2L of oxygen. LS coarse through all lobes. SR on monitor. No edema present. Castelan is still in place. BS >160. Lantus 15units were given. Pt had carb controlled breakfast. Pt tolerated intake of food well by finishing 50%. Pt used toilet after breakfast. Gait unsteady due to lines but walked slowly w/ gait belt. This nurse assisted. Pt had BM, small amt. Pt has sit on recliner since she used toilet. Family at bedside.
--- NOTE | 2019-07-02 22:00 | NUR ---
ULTRASOUND OF RUE DONE WHERE PICC LINE PRESENT. RESULTS NO EVIDENCE OF THROMBIS. WILL CONT TO MONITOR.
[2019-07-03] VITALS (7 sets, daily range): BP systolic 141–158; BP diastolic 52–68
[2019-07-03 05:34] LABS: HEMATOCRIT 29.2 % (37.0-47.0); HEMOGLOBIN 8.5 gm/dL (12.0-15.0); MCH 20.4 pg (26.0-34.0); MCHC 29.2 g/dL (28.0-37.0); MCV 69.9 fL (80.0-100.0); RBC 4.17 mil/uL (4.20-5.00); WBC 6.7 thou/uL (4.0-11.0)
--- NOTE | 2019-07-03 06:00 | NUR ---
A VERY DELIGHTFUL LITTLE LADY. AWAKE AND ALERT. IN GOOD SPIRITS! 2400 CC UO THIS SHIFT. REMAINS A CCU TELE OVERFLOW. BATHED. WILL CONT TO MONITOR.
[2019-07-03 06:36] LABS: ALBUMIN 3.4 g/dL (3.4-5.0); CALCIUM 9.2 mg/dL (8.5-10.1); PHOSPHORUS 4.4 mg/dL (2.5-4.9); POTASSIUM 5.9 mmol/L (3.5-5.1)
--- NOTE | 2019-07-03 12:00 | NUR ---
TERESA LAW'Radha AT 1030. UP IN CHAIR WITH 2 ASSIST, WELL TOLERATED. VOIDED ON TOILET. SPOUSE PRESENT IN ROOM PROVIDING SUPPORT.
--- NOTE | 2019-07-03 18:20 | NUR ---
REPORT GIVEN TO KIKI GRIFFIN AT 9730. PO NARCOTIC PAIN MED WELL TOLERATED. COMPLETED ORDERS FOR ELEVATED POTASSIUM. MEAL TRAY ARRIVED, THEN INSULIN GIVEN PER ORDERS. PT IN WHEELCHAIR, READY FOR TRANSPORT. CALLED KIKI GRIFFIN AGAIN TO UPDATE HER ON ADDITIONAL MEDS ADMINISTERED. PT PROGRESSING. SPOUSE REMAINS PRESENT AND ACCOMPANYING PT TO ROOM #356.
[2019-07-04] VITALS (7 sets, daily range): BP systolic 91–160; BP diastolic 43–79
--- NOTE | 2019-07-04 06:24 | HC ---
[facility] [place] [address] CONSULTATION Name: LUPE DOSHI Room #: 356-P ADM IN M.R.#: [id number] Admission: 06/29/19 Attend Phys: Mario Quintana Discharge: Date of : 50 Report #: [id number] THIS REPORT FOR: //name// CC: Mario Dumont DATE OF SERVICE: 06/30/2019 REASON FOR CONSULTATION: Acute kidney injury and hyperkalemia. HISTORY OF PRESENT ILLNESS: A 69-year-old who is currently intubated and not able to provide me with any history. She has diabetes mellitus, COPD, asthma, chronic narcotic abuse. She is maintained on oxygen at home. She presented to an outside facility with shortness of breath. She was treated for hyperkalemia, where her potassium was found to be 8. External pacing was started. The patient was intubated and moved to our facility. Potassium on presentation was actually down to 6.6. I managed her potassium appropriately overnight, and it seems to be improving and back to her usual level. The patient was evaluated by one of my associates in the past back in 2015 for chronic kidney disease. 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 During those episodes, her creatinine was mildly elevated; however, it does look like that she attained a normal kidney function and the most recent creatinine back in October of this year was stable at 1.0. PAST MEDICAL HISTORY: Extensive and includes the followin. Questionable history of lupus. 2. COPD. 3. Asthma. 4. Right lung lobectomy. 5. Hypomagnesemia. 6. Lung biopsy. 7. Obstructive sleep apnea. 8. Chronic steroid abuse. 9. Fibromyalgia. 10. C. diff. 11. Anemia. 12. Cervical spine surgery. FAMILY HISTORY: Unable to obtain given the patient's mental status. SOCIAL HISTORY: Unable to obtain given the patient's mental status. MEDICATIONS: Listed: 1. Roflumilast. 2. Bupropion. [facility] [address] [facility] [place] [address] CONSULTATION Name: LUPE DOSHI Room #: 356-P [facility] IN ..#: [id number] Admission: 06/29/19 Attend Phys: Mario Quintana Discharge: Date of : 50 Report #: [id number] 3. Amiloride. 4. Furosemide. 5. Metoprolol. 6. Amlodipine. 7. Lorazepam. 8. Insulin. 9. Ropinirole. REVIEW OF SYSTEMS: Unobtainable given the patient's mental status. PHYSICAL EXAMINATION: GENERAL: Intubated. VITAL SIGNS: Blood pressure is 160/69, pulse rate is 59. HEAD AND NECK: ET tube in place. CHEST: No crackles. CARDIOVASCULAR: No rub. ABDOMEN: Soft, nontender. LOWER EXTREMITIES: Trace edema. LABORATORY DATA: Reviewed, pH is 7.4, pCO2 is 55. Sodium is 138, potassium is down to 5.2, BUN is 44, creatinine is down to 1.2. AST is elevated at 910, ALT is elevated at 1151. Hemoglobin is down to 6.9. ASSESSMENT, IMPRESSION AND PLAN: 1. Acute kidney injury. 2. Hyperkalemia. 3. Drug overdose. 4. Chronic obstructive pulmonary disease. 5. Respiratory failure. 6. Narcotic abuse. 7. Remote history of lupus. 8. The patient's kidney function and potassium improved and is almost back to her baseline. This was all related to a prerenal picture given her drug overdose. 9. Continue to monitor those labs for now. 10. Continue hemodynamic support. 11. Avoid nephrotoxins. 12. Keep on the IV fluid. <ELECTRONICALLY SIGNED> By: Ben Shen MD 07/04/19 0624 0708 0725 Ben Shen MD /nt
--- NOTE | 2019-07-04 06:27 | NUR ---
PAITENT IS ALERT AND ORIENTED. PATIENT IS ON 1.5LNC. 3LCN IS BASELINE. PATIENT IS NSR OR ACCERATED JUNCTIONAL ON TELE. PATIENT DENIES PAIN. PATIENT HAS EYE DROPS FOR DRY EYES. PATIENT IS ISO. PATIENT IS UP SBA. PATIENT IS RESTING COMFORTABLY IN BED. WCM.
--- NOTE | 2019-07-04 14:33 | NUR ---
SW reviewed chart and spoke with nursing and attending physician. Pt was transferred to 3 from ICU yesterday and is progressing towards goals for discharge. 5N consult ordered. SW met with pt and family at bedside to discuss discharge plan. Pt is agreeable with post-acute placement. Pt would prefer to go to 5N if she meets criteria. SW discussed alternate options. Pt would prefer a SNF in [place], due to location. Awaiting input from at this time. LUNA is following to assist as needed with discharge planning.
--- NOTE | 2019-07-04 16:46 | NUR ---
ASSUMED CARE OF PT AT APPROX 0700. PT IS ALERT AND ORIENTED X4, MONITORED ON TELE AND ABLE TO MAINTAIN 02 SAT >90 ON NC 02 SETTINGS. DENIES PAIN. ANXIETY TREATED WITH PRN ANXIETY MEDICATION. ASESSMENT CHARTED. PT APPROPRIATE DURING SHIFT. NAD NOTED. WILL CONTINUE TO MONITOR.
[2019-07-05 02:44] VITALS: BP 156/73
--- NOTE | 2019-07-05 03:27 | NUR ---
PATIENT IS ALERT AND ORIENTED. PATIENT IS SBA. PATIENT HAS SOME URINARY FREQUENTCY. NO DYSURIA. PATIENT DENEIS PAIN. PATIENT REQUIRED A SLEEP AID THIS SHIFT. SLEPT WELL. PATIENTS K(+) IS STILL ELEVATED BUT TRENDING DOWN PROVIDER AWARE. PATIENT IS 3LNC WHICH IS BASELINE. PATIENT IS RESTING COMFORTABLY IN BED. WCM. PATIENT IS PROGRESSING TO GOALS.
[2019-07-05 05:08] LABS: HEMATOCRIT 29.1 % (37.0-47.0); HEMOGLOBIN 8.7 gm/dL (12.0-15.0); MCH 20.9 pg (26.0-34.0); MCHC 29.8 g/dL (28.0-37.0); MCV 70.3 fL (80.0-100.0); RBC 4.15 mil/uL (4.20-5.00); RDW 18.6 % (10.5-14.5); WBC 7.9 thou/uL (4.0-11.0)
[2019-07-05 05:22] LABS: ALBUMIN 3.3 g/dL (3.4-5.0); CALCIUM 9.3 mg/dL (8.5-10.1); CREATININE 1.6 mg/dL (0.6-1.0); PHOSPHORUS 4.2 mg/dL (2.5-4.9); POTASSIUM 5.2 mmol/L (3.5-5.1)
[2019-07-05 07:30] VITALS: BP 129/62
[2019-07-05] MEDS ORDERED: LORAZEPAM 1 MG T1 MG PO (10:16)
[2019-07-05] MEDS ORDERED: MIRALAX17 GM PO (10:27)
[2019-07-05] MEDS ORDERED: PREDNISONE 20 M20 M1 PO (10:27)
[2019-07-05] MEDS ORDERED: NOVOLOG100 UNIT/1 SUBQ ×2 (10:27)
[2019-07-05] MEDS ORDERED: HEPARIN SO5000 UNIT/ SUBQ (10:27)
[2019-07-05] MEDS ORDERED: IPRAT-ALBUT 0.5-3 ML INH ×2 (10:27)
[2019-07-05] MEDS ORDERED: AKWA TEARS OIN3.5 GM OPHTHALMIC (10:27)
[2019-07-05] MEDS ORDERED: LANTUS100 UNIT/M SUBQ (10:27)
[2019-07-05] MEDS ORDERED: PEPCID20 MG PO (10:27)
[2019-07-05] MEDS ORDERED: CEFUROXIME500 MG PO (10:31)
[2019-07-05 11:59] VITALS: BP 133/71
--- NOTE | 2019-07-05 12:53 | NUR ---
PT ALERT AND ORIENTED TIMES FOUR. VSS, SR ON TELE. PT DENIES PAIN/SOA. PT TOLERATES MEDS AND MEALS. PT UP WITH STANDBY ASSIST. PT PLANS TO TRANSFER TO REHAB TODAY. PT PROGRESSING TOWRADS POC GOALS.
[2019-07-05 14:42] VITALS: BP 133/71
--- NOTE | 2019-07-05 16:24 | NUR ---
DISCHARGE NOTE: SW reviewed chart and spoke with nursing and attending physician. Pt is medically stable for discharge to 5N today. Pt agreeable with plan. Rehab CM is following to assist as needed with discharge planning.
== END 2019-07-05 14:54 | DRG 917 ==
LOC: ICU 10:25 → 3W 12:03 → ICU 12:18 → 3W 07-03 18:34
PROVIDERS: Hospitalist; Internal Medicine Pulmonary Disease; ADMIT Hospitalist
DX: T40.691A Poisoning by other narcotics, accidental (unintentional), initial encounter (principal); J96.22 Acute and chronic respiratory failure with hypercapnia; J96.21 Acute and chronic respiratory failure with hypoxia; G92 Toxic encephalopathy; N17.9 Acute kidney failure, unspecified; J44.1 Chronic obstructive pulmonary disease with (acute) exacerbation; M06.9 Rheumatoid arthritis, unspecified; M79.7 Fibromyalgia; G89.29 Other chronic pain; E83.42 Hypomagnesemia; F41.9 Anxiety disorder, unspecified; E11.42 Type 2 diabetes mellitus with diabetic polyneuropathy; E87.5 Hyperkalemia; N18.3 Chronic kidney disease, stage 3 (moderate); R53.81 Other malaise; I95.9 Hypotension, unspecified; I12.9 Hypertensive chronic kidney disease with stage 1 through stage 4 chronic kidney disease, or unspecified chronic kidney disease; E11.22 Type 2 diabetes mellitus with diabetic chronic kidney disease; D71 Functional disorders of polymorphonuclear neutrophils; Z79.4 Long term (current) use of insulin; Z90.49 Acquired absence of other specified parts of digestive tract; Z79.899 Other long term (current) drug therapy; Z88.1 Allergy status to other antibiotic agents; Z88.8 Allergy status to other drugs, medicaments and biological substances; Z87.891 Personal history of nicotine dependence; Z90.2 Acquired absence of lung [part of]; Z79.51 Long term (current) use of inhaled steroids; Z86.14 Personal history of Methicillin resistant Staphylococcus aureus infection; Z71.6 Tobacco abuse counseling; Z79.52 Long term (current) use of systemic steroids; Y92.89 Other specified places as the place of occurrence of the external cause; Z23 Encounter for immunization; Z99.81 Dependence on supplemental oxygen
CPT/HCPCS: 10078; 10203; 10879; 27000

== ENCOUNTER 2019-07-05 10:26 | Inpatient (IN) | payer OTHER ==
[~2019-07-05] VITALS: Ht 165.1 cm; Wt 83.0 kg
--- NOTE | ~2019-07-05 | PLAN ---
[facility] [place] [address] REHAB UNIT PLAN OF CARE Name: LUPE DOSHI Room #: 510-P ADM IN M.R.#: [id number] Admission: 07/05/19 Attend Phys: Leon Allred MD Discharge: Date of : 50 Report #: [id number] THIS REPORT FOR: //name// CC: Leon Dumont DATE OF SERVICE: 07/07/2019 PROGRESS NOTE AND OVERALL PLAN OF CARE SUBJECTIVE: The patient seen back today in followup. She was in no distress. Temperature 98.1, pulse 86, respirations 22, and blood pressure 154/76. She is on nasal prong O2, 3 liters. She is working in therapies with sit to stand, transfer standby assistance. Gait standby assistance 75 feet with a four-wheeled walker. Lower body dressing is standby with upper body dressing standby. She has mild comprehensive deficits. Gait has been up to 75 feet standby assistance with a four-wheeled walker. ASSESSMENT: 1. Toxic metabolic encephalopathy with possible hypoxic component. 2. Medical complexity with generalized debilitation. 3. Qduct-ui-pqcgvbj hypercapnic hypoxemic respiratory failure. 4. Chronic obstructive pulmonary disease exacerbation. 5. Acute on chronic renal failure. 6. History of disseminated methicillin-resistant Staphylococcus aureus. 7. Anxiety disorder. 8. Chronic kidney disease stage 3. 9. Diabetes mellitus type 2. 10. History of lupus with rheumatoid arthritis. 11. Hypertension. PLAN: The overall plan of care is based on the preadmission screen, post-admission physician evaluation and information garnered from therapy assessments. 1. Estimated length of stay is probably at least 5-10 days pending progress. 2. Medical prognosis is reasonably good. 3. Anticipated interventions includes the interdisciplinary acute inpatient rehabilitation program. 4. Anticipated functional outcomes would be for the patient to become modified independent at least at a walker level for mobility and ADLs as well as improvement in cognition. 5. Discharge destination would be back to the home setting where she lives with her . 6. Expected therapy by discipline includes PT, OT and speech 1 hour per day each five days a week throughout the duration of the acute inpatient rehabilitation stay. She does have vnjz-zz-hzbdtiel cognitive deficits with [place] [phone] REHAB UNIT PLAN OF CARE Name: LUPE DOSHI Room #: 510-P [facility] IN [facility].#: [id number] Admission: 07/05/19 Attend Phys: Leon Allred MD Discharge: Date of : 50 Report #: [id number] memory deficits. Speech therapy is continuing to work with her in this regard. By: 0821 1608 Leon Allred MD /nt
--- NOTE | ~2019-07-05 | H ---
[facility] [place] [address] HISTORY AND PHYSICAL Name: LUPE DOSHI Room #: 510-P ADM IN M.R.#: [id number] Admission: 07/05/19 Attend Phys: Leon Allred MD Discharge: Date of : 50 Report #: [id number] THIS REPORT FOR: //name// CC: Leon Dumont DATE OF SERVICE: 07/05/2019 HISTORY AND PHYSICAL/POST-ADMISSION PHYSICIAN EVALUATION HISTORY OF PRESENT ILLNESS: The patient is a 69-year-old white female originally admitted to [facility] on 06/29/2019 with severe hyperkalemia, hypoxemia and agitation. She was light flighted from [facility] to [facility]. She was noted to be in a junctional rhythm, sinus demi at 55. She had acute on chronic respiratory failure, COPD exacerbation as well as encephalopathy, toxic metabolic as well as potentially a hypoxic component. She was treated for chronic kidney disease stage 3. 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 She was on a mechanical ventilator and was extubated on 07/02/2019. She gradually stabilized her encephalopathy is gradually improving. She has multiple medical comorbidities. She has had a significant functional decline from her premorbid status. She has now been admitted for acute in-hospital inpatient rehabilitation. PAST MEDICAL HISTORY: Includes COPD, asthma, right lung lobectomy, lupus, chronic pain syndrome, right breast biopsy, right thumb repair, lung biopsy showing diffuse nodular lymphoid hyperplasia, rheumatoid arthritis, on chronic steroids, restless legs syndrome, fibromyalgia, peripheral neuropathy, diabetes mellitus type 2, [place] spotted fever, MRSA. MEDICATIONS: Please see the full medication listing. ALLERGIES: NAPROXEN, TIZANIDINE AND DOXYCYCLINE. SOCIAL HISTORY: Lives at home in a house with her . She is on 3 liters O2 at home. Did not utilize gait aids, was independent with ADLs. She lives with her in [place], [place]. travels for work. Her children are nearby. REVIEW OF SYSTEMS: She did have a right eye spontaneous conjunctival hemorrhage. No headache. No chest pain, shortness of breath, abdominal discomfort. She has a chronic pain syndrome. Complains of generalized weakness. PHYSICAL EXAMINATION: [address] [address] HISTORY AND PHYSICAL Name: LUPE DOSHI Room #: 510-P [facility] IN [facility]#: [id number] Admission: 07/05/19 Attend Phys: Leon Allred MD Discharge: Date of : 50 Report #: [id number] GENERAL: A 69-year-old white female in no obvious distress. VITAL SIGNS: Last recorded temperature 97.4, pulse 90, respirations 20, and blood pressure 133/71. NEUROLOGIC: She is alert. There is a latency to her responses. Some decreased attention. She does follow basic 1 step commands without difficulty. She is pleasant. HEAD, EYES, EARS, NOSE, AND THROAT: Facies appeared to be symmetric. CHEST: Sounded clear except some decreased over her right lung as expected. CARDIOVASCULAR: Sounded regular rate and rhythm. ABDOMEN: Bowel sounds positive, nontender. GENITOURINARY AND RECTAL: Deferred. EXTREMITIES: She has functional range of motion of both upper extremities with strength grade 4-/5. DTRs are trace to 1. Lower extremities, no focal calf swelling, functional range of motion with strength grade 3+ to 4-/5. DTRs are trace to 1. She has been working in therapies with transfers that have been min assist. She has been up a short distance min assist for gait. She is on 3 liters nasal cannula, was on 3 liters nasal prong at home prior. ASSESSMENT: A 69-year-old white female with the following problem list: 1. Toxic metabolic encephalopathy with possible hypoxic component. 2. Medical complexity with generalized debilitation. 3. Aboch-ic-qufgnqz hypercapnic hypoxemic respiratory failure, which has improved. 4. Chronic obstructive pulmonary disease exacerbation. 5. Acute on chronic renal failure. 6. History of disseminated MRSA. Chronic pain, on chronic narcotics. 7. Anxiety disorder. 8. Chronic kidney disease stage 3. 9. Diabetes mellitus type 2. 10. History of lupus with rheumatoid arthritis. 11. Hypertension. PLAN: The patient is admitted for acute in-hospital inpatient rehabilitation. From a postadmission physician evaluation perspective, there are no relevant changes since the preadmission screening. Please see the above review of prior and current medical and functional conditions and comorbidities. Please see the patient's previous and current functional status. As far as risk of complication, she has the above noted medical comorbidities. Initial plan of care involves the interdisciplinary acute inpatient rehabilitation program with goal of maximizing her functional independence, so she can hopefully return back to her prior living situation. Measurable functional goals would be for her to become modified independent with transfers, mobility, ADLs, so she can hopefully return back to her prior living situation. Prognosis is reasonably good with estimated length of stay probably at least 5-10 days pending progress. [facility] [address] [place] [address] HISTORY AND PHYSICAL Name: LUPE DOSHI Room #: 510-P ADM IN .R.#: [id number] Admission: 07/05/19 Attend Phys: Leon Allred MD Discharge: Date of : 50 Report #: [id number] Potential barriers would include her multiple medical comorbidities and decreased functional status. By: [id number] Leon Allred MD /PMT
[~2019-07-05 10:26] MED LIST changes: +LORAZEPAM 1 MG T1 MG PO
[2019-07-05] MEDS ORDERED: PEPCID20 MG PO (10:27)
[2019-07-05] MEDS ORDERED: IPRAT-ALBUT 0.5-3 ML INH ×2 (10:27)
[2019-07-05] MEDS ORDERED: AKWA TEARS OIN3.5 GM OPHTHALMIC (10:27)
[2019-07-05] MEDS ORDERED: MIRALAX17 GM PO (10:27)
[2019-07-05] MEDS ORDERED: LANTUS100 UNIT/M SUBQ (10:27)
[2019-07-05] MEDS ORDERED: NOVOLOG100 UNIT/1 SUBQ ×2 (10:27)
[2019-07-05] MEDS ORDERED: HEPARIN SO5000 UNIT/ SUBQ (10:27)
[2019-07-05] MEDS ORDERED: PREDNISONE 20 M20 M1 PO (10:27)
[2019-07-05] MEDS ORDERED: CEFUROXIME500 MG PO (10:31)
--- NOTE | 2019-07-05 16:02 | NUR ---
1530 ADMITTED TO ROOM 510. PATIENT IS ALERT AND ORIENTEDX4, BUT FORGETFUL AT TIMES. PATIENT LUQUE'S, ASSISTANT COACH ARE EQUAL. LUNGS ARE CLEAR AND DEMINISHED. PATIENT IS ON 02 AT 3L PER N/C. ABD IS SOFT WITH BSX4. UP TO THE BATHROOM WITH ASSIST OF 1 WITH GAIT BELT AND WALKER. FALL AND SAFETY PROTOCOLS IN PLACE. DENIES PAIN. ST HERE TO EVAL. PT/OT EVALS IN A.M. WILL CONTINUE TO MONITER. UP IN RECLINER WITH CALL LIGHT IN REACH.
[2019-07-05 20:20] VITALS: BP 190/80
[2019-07-05 23:00] VITALS: BP 155/82
--- NOTE | 2019-07-06 02:57 | NUR ---
PATIENT RESTING WELL AFTER ATIVAN AND SEROQUEL AT HS. 4 UNITS INSULIN GIVEN PRIOR TO HS SNACK OF PROTIEN FROM LATE TRAY. STATES SHE TYPICALLY VOIDS EVERY 2 HOURS ALL NIGHT LONG, BUT HAS NOT VOIDED IN THE PAST 3
[2019-07-06 05:07] LABS: HEMOGLOBIN 8.2 gm/dL (12.0-15.0); MCH 20.8 pg (26.0-34.0); MCHC 29.2 g/dL (28.0-37.0); RBC 3.94 mil/uL (4.20-5.00); RDW 18.3 % (10.5-14.5); WBC 8.8 thou/uL (4.0-11.0)
[2019-07-06 05:33] LABS: CREATININE 1.2 mg/dL (0.6-1.0)
[2019-07-06 05:43] LABS: POTASSIUM 4.2 mmol/L (3.5-5.1)
[2019-07-06 09:00] VITALS: BP 110/65
--- NOTE | 2019-07-06 10:46 | NUR ---
chart review, pt up in recliner chair, noted pt on oxygen per nasal canula. intro to cm, dcp and team meeting. per pt she plans on returning home, going to get a " new primary dr they almost killed me 2 time per"/ robinson. pt reported " independent at home, have home o2 and btx, cane and rollator. still drive vehicle but have not driven since october. had rehab in past"/robinson. will cont following as needed for dc needs. been to [facility] in past, and also been on service with [facility] in the past [phone] revoked to come to hospital months ago.
--- NOTE | 2019-07-06 14:54 | NUR ---
ASSUSMED CARE AT 0700. PATIENT IS ALERT AND ORIENTED X3. PATIENT LUQUE'S, SUPERINTENDENT LOCAL ARE EQUAL. LUNGS ARE CLEAR AND DEMINISHED. PATIENT CONTINUES ON 02 AT 3L PER N/C. ABD IS SOFT WITH BSX4. PATIENT HAS 2 PORT PICC LINE IN HER RIGHT UPPER ARM. UP IN CHAIR FOR MEALS. FALL AND SAFETY PROTOCOLS IN PLACE. DENIES ANY PAIN AT THIS TIME. CONTINUES TO PROGRESS SLOWLY TOWARDS D/C GOALS. WILL CONTINUE TO MONITER.
[2019-07-06 19:07] VITALS: BP 154/76
--- NOTE | 2019-07-06 22:44 | NUR ---
PT ASSESSMENT COMPLETED AND VSS. MEDS GIVEN ORDERED AND WELL TOLERATED. SUPPORTIVE FAMILY AT BEDSIDE. CONTACT ISOLATION FOLLOWED. PT PLEASANT AND VERY FORGETFUL. SAT WNL ON NC. SOA WITH EXERTION. VOIDING MODERATE AMOUNT OF YELLOW URINE. UP WITH ASST/GAIT/WALKER - STEADY AT THIS TIME. SLEEPING. WILL CONTINUE TO MONITOR FREQUENTLY. INSULIN GIVEN FOR BG OF 175.
[2019-07-07 07:30] VITALS: BP 141/68
--- NOTE | 2019-07-07 08:13 | HC ---
[facility] [place] [address] CONSULTATION Name: LUPE DOSHI Room #: 510-P ADM IN M.R.#: [id number] Admission: 07/05/19 Attend Phys: Leon Allred MD Discharge: Date of : 50 Report #: [id number] THIS REPORT FOR: //name// CC: Leon Dumont DATE OF SERVICE: 07/06/2019 ENDOCRINE CONSULTATION NOTE. CONSULTING PHYSICIAN: Dr. Leon Allred. REASON FOR CONSULTATION: Uncontrolled type 2 diabetes mellitus. HISTORY OF PRESENT ILLNESS: This is a very pleasant 69-year-old female patient who was admitted almost 2 weeks ago to [facility] when she was transferred from [facility] essentially in an unresponsive state, and respiratory failure, and on mechanical ventilation support. The patient spent several days in the ICU where she dealt with issues of respiratory failure, encephalopathy, especially noting her severe lung disease at baseline. Fortunately, the patient did well, recovered and managed to successfully come off mechanical ventilation and remained stable from the respiratory standpoint. At that time, I follow the patient for the issue of type 2 diabetes mellitus. The patient has had that for many years. She is usually maintained on a regimen of basal bolus insulin containing both Lantus insulin at a dose of 40 units and NovoLog insulin at a dose of 10-30 units t.i.d. a.c. The patient knows that while she historically had done a fair job controlling diabetes mellitus that she has had more difficulties over the past few months, whereby she had seen blood sugar values that have run as high as 300-400 mg/dL. She has not had particular issues with hypoglycemia. During her hospital stay, the patient was initiated on basal bolus insulin and went through some adjustments based on her blood glucose values. She is currently on a combination of Lantus insulin 40 units at bedtime, Humalog insulin 24 units t.i.d. a.c. in addition to supportive Humalog supplemental scale, low intensity. The patient had an initial good response to insulin therapy, but then needed multiple advancement of her dosage due to uncontrolled hyperglycemia. The patient believes that she does not have major issues with retinopathy; however, she is known to have chronic kidney disease and has had intermittent difficulties with diabetic neuropathy in the past. REVIEW OF SYSTEMS: CONSTITUTIONAL: Fatigue, tiredness, but not body weight changes, fever or chills. HEENT: Negative for sore throat, ear pain, ear drainage. PULMONARY: Shortness of breath, cough at baseline. She is oxygen dependent. [address] [address] CONSULTATION Name: LUPE DOSHI Room #: 510-P [facility] IN ..#: [id number] Admission: 07/05/19 Attend Phys: Leon Allred MD Discharge: Date of : 50 Report #: [id number] She has severe COPD. She has had multiple admissions for pulmonary issues in the past, but no hemoptysis. CARDIAC: Occasional chest discomfort, palpitations, intermittent issues with lower extremity swelling. GASTROINTESTINAL: Occasional abdominal discomfort, distention, nausea, but no vomiting or hematemesis. NEUROLOGY: Occasional numbness, lightheadedness, but without loss of consciousness or seizure activity. PSYCHIATRIC: Mood fluctuations. No hallucinations or delusions. SKIN: No rash, ulceration, discoloration or other major abnormalities. Otherwise, review of systems noncontributory other than what is mentioned in HPI. PAST MEDICAL HISTORY: 1. COPD. 2. Asthma. 3. Right lung lobectomy. 4. Lupus. 5. Chronic pain syndrome. 6. Type 2 diabetes mellitus. 7. Pulmonary nodular lymphoid hyperplasia. 8. Rheumatoid arthritis. 9. Restless leg syndrome. 10. Fibromyalgia. 11. Peripheral neuropathy. 12. [place] spotted fever. ALLERGIES: She is allergic to NAPROXYNE, TIZANIDINE, DOXYCYCLINE. FAMILY HISTORY: Noncontributory. SOCIAL HISTORY: The patient lives with her . She denies the current use of tobacco or alcohol. CURRENT MEDICATIONS: Include Lantus insulin 14 units at bedtime, Humalog insulin 24 units t.i.d. a.c., albuterol/ipratropium p.r.n., Ativan 0.5 mg q. 8 hours p.r.n., Wellbutrin-XL 300 mg daily, Ceftin 500 mg b.i.d., Pepcid 20 mg b.i.d., Lasix 20 mg, Mucinex ER 600 mg b.i.d., Norvasc 10 mg b.i.d., prednisone 40 mg daily, Seroquel 25 mg at bedtime, Requip 6 mg daily. PHYSICAL EXAMINATION: GENERAL: Pleasant female patient who is not in apparent pain or distress. VITAL SIGNS: Blood pressure is 110/65 mmHg, heart rate is 82 beats per minute, respirations 22 per minute, temperature 36.6 degrees. CONSTITUTIONAL: The patient appears comfortable, not in apparent distress. [facility] [address] [place] [address] CONSULTATION Name: LUPE DOSHI Room #: 510-[facility] IN .R.#: [id number] Admission: 07/05/19 Attend Phys: Leon Allred MD Discharge: Date of : 50 Report #: [id number] HEENT: Anicteric sclerae. Intact extraocular motions. NECK: Supple, without JVD, carotid bruits or lymphadenopathy. CHEST: Noted for limited air entry bilaterally with scattered rales, rhonchi and occasional wheezes. HEART: Regular rate and rhythm without murmurs or gallops. ABDOMEN: Soft and lax without tenderness or organomegaly. She has no guarding. Has active bowel sounds. EXTREMITIES: Lower extremity exam is noted for trace ankle edema, skin breaks, ulcerations. Faint pedal pulses, moderately diminished sensation to light touch. NEUROLOGIC: Awake, alert and oriented to time, place and person. The remainder of her examination is nonfocal other than for the peripheral sensory deficits. PSYCH: Pleasant, interactive, appropriate. Normal mood and affect. LABORATORY DATA: Blood glucose values have been resistant and been mostly in the 200-300 mg/dL over the past 3 days, but over the past 24 hours, the patient managed to bring her blood glucose values down as low as 151 mg/dL. There is no recording of hypoglycemia. Otherwise, sodium 136, potassium 4.2, chloride 102, CO2 of 25, anion gap 9, BUN 46, creatinine 1.2, glucose 283. AST 19, amylase 113, lipase 296. Total bilirubin 0.3, direct bilirubin 0.1, calcium 9.0, phosphorus 4.2, magnesium 1.8, uric acid 6.6, ALT 1151, total protein 5.9, albumin 3.3, GFR 45. Lactic acid 2.1. White blood count 8.8, hemoglobin 8.2, hematocrit 28, platelets 185. TSH 0.905. Hemoglobin A1c 8. ASSESSMENT AND PLAN: 1. Type 2 diabetes mellitus. As noted above, the patient has had a longstanding history with type 2 diabetes mellitus. She has done a fair job at home controlling it with her basal bolus regimen. Upon presentation, she understandably had significantly lower insulin needs in the context of her comatose state and lack of p.o. intake. However, this outlook changed quickly as she resumed p.o. intake and we have seen her insulin needs progressively rise to essentially close to what she does at home. Another factor to consider is her ongoing glucocorticoid therapy, which is probably adding to her insulin needs. That said, I would like to maintain the current regimen for the time being, especially with glimpses of improvement and adequate control noted on her regimen, I am starting her blood glucose values yesterday. Continue the current regimen and maintain blood glucose monitoring a.c. and at bedtime and adjust her regimen going forward as dictated by her blood glucose needs. 2. Hypertension. The patient's level of blood pressure control is adequate, continue the current regimen. 3. Encephalopathy. This has improved steadily since her extubation and continued recovery. She continues to be monitored closely for this. 4. Chronic obstructive pulmonary disease. The patient continues to be on bronchodilator therapy and glucocorticoid therapy. [address] [address] CONSULTATION Name: LUPE DOSHI Room #: 510-P ADM IN M.R.#: [id number] Admission: 07/05/19 Attend Phys: Leon Allred MD Discharge: Date of : 50 Report #: [id number] I certainly appreciate this consultation by Dr. Allred. <ELECTRONICALLY SIGNED> By: Dwight Jain MD 07/07/19 0813 [id number] Dwight Jain MD /nt
--- NOTE | 2019-07-07 15:18 | NUR ---
ASSUMED CARES AT 0700. PT AWAKE, ALERT AND ORIENTED*4. DENIES PAIN. LS COARSE AND DIMIMINISHED IN THE BASES, PT CONTINUES TO RECEIVE BREATHING RX SCHEDULED, OM 3L OXYGEN VIA NC. CONTINUES TO HAVE SOB WITH EXERCION. PICC LINE ON RIGHT UPPER ARM REMAINS INTACT AND PATENT. PT UP WITH 1 MIN ASSIST, GB AND WALKER AND TOLERATED WELL. ISOLATION PRECAUTIONS MAINTAINED. Q1H VISUAL CHECKS. CALL LIGHT WITHIN REACH. FALL PRECAUTIONS IN PLACE
[2019-07-07 19:40] VITALS: BP 147/79
--- NOTE | 2019-07-08 01:07 | NUR ---
PATIENT ASSESSED AND IS ALERT X 4. SKIN WARM AND DRY. CALLS OUT APPROPRIATELY. IN ISOLATION DUE TO MRSA OF NARES. UP WITH 1 PERSON ASSIST WITH GAIT BELT AND WALKER. GETS SOA ON ACTIVITY. IS HAVING A XRAY IN AM. HAS A RIGHT SL PICC FLUSHES WELL. TAKES MEDS WHOLE WITH H20 . HAD PRUNE JUICE AND MIRALX TODAY WITH ONLY HAVING SMALL AND MEDIUM STOOL TODAY. BED ALARM ON. REFUSED ATIVAN LAST NIGHT. ACCU CHECK WAS 228. INSULIN GIVEN PER ORDERS. CONT PLAN OF CARE. DENIES ANY PAIN.
--- NOTE | 2019-07-08 12:36 | NUR ---
ASSUMED CARES AT 0700. PT AWAKE, ALERT AND ORIENTED*4. DENIES PAIN AT THIS TIME. C/O ANXIETY, ATIVAN ADMINISTERED THIS AM. VITALS REMAIN STABLE. RIGHT UPPER ARM PICC REMAINS INTACT AND PATENT. LS REMAIN COARSE AND PT CONTINUES TO COUGH UP SECRETIONS, SOB REMAINS WITH EXERTION, SATS >95% ON 3L VIA NC. CHEST XRAY SCHEDULED FOR THIS AFTERNOON. BG 200-300 RANGE, INSULIN ADMINISTERED ORDERED. PT UP WITH 1 MIN ASSIST, GB AND WALKER. PARTICIPATED IN ALL THERAPIES AND CONTINUES TO PROGRESS TOWARDS DC GOALS. Q1H VISUAL CHECKS. CALL LIGHT WITHIN REACH. FALL PRECAUTIONS IN PLACE
[2019-07-08 19:37] VITALS: BP 178/48
--- NOTE | 2019-07-08 23:52 | NUR ---
PT ASSESSMENT DONE AND VSS. MEDS GIVEN AND WELL TOLERATED. FALL PRECAUTIONS IN PLACE. HOURLY ROUNDING. CALL LIGHT IN REACH. SLEEPING WELL. WILL CONTINUE TO MONITOR.
[2019-07-09 06:01] LABS: ABSOLUTE NEUTROPHILS 6.3 thou/uL (1.4-8.2); BASOPHILS 0.1 % (0.0-2.0); EOSINOPHILS 0.8 % (0.0-3.0); HEMATOCRIT 26.6 % (37.0-47.0); HEMOGLOBIN 7.8 gm/dL (12.0-15.0); LYMPHOCYTES 30.7 % (24.0-44.0); MCH 21.1 pg (26.0-34.0); MCHC 29.4 g/dL (28.0-37.0); MCV 71.8 fL (80.0-100.0); MONOCYTES 8.5 % (1.0-8.0); PLATELET COUNT 234 thou/uL (150-400); POLYS 59.9 % (36.0-66.0); RDW 19.7 % (10.5-14.5); WBC 10.5 thou/uL (4.0-11.0)
[2019-07-09 06:19] LABS: ALBUMIN 3.2 g/dL (3.4-5.0); CALCIUM 9.1 mg/dL (8.5-10.1); CREATININE 1.3 mg/dL (0.6-1.0); MAGNESIUM 1.6 mg/dL (1.8-2.4); PHOSPHORUS 4.8 mg/dL (2.5-4.9); POTASSIUM 3.8 mmol/L (3.5-5.1); TOTAL BILIRUBIN 0.2 mg/dL (<0.1-1.0); TOTAL PROTEIN 6.3 g/dL (6.4-8.2)
[2019-07-09 07:05] LABS: ANISOCYTOSIS 2+; HYPOCHROMASIA 2+; MICROCYTES 2+; PLATELET ESTIMATE NORMAL
[2019-07-09 10:00] VITALS: BP 133/62
--- NOTE | 2019-07-09 18:29 | NUR ---
PT ALERT AND ORIENTED TIMES FOUR. VSS. 99%3L. PT DENIES PAIN/SOA. PT TOLERATES MEDS AND MEALS. PT UP TO RESTROOM WITH STAND BY ASSIST. PT PROGRESSING TOWRADS POC GOALS.
[2019-07-09 19:45] VITALS: BP 141/71
--- NOTE | 2019-07-09 23:43 | NUR ---
PT ASSESSMENT DONE AND VSS. MEDS GIVEN AND WELL TOLERATED. FALL PRECAUTIONS IN PLACE. HOURLY ROUNDING. CALL LIGHT IN REACH. SLEEPING WELL. WILL CONTINUE TO MONITOR.
[2019-07-10 05:48] LABS: HEMOGLOBIN 7.8 gm/dL (12.0-15.0); MCH 21.1 pg (26.0-34.0); MCHC 29.9 g/dL (28.0-37.0); MCV 70.7 fL (80.0-100.0); PLATELET COUNT 250 thou/uL (150-400); RBC 3.67 mil/uL (4.20-5.00); RDW 19.9 % (10.5-14.5); WBC 10.7 thou/uL (4.0-11.0)
[2019-07-10 06:27] LABS: CALCIUM 9.2 mg/dL (8.5-10.1); CREATININE 0.9 mg/dL (0.6-1.0); MAGNESIUM 1.6 mg/dL (1.8-2.4); POTASSIUM 3.6 mmol/L (3.5-5.1)
[2019-07-10 06:44] LABS: ABSOLUTE NEUTROPHILS 6.3 thou/uL (1.4-8.2); METAMYELOCYTES 1 %; MYELOCYTES 1 %; PLATELET ESTIMATE NORMAL
[2019-07-10 06:45] LABS: ANISOCYTOSIS 2+; HYPOCHROMASIA 2+; MICROCYTES 1+
[2019-07-10 08:30] VITALS: BP 145/77
[2019-07-10 13:15] VITALS: BP 151/64
--- NOTE | 2019-07-10 16:33 | NUR ---
ASSUMED CARE AT SHIFT CHANGE, ALERT AND ORIENTED X4. DENIES ANY DISCOMFORT. VS AND ASSESMENT DOCUMENTED. BG [address] BURGESS NOTIFIED, AND HE LOWERED INSULIN DOSAGE. PROGRSSEIN TOWARDS GOALS AND WILL CONTINUE WITH POC.
[2019-07-10 19:15] VITALS: BP 138/67
--- NOTE | 2019-07-11 00:23 | NUR ---
PT ALERT AND ORIENTED X 4. AMB TO BR WITH WALKER AND ASSIST X 1 WITHOUT DIFFICULTY. RIGHT PICC LINE INTACT. BLOOD SUGAR 177 AT HS. INSULIN GIVEN ORDERED. SNACK GIVEN. PT DENIES PAIN OR DISCOMFORT. BED ALARM ON FOR SAFETY. PT CHECKED ON HOURLY ROUNDS. PT SOB WITH EXERTION. JUST REQUESTED BREATHING TREATMENT AND RT IN TO GIVE IT TO HER. PT STATES HEARING IN RIGHT EAR HAS IMPROVED.
[2019-07-11 10:32] VITALS: BP 135/72
--- NOTE | 2019-07-11 11:35 | NUR ---
ASSUMED CARE AT 0700. PATIENT IS ALERT AND ORIENTED X4. PATIENT LUQUE'S, MITERING MACHINE OPERATOR ARE EQUAL. LUNGS ARE CLEAR AND DEMINISHED WITH OCCASIONAL WHEEZES. PATIENT IS ON 02 AT 3L PER N/C. 02 SAT 99%. PATIENT CONTINUES ON RESPIRATORY TX. ABD IS SOFT WITH BSX4. UP TO THE BR TO VOID MARY COLORED URINE. PATIENT CONTINUES TO HAVE EAR GTTS TO HER RIGHT EAR R/T LOSS OF HEARING. PICC LINE IN LEFT UPPER ARM IS DRY AND INTACT. PLAN REMOVAL SOON. CONTNUES IN ISOLATION FOR MRSA OF NARES. OUT TO DINING ROOM FOR MEALS. UP WITH ASSIST OF 1 STAFF, GAIT BELT AND WALKER. FALL AND SAFETY PROTOCOLS IN PLACE. DENIES PAIN AT THIS TIME. CONTNUES TO PROGRESS SLOWLY TOWARDS D/C GOALS. WILL CONTINUE TO MONITER.
--- NOTE | 2019-07-11 11:39 | NUR ---
1000 PATIENT WAS AMBULATING BACK TO HER ROOM AND BECAME SOA. PATIENT HAS LOW ENDURANCE. PATIENT ASSISTED TO RECLINER, WITH FEET ELEVATED. PATIENT 02 INCREASED TO 4L PER N/C. VS CHECKED. 137/68, P 84, R 20, 02 SAT 100%. 02 DECREASED TO 3L. PATIENT RESTING QUIETLY IN RECLINER. P.T. WILL LET HER REST BETWEEN THERAPIES TODAY R/T ENDURANCE. WILL CONTINUE TO MONITER.
--- NOTE | 2019-07-11 12:36 | NUR ---
team meeting, recommendation: ( pt, ot, st and nursing), family to assist with bills and pills.
[2019-07-11 19:40] VITALS: BP 150/79
--- NOTE | 2019-07-11 23:41 | NUR ---
PT ASSESSMENT DONE AND VSS. MEDS AND INJECTIONS GIVEN; WELL TOLERATED. FALL PRECAUTIONS IN PLACE. SLEEPING WELL. HOURLY ROUNDING. CALL LIGHT IN REACH. WILL CONTINUE TO MONITOR.
[2019-07-12 10:11] VITALS: BP 148/70
[2019-07-12 10:38] LABS: ABSOLUTE NEUTROPHILS 7.4 thou/uL (1.4-8.2); BASOPHILS 0.3 % (0.0-2.0); EOSINOPHILS 1.4 % (0.0-3.0); HEMATOCRIT 25.2 % (37.0-47.0); HEMOGLOBIN 7.5 gm/dL (12.0-15.0); LYMPHOCYTES 12.5 % (24.0-44.0); MCHC 29.8 g/dL (28.0-37.0); MCV 70.5 fL (80.0-100.0); PLATELET COUNT 267 thou/uL (150-400); POLYS 78.8 % (36.0-66.0); RBC 3.57 mil/uL (4.20-5.00); RDW 20.1 % (10.5-14.5); WBC 9.4 thou/uL (4.0-11.0)
[2019-07-12 10:46] LABS: MAGNESIUM 1.4 mg/dL (1.8-2.4); POTASSIUM 4.1 mmol/L (3.5-5.1)
--- NOTE | 2019-07-12 10:57 | NUR ---
DISCHARGE PLANNING. ANTICIPATED DISCHARGE PLANNED FOR 07/14. DISCHARGE TO HOME WITH HOME HEALTH SERVICES. DR ASHOK VERA TO FOLLOW FOR SERVICES. PATIENT REFERRAL FAXED TO [facility]. CALL PLACED TO [facility], SPOKE TO KAVITA IN INTAKE. KAVITA STATES [facility] DOES NOT SERVICES [facility]. CM NOTIFIED. FOLLOWING TO ASSIST.
[2019-07-12 11:11] LABS: ANISOCYTOSIS 2+; HYPOCHROMASIA 1+; MICROCYTES 2+; PLATELET ESTIMATE NORMAL
--- NOTE | 2019-07-12 17:34 | NUR ---
PT ALERT AND ORIENTED TIMES FOUR. VSS, PT STATES SHE DIDNT FEEL WELL THIS MORNING. PASSENGER RATE CLERK ON UNIT LABS AND CHEST XRAY ORDERED. PT BETTER THIS AFTERNOON. PT TOLERATES MEDS AND MEALS. PT WORKED WELL WITH PT/OT THIS AFTERNOON. AT BEDSIDE. PT EXCITED FOR POSSIBLE DISCHARGE ON WEDNESDAY.
[2019-07-12 19:08] VITALS: BP 140/58
--- NOTE | 2019-07-13 01:21 | NUR ---
PT ALERT AND ORIENTED X 4. AMB TO BR WITH WALKER AND ASSIST X 1. SOB WITH EXERTION. 02 ON AT 3L PER NC CONT. 02 SAT 99%. RIGHT PICC LINE INTACT. BLOOD SUGAR 339 AT HS. INSULIN GIVEN ORDERED. PT C/O CHEST PAIN AT AROUND 0100. THIS NURSE WAS ON BREAK. KIKI SAUCEDO WENT TO CHECK ON PT AND SHE WAS SLEEPING. WOKE PT AND ASSESSED HER. HR REGULAR. PT STATED SHE HASN'T BEEN ON HER VERAPAMIL AND SHE HAS CHEST PAIN AT TIMES WHEN NOT TAKING THIS MED. PT PRESENTLY SLEEPING. RESP REGULAR. IN NO APPARENT DISTRESS. WILL CONTINUE TO MONITOR.
--- NOTE | 2019-07-13 11:07 | NUR ---
ASSUMED CARE AT 0700 THIS MORNING. PT. IN BED. BLOOD SUGAR WAS 99 THIS MORNING. VITALS STABLE. UP TO EAT IN THE DINING ROOM WITH STAFF ASSISTANCE. TOOK MEDICATIONS WITHOUT PROBLEMS NOTED. LUNG SOUNDS DIMINISHED. HE IS PLEASANT AND COOPERATIVE WITH STAFF AND PEERS.
[2019-07-13 21:05] VITALS: BP 135/80
--- NOTE | 2019-07-14 | NUR ---
PT ALERT AND ORIENTED X 4. MODIFIED INDEPENDENT IN ROOM WITH WALKER. 02 ON AT 3L PER NC CONT. RIGHT PICC LINE INTACT. BLOOD SUGAR 196 AT HS. INSULIN GIVEN ORDERED, SNACK GIVEN. LORAZEPAM GIVEN AT HS PER PT REQUEST FOR ANXIETY. PT APPEARS TO BE SLEEPING ON HOURLY ROUNDS.
[2019-07-14 07:44] VITALS: BP 147/71
[2019-07-14 09:45] VITALS: BP 147/71
[2019-07-14] MEDS ORDERED: HYDROCODON-ACE1 EAC7 PO (09:58)
[2019-07-14] MEDS ORDERED: PEPCID20 MG PO (10:05)
[2019-07-14] MEDS ORDERED: MIRALAX17 GM PO ×2 (10:05→11:11)
[2019-07-14] MEDS ORDERED: MUCINEX600 MG PO (10:05)
[2019-07-14] MEDS ORDERED: TYLENOL325 MG PO ×2 (10:05→11:11)
[2019-07-14] MEDS ORDERED: LANTUS100 UNIT/M SUBQ (10:05)
[2019-07-14] MEDS ORDERED: SEROQUEL 25 MG25 M1 PO ×2 (10:05→11:11)
[2019-07-14] MEDS ORDERED: EAR DROPS15 ML OTIC (10:05)
[2019-07-14] MEDS ORDERED: PREDNISONE 10 M10 MG PO ×2 (10:05→11:11)
[2019-07-14] MEDS ORDERED: NEURONTIN600 MG PO ×2 (10:05→11:11)
[2019-07-14] MEDS ORDERED: MAGOX 400400 MG PO ×2 (10:05→11:11)
[2019-07-14] MEDS ORDERED: DALIRESP500 MCG PO ×2 (10:05→11:11)
--- NOTE | 2019-07-14 10:57 | NUR ---
zena notified by sharyn that [facility] location is still say cant take because pt has another primary insurance."/liaison. education that pt already gone home and need to have hh for her " [facility] [place]"/sharyn [facility] liaison. zena notified die setter and md, will cont hh needs.
[2019-07-14] MEDS ORDERED: IPRAT-ALBUT 0.5-3 ML INH ×2 (11:02→11:11)
--- NOTE | 2019-07-14 11:23 | NUR ---
ASSUMED CARES AT 0700. PT AWAKE, ALERT AND ORIENTED*4. C/O MILD L WRIST PAIN. VITALS REMAIN STABLE. LS COARSE, ON 3L OXYGEN VIA NC, RECEIVING BREATHING TREATMENTS NEEDED. ATIVAN GIVEN AT 1120 FOR ANXIETY. ABDOMEN SOFT AND DISTENDED, LAST BM 07/11, MIRALAX ADMINISTERED. PT MOD I IN THE ROOM AND TOLERATED WELL. PT TEACHING COMPLETED ON MEDICATIONS AND RELAXATION TECHNIQUES. PICC LINE ON ARM RIGHT DC'D AND PRESSURE HELD FOR 10MINS. NO BLEEDING NOTED. PT DC'D AT 1120 WITH AND [facility]SPORT.
== END 2019-07-14 11:30 | disposition home health service (06) | DRG 91 ==
LOC: ENTRNSPT 07-14 11:08
PROVIDERS: Internal Medicine; Nurse Practitioner; ADMIT Physical Medicine & Rehabilitation
DX: G92 Toxic encephalopathy (principal); J96.21 Acute and chronic respiratory failure with hypoxia; J96.22 Acute and chronic respiratory failure with hypercapnia; J44.1 Chronic obstructive pulmonary disease with (acute) exacerbation; N17.9 Acute kidney failure, unspecified; F33.1 Major depressive disorder, recurrent, moderate; E11.65 Type 2 diabetes mellitus with hyperglycemia; E11.22 Type 2 diabetes mellitus with diabetic chronic kidney disease; E11.319 Type 2 diabetes mellitus with unspecified diabetic retinopathy without macular edema; G89.4 Chronic pain syndrome; M06.9 Rheumatoid arthritis, unspecified; G25.81 Restless legs syndrome; M79.7 Fibromyalgia; E11.42 Type 2 diabetes mellitus with diabetic polyneuropathy; I12.9 Hypertensive chronic kidney disease with stage 1 through stage 4 chronic kidney disease, or unspecified chronic kidney disease; F41.9 Anxiety disorder, unspecified; N18.3 Chronic kidney disease, stage 3 (moderate); G47.33 Obstructive sleep apnea (adult) (pediatric); E87.5 Hyperkalemia; E83.42 Hypomagnesemia; G31.84 Mild cognitive impairment of uncertain or unknown etiology; D63.8 Anemia in other chronic diseases classified elsewhere; Z88.1 Allergy status to other antibiotic agents; Z88.8 Allergy status to other drugs, medicaments and biological substances; Z99.81 Dependence on supplemental oxygen; Z90.49 Acquired absence of other specified parts of digestive tract; Z87.891 Personal history of nicotine dependence; Z79.899 Other long term (current) drug therapy; Z79.4 Long term (current) use of insulin; Z79.891 Long term (current) use of opiate analgesic; Z86.14 Personal history of Methicillin resistant Staphylococcus aureus infection
CPT/HCPCS: 10112